=== PATIENT | female | born 1940 | race Caucasian/White ===

== ENCOUNTER 2017-10-27 10:24 | Inpatient (IN) | payer MEDICARE, OTHER ==
[2017-10-27] MEDS ORDERED: LORazepam 0.5 MG Tab PO PRN (12:14)
--- NOTE | 2017-10-27 12:59 | CR ---
DATE OF SERVICE: 10/27/2017 CLINICAL DATA: Cellulitis of unspecified part of limb. RIGHT ANKLE: There is soft tissue swelling over the medial and lateral malleoli. There is diffuse osteopenia. No acute fracture or dislocation. No focal lytic or blastic bone lesions. There are osteoarthritic changes involving multiple joints. There are vascular calcifications in the soft tissues. No other significant findings. [id number] MTDD
[2017-10-27] MEDS: Sodium Chloride 0.9% 1,000 ML IV SCH (13:00)
[2017-10-27] MEDS: Piperacillin/Tazobactam 3.375 GM in Sodium Chloride 0.9% 50 ML IV SCH ×2 (13:15→21:01)
[2017-10-27] MEDS: Warfarin 2.5 MG Tab PO SCH (18:27)
[2017-10-27] MEDS: Indomethacin 50 MG Cap PO SCH (20:28)
[2017-10-27] MEDS: Nicotine 14 MG/24 Hr Patch TRDERM SCH (20:29)
[2017-10-28] MEDS: Piperacillin/Tazobactam 3.375 GM in Sodium Chloride 0.9% 50 ML IV SCH ×4 (02:59→20:33)
[2017-10-28] MEDS ORDERED: Indomethacin 25 MG Cap ONE (07:11)
[2017-10-28] MEDS ORDERED: Acetaminophen/HYDROcodone 325-5 MG Tab ONE (08:32)
[2017-10-28] MEDS: Nicotine 14 MG/24 Hr Patch TRDERM SCH (09:59)
[2017-10-28] MEDS: Indomethacin 50 MG Cap PO SCH (10:00)
[2017-10-28] MEDS: Digoxin 125 MCG Tab PO SCH (10:01)
--- NOTE | 2017-10-28 13:27 | PCM.PN ---
- General Info Date of Service: 10/28/17 Admission Dx/Problem (Free Text): cellulitis of right leg Pressure ulcer: Subjective Update: Pt states her leg and foot are feeling better today, but is tender to touch. States her abdomen pain is better and no loose stools since yesterday. States her BP is always low. States she is starting to feel like having a cigarette. Functional Status: Reports: Pain Controlled, Tolerating Diet - Review of Systems General: Reports: No Symptoms HEENT: Reports: No Symptoms Pulmonary: Reports: Other (Uses oxygen at night) Cardiovascular: Reports: No Symptoms Gastrointestinal: Reports: No Symptoms Genitourinary: Reports: No Symptoms Musculoskeletal: Reports: Foot Pain Skin: Reports: Other ("blister to ankle/foot", requesting pain medication for foot before debridement started.) Neurological: Reports: No Symptoms Psychiatric: Reports: Other (States anxiety with thoughts of MRI today.) - Patient Data Vitals - Most Recent: Last Vital Signs Temp 97.9 F 10/28/17 11:00 Pulse 64 10/28/17 11:00 Resp 16 10/28/17 11:00 BP 84/44 L 10/28/17 11:00 Pulse Ox 97 10/28/17 11:00 Weight - Most Recent: 132 lb 12.8 oz I&O - Last 24 Hours: Intake & Output 10/27/17 10/28/17 10/28/17 22:59 06:59 14:59 Intake Total 750 Balance 750 Lab Results Last 24 Hours: Laboratory Results - last 24 hr 10/28/17 10/28/17 10/28/17 Range/Units 07:15 07:15 07:15 WBC 5.9 (4.0-11.0) K/uL RBC 3.80 (3.80-5.80) M/uL Hgb 12.8 (11.5-16.5) g/dL Hct 38.1 (37.0-47.0) % MCV 100 H (76-96) fL MCH 33.7 H (27.0-32.0) pg MCHC 33.6 (31.0-35.0) g/dL RDW 11.8 (11.0-16.0) % Plt Count 286 (150-500) K/uL MPV 10.4 H (6.0-10.0) fL Neut % (Auto) 58.1 (45.0-70.0) % Lymph % (Auto) 29.3 (20.0-40.0) % [place] % (Auto) 11.2 H (3.0-10.0) % Eos % (Auto) 0.9 L (1.0-5.0) % Baso % (Auto) 0.5 (0.0-0.5) % Neut # (Auto) 3.42 (2.00-7.50) K/uL Lymph # (Auto) 1.72 (1.50-4.00) K/uL [place] # (Auto) 0.66 (0.20-0.80) K/uL Eos # (Auto) 0.05 (0.04-0.40) K/uL Baso # (Auto) 0.03 (0.02-0.10) K/uL PT 47.6 H D (9.0-11.5) sec INR 5.1 H* D (1.0-3.5) Sodium 143 (136-145) mmol/L Potassium 4.0 (3.5-5.1) mmol/L Chloride 103 (98-107) mmol/L Carbon Dioxide 34.9 H (21.0-32.0) mmol/L Anion Gap 9.1 (5.0-15.0) mmol/L BUN 8 D (8-26) mg/dL Creatinine 1.02 (0.55-1.02) mg/dL Est Cr Clr Drug Dosing TNP Estimated GFR (MDRD) 52 L (>60) MLS/MIN BUN/Creatinine Ratio 7.8 (6-25) Glucose 165 H (74-100) mg/dL Calcium 8.7 (8.5-10.1) mg/dL Ryan Results Last 24 Hours: Microbiology 10/27/17 Unknown Gram Stain - Final Ankle, Right Med Orders - Current: Current Medications Albuterol (Ventolin Hfa) 0 gm INH Q4HR PRN PRN Reason: Shortness of Breath Digoxin (Lanoxin) 125 mcg PO DAILY [facility] Last Admin: 10/28/17 10:01 Dose: Not Given Sodium Chloride (Normal Saline) 1,000 mls @ 50 mls/hr IV ASDIRECTED [facility] Last Admin: 10/27/17 13:00 Dose: 50 mls/hr Piperacillin Sod/Tazobactam (Sod 3.375 gm/ Sodium Chloride) 50 mls @ 100 mls/ hr IV Q6H [facility] Last Admin: 10/28/17 10:15 Dose: 100 mls/hr Indomethacin (Indocin) 50 mg PO TID [facility] Last Admin: 10/28/17 10:00 Dose: 50 mg Lorazepam (Ativan) 0.5 mg PO Q4H PRN; Protocol PRN Reason: Anxiety Last Admin: 10/28/17 10:11 Dose: 0.5 mg Nicotine (Habitrol) 14 mg TRDERM DAILY [facility] Last Admin: 10/28/17 09:59 Dose: Not Given Pantoprazole Sodium (Protonix Iv) 40 mg IVPUSH Q12H [facility] Warfarin Sodium (Coumadin) 1.25 mg PO MoTuWeThFrSa@1800 [facility] Warfarin Sodium (Coumadin) 2.5 mg PO Kaye@1800 [facility] Discontinued Medications Hydrocodone Bitart/Acetaminophen ([place] 325-5 Mg) Confirm Administered Dose 1 tab .ROUTE .STK-MED ONE Stop: 10/28/17 08:33 Last Admin: 10/28/17 10:02 Dose: 1 tab Piperacillin Sod/Tazobactam (Sod 3.375 gm/ Sodium Chloride) 50 mls @ 100 mls/ hr IV Q6H [facility] Last Admin: 10/28/17 02:59 Dose: 100 mls/hr Indomethacin (Indocin) Confirm Administered Dose 50 mg .ROUTE .STK-MED ONE Stop: 10/28/17 07:12 Last Admin: 10/28/17 07:22 Dose: Not Given Warfarin Sodium (Coumadin) 1.25 mg PO DAILY [facility] Last Admin: 10/27/17 18:27 Dose: 1.25 mg Warfarin Sodium (Coumadin) 1.25 mg PO ASDIRECTED JIMMIE - Exam Quality Assessment: Supplemental Oxygen General: Alert, Oriented, No Acute Distress HEENT: Mucous Membr. Moist/[place] Neck: Supple, Trachea Midline Lungs: Clear to Auscultation, Normal Respiratory Effort Cardiovascular: Regular Rate, Regular Rhythm, No Murmurs GI/Abdominal Exam: Normal Bowel Sounds, Soft, Non-Tender, No Distention Extremities: Normal Range of Motion, No Pedal Edema, Normal Capillary Refill, Redness Skin: Warm, Dry Wound/Incisions: Erythema Improving, Other (PT debriding wound today) Neurological: No New Focal Deficit Psy/Mental Status: Alert, Normal Affect, Normal Mood - Problem List & Annotations (1) Cellulitis SNOMED Code(s): 199563628 Code(s): L03.90 - CELLULITIS, UNSPECIFIED Status: Acute Current Visit: Yes Qualifiers: Site of cellulitis of extremity: lower extremity Laterality: right (2) Pressure ulcer of ankle, right, unstageable SNOMED Code(s): 403698423 Code(s): L89.510 - PRESSURE ULCER OF RIGHT ANKLE, UNSTAGEABLE Status: Acute Current Visit: Yes Onset Date: ~10/23/17 - Problem List Review Problem List Initiated/Reviewed/Updated: Yes - My Orders Last 24 Hours: My Active Orders 10/27/17 13:33 CULTURE MRSA SURVEY [RM] Routine 10/27/17 14:27 Consult to Wound Care Services [CONS] Routine 10/27/17 15:38 PT Evaluation and Treatment [CONS] Routine 10/27/17 15:58 CIWAA Assessment [RC] 10,14,18,22,02,06 10/27/17 17:36 Albuterol [Ventolin HFA] 0 gm INH Q4HR PRN 10/27/17 20:00 Indomethacin [Indocin] 50 mg PO TID 10/28/17 08:00 Digoxin [Lanoxin] 125 mcg PO DAILY 10/28/17 09:00 Piperacillin/Tazobactam [Zosyn] 3.375 gm Sodium Chloride 0.9% [Normal Saline] 50 ml IV Q6H 10/28/17 10:00 CULTURE WOUND + SMEAR [RM] Routine 10/28/17 12:13 Ankle wo Cont Rt [MR] Routine 10/28/17 13:30 Pantoprazole [ProTONIX IV] 40 mg IVPUSH Q12H 10/28/17 18:00 Warfarin [Coumadin] 1.25 mg PO MoTuWeThFrSa@1800 10/31/17 11:18 INR,PT,PROTHROMBIN TIME [COAG] Routine 11/02/17 18:00 Warfarin [Coumadin] 2.5 mg PO Kaye@1800 - Assessment Assessment:: Cellulitis right lower extremity Pressure ulcer right lower extremity - Plan Plan:: Cellulitis: Pt to elevate foot in bed. IV Zosyn qid. CBC and BMP repeat . Pressure ulcer: PT consult to evaluate and treat. Dressing change per PT recommendation Elevate extremity to prevent pressure to ankle/foot. MRI right foot today. Medicate as needed for pain to right foot. Atrial Fib and group home use of anticoagulant: PT/INR coumadin as ordered. Will hold x 3 days and recheck PT/INR . Digoxin level in am. Oxygen per N/C at hs. With stomach pain, elevated PT/INR and loose stool with coffee ground like sediment will start Protonix 40 mg IV bid. History of nicotine addiction: May use nicoderm patch daily. History of alcohol use: May use Ativan per CIWA protocol.
[2017-10-28] MEDS: Pantoprazole 40 MG Vial IVPUSH SCH (15:12)
[2017-10-28] MEDS ORDERED: Warfarin 2.5 MG Tab PO SCH (18:00)
[2017-10-28] MEDS: Warfarin 2.5 MG Tab PO SCH (19:43)
[2017-10-29] MEDS: Albuterol 8 GM Inhaler INH PRN ×2 (00:24→10:17)
[2017-10-29] MEDS: Pantoprazole 40 MG Vial IVPUSH SCH ×2 (02:11→14:12)
[2017-10-29] MEDS: Piperacillin/Tazobactam 3.375 GM in Sodium Chloride 0.9% 50 ML IV SCH ×2 (02:16→08:37)
[2017-10-29] MEDS: Digoxin 125 MCG Tab PO SCH (08:32)
[2017-10-29] MEDS: Nicotine 14 MG/24 Hr Patch TRDERM SCH (08:33)
[2017-10-29] MEDS ORDERED: Lidocaine/Prilocaine 2.5-2.5% Crm 30 GM Tube TOP ONE (10:09)
[2017-10-29] MEDS ORDERED: Acetaminophen/HYDROcodone 325-5 MG Tab ONE (10:12)
[2017-10-29] MEDS: Acetaminophen/HYDROcodone 325-5 MG Tab PO PRN ×2 (10:18→14:10)
--- NOTE | 2017-10-29 10:39 | PCM.PN ---
- General Info Date of Service: 10/29/17 Admission Dx/Problem (Free Text): cellulitis of right leg Pressure ulcer: Subjective Update: States she is feeling better today. Pain to right ankle. States abdomen is feeling better. Functional Status: Reports: Tolerating Diet - Review of Systems General: Reports: No Symptoms HEENT: Reports: No Symptoms Pulmonary: Reports: No Symptoms Cardiovascular: Reports: No Symptoms Gastrointestinal: Reports: Decreased Appetite. Denies: Nausea, Vomiting Genitourinary: Reports: No Symptoms Musculoskeletal: Reports: Foot Pain Skin: Reports: Other (wound to right foot) Neurological: Reports: No Symptoms Psychiatric: Reports: No Symptoms - Patient Data Vitals - Most Recent: Last Vital Signs Temp 97.9 F 10/29/17 08:00 Pulse 57 L 10/29/17 08:00 Resp 16 10/29/17 08:00 BP 69/44 L 10/29/17 08:00 Pulse Ox 99 10/29/17 08:00 Weight - Most Recent: 132 lb 12.8 oz I&O - Last 24 Hours: Intake & Output 10/28/17 10/29/17 10/29/17 22:59 06:59 14:59 Intake Total 700 650 Balance 700 650 Lab Results Last 24 Hours: Laboratory Results - last 24 hr 10/29/17 Range/Units 08:00 Digoxin 1.3 (0.5-2.00) ng/mL Ryan Results Last 24 Hours: Microbiology 10/27/17 Unknown Gram Stain - Final Ankle, Right Wound Culture - Final (Mrsa) Staphylococcus Aureus 10/27/17 13:33 MRSA Surveillance Culture - Final Nose, Unspecified NO MRSA ISOLATED 10/28/17 10:00 Gram Stain - Final Heel, Right Wound Culture - Final (Mrsa) Staphylococcus Aureus Med Orders - Current: Current Medications Hydrocodone Bitart/Acetaminophen ([place] 325-5 Mg) 1 tab PO Q6H PRN PRN Reason: Pain Albuterol (Ventolin Hfa) 0 gm INH Q4HR PRN PRN Reason: Shortness of Breath Last Admin: 10/29/17 10:17 Dose: 2 puff Digoxin (Lanoxin) 125 mcg PO DAILY JIMMIE Last Admin: 10/29/17 08:32 Dose: Not Given Sodium Chloride (Normal Saline) 1,000 mls @ 50 mls/hr IV ASDIRECTED JIMMIE Last Admin: 10/27/17 13:00 Dose: 50 mls/hr Piperacillin Sod/Tazobactam (Sod 3.375 gm/ Sodium Chloride) 50 mls @ 100 mls/ hr IV Q6H [facility] Last Admin: 10/29/17 08:37 Dose: 100 mls/hr Vancomycin HCl 1,000 mg/ (Dextrose/Water) 250 mls @ 167 mls/hr IV Q12H JIMMIE Indomethacin (Indocin) 50 mg PO TID [facility] Last Admin: 10/28/17 10:00 Dose: 50 mg Lidocaine/Prilocaine (Emla Crm) 5 gm TOP ASDIRECTED PRN PRN Reason: WOUND DRESSINGS Lorazepam (Ativan) 0.5 mg PO Q4H PRN; Protocol PRN Reason: Anxiety Last Admin: 10/28/17 10:11 Dose: 0.5 mg Nicotine (Habitrol) 14 mg TRDERM DAILY [facility] Last Admin: 10/29/17 08:33 Dose: Not Given Pantoprazole Sodium (Protonix Iv) 40 mg IVPUSH Q12H [facility] Last Admin: 10/29/17 02:11 Dose: 40 mg Warfarin Sodium (Coumadin) 1.25 mg PO MoTuWeThFrSa@1800 JIMMIE Warfarin Sodium (Coumadin) 2.5 mg PO Kaye@1800 [facility] Discontinued Medications Hydrocodone Bitart/Acetaminophen ([place] 325-5 Mg) Confirm Administered Dose 1 tab .ROUTE .STK-MED ONE Stop: 10/28/17 08:33 Last Admin: 10/28/17 10:02 Dose: 1 tab Hydrocodone Bitart/Acetaminophen ([place] 325-5 Mg) Confirm Administered Dose 1 tab .ROUTE .STK-MED ONE Stop: 10/29/17 10:13 Last Admin: 10/29/17 10:19 Dose: Not Given Piperacillin Sod/Tazobactam (Sod 3.375 gm/ Sodium Chloride) 50 mls @ 100 mls/ hr IV Q6H [facility] Last Admin: 10/28/17 02:59 Dose: 100 mls/hr Indomethacin (Indocin) Confirm Administered Dose 50 mg .ROUTE .STK-MED ONE Stop: 10/28/17 07:12 Last Admin: 10/28/17 07:22 Dose: Not Given Warfarin Sodium (Coumadin) 1.25 mg PO DAILY [facility] Last Admin: 10/28/17 19:43 Dose: Not Given Warfarin Sodium (Coumadin) 1.25 mg PO ASDIRECTED JIMMIE - Exam Quality Assessment: Supplemental Oxygen (at hs) General: Alert, Oriented, Cooperative HEENT: Mucous Membr. Moist/[place] Neck: Supple Lungs: Normal Respiratory Effort, Decreased Breath Sounds Cardiovascular: Regular Rate, Other (hypotension) GI/Abdominal Exam: Normal Bowel Sounds, Soft Extremities: Normal Range of Motion, Non-Tender, No Pedal Edema, Normal Capillary Refill Peripheral Pulses: 2+: Dorsalis Pedis (L), Dorsalis Pedis (R) Skin: Warm, Dry Wound/Incisions: Dressing Dry and Intact, No Drainage, Erythema Improving Neurological: No New Focal Deficit Psy/Mental Status: Alert, Normal Affect - Problem List & Annotations (1) Cellulitis SNOMED Code(s): 612834560 Code(s): L03.90 - CELLULITIS, UNSPECIFIED Status: Acute Current Visit: Yes Qualifiers: Site of cellulitis of extremity: lower extremity Laterality: right (2) Pressure ulcer of ankle, right, unstageable SNOMED Code(s): 979669279 Code(s): L89.510 - PRESSURE ULCER OF RIGHT ANKLE, UNSTAGEABLE Status: Acute Current Visit: Yes Onset Date: ~10/23/17 - Problem List Review Problem List Initiated/Reviewed/Updated: Yes - My Orders Last 24 Hours: My Active Orders 10/28/17 12:13 Ankle wo Cont Rt [MR] Routine 10/28/17 14:00 Pantoprazole [ProTONIX IV] 40 mg IVPUSH Q12H 10/28/17 18:00 Warfarin [Coumadin] 1.25 mg PO Mariusz@1800 10/29/17 10:07 Acetaminophen/HYDROcodone [[place] 325-5 MG] 1 tab PO Q6H PRN 10/29/17 10:17 Lidocaine/Prilocaine [EMLA Crm] 5 gm TOP ASDIRECTED PRN 10/29/17 11:00 Vancomycin 1,000 mg Dextrose 5% in Water 250 ml IV Q12H 10/30/17 08:00 BASIC METABOLIC PANEL,BMP [CHEM] Routine CBC WITH AUTO DIFF [HEME] Routine INR,PT,PROTHROMBIN TIME [COAG] Routine 10/31/17 11:00 VANCOMYCIN TROUGH [CHEM] Routine 10/31/17 11:18 INR,PT,PROTHROMBIN TIME [COAG] Routine 11/02/17 18:00 Warfarin [Coumadin] 2.5 mg PO Kaye@1800 - Assessment Assessment:: Cellulitis right lower extremity Pressure ulcer right lower extremity - Plan Plan:: 10-29-17 Cellulitis: Pt to elevate foot in bed. Vancomycin IV started with result of C&S of wound. Consulted with infection control and pharmacist. CBC and BMP repeat . Vancomycin trough ordered. MRSA precautions started. Pressure ulcer: PT evaluate and treat. Dressing change per PT recommendation. Begin education with for wound care. is present for visit this am and asking appropriate questions. Encouraged questions and answered questions. Reinforced dressing this am with xeroform and moist gauze. Elevate extremity to prevent pressure to ankle/foot. MRI right foot completed, results pending Medicate as needed for pain to right foot. 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 Digoxin level is normal, dose held with low pulse. Oxygen per N/C at hs. DVT prophylaxis started and incentive spirometry tid-qid. Tenderness to abdomen and loose stools improved, continue Protonix 40 mg IV bid. History of nicotine addiction: May use nicoderm patch daily. History of alcohol use: May use Ativan per CIWA protocol.
[2017-10-29] MEDS: Albuterol 8 GM Inhaler INH SCH ×3 (12:36→19:43)
[2017-10-29] MEDS: Lidocaine/Prilocaine 2.5-2.5% Crm 5 GM Kit TOP PRN (14:11)
[2017-10-29] MEDS: Sodium Chloride 0.9% 1,000 ML IV SCH (22:02)
[2017-10-30] MEDS: Acetaminophen/HYDROcodone 325-5 MG Tab PO PRN ×2 (00:40→10:07)
[2017-10-30] MEDS: Pantoprazole 40 MG Vial IVPUSH SCH ×2 (01:54→14:25)
[2017-10-30] MEDS: Albuterol 8 GM Inhaler INH SCH ×4 (08:27→20:22)
[2017-10-30] MEDS: Nicotine 14 MG/24 Hr Patch TRDERM SCH (08:27)
[2017-10-30] MEDS: Digoxin 125 MCG Tab PO SCH (09:23)
[2017-10-30] MEDS: Lidocaine/Prilocaine 2.5-2.5% Crm 5 GM Kit TOP PRN (10:08)
--- NOTE | 2017-10-30 18:13 | PCM.PN ---
- General Info Date of Service: 10/30/17 Admission Dx/Problem (Free Text): cellulitis of right leg Pressure ulcer: Subjective Update: Crissy states she is feeling better and pain to foot is better. States she is doing ok without smoking. is present and states he has looked at the wound last night with PT during the dressing change. states he has done dressing changes in the past and could be taught how to do the dressing change upon discharge. Functional Status: Reports: Tolerating Diet, Urinating, Incentive Spirometry - Review of Systems General: Reports: No Symptoms, Other (appetite imporved) HEENT: Reports: No Symptoms Pulmonary: Reports: No Symptoms Cardiovascular: Reports: No Symptoms Gastrointestinal: Reports: No Symptoms Genitourinary: Reports: No Symptoms Musculoskeletal: Reports: No Symptoms Skin: Reports: Other (wound healing, painful) Neurological: Reports: No Symptoms Psychiatric: Reports: No Symptoms - Patient Data Vitals - Most Recent: Last Vital Signs Temp 97.7 F 10/30/17 08:00 Pulse 60 10/30/17 08:00 Resp 14 10/30/17 04:00 BP 68/55 L 10/30/17 08:00 Pulse Ox 86 L 10/30/17 08:00 Weight - Most Recent: 132 lb I&O - Last 24 Hours: Intake & Output 10/30/17 10/30/17 10/30/17 06:59 14:59 22:59 Intake Total 850 Balance 850 Lab Results Last 24 Hours: Laboratory Results - last 24 hr 10/30/17 10/30/17 10/30/17 Range/Units 07:15 07:15 07:15 WBC 6.8 (4.0-11.0) K/uL RBC 3.60 L (3.80-5.80) M/uL Hgb 12.1 (11.5-16.5) g/dL Hct 36.8 L (37.0-47.0) % MCV 102 H (76-96) fL MCH 33.6 H (27.0-32.0) pg MCHC 32.9 (31.0-35.0) g/dL RDW 12.2 (11.0-16.0) % Plt Count 237 (150-500) K/uL MPV 10.7 H (6.0-10.0) fL Neut % (Auto) 62.6 (45.0-70.0) % Lymph % (Auto) 25.4 (20.0-40.0) % [place] % (Auto) 10.3 H (3.0-10.0) % Eos % (Auto) 1.0 (1.0-5.0) % Baso % (Auto) 0.7 H (0.0-0.5) % Neut # (Auto) 4.23 (2.00-7.50) K/uL Lymph # (Auto) 1.72 (1.50-4.00) K/uL [place] # (Auto) 0.70 (0.20-0.80) K/uL Eos # (Auto) 0.07 (0.04-0.40) K/uL Baso # (Auto) 0.05 (0.02-0.10) K/uL PT 25.9 H D (9.0-11.5) sec INR 2.7 D (1.0-3.5) Sodium 140 (136-145) mmol/L Potassium 4.3 (3.5-5.1) mmol/L Chloride 105 (98-107) mmol/L Carbon Dioxide 30.9 (21.0-32.0) mmol/L Anion Gap 8.4 (5.0-15.0) mmol/L BUN 12 D (8-26) mg/dL Creatinine 1.19 H (0.55-1.02) mg/dL Est Cr Clr Drug Dosing TNP Estimated GFR (MDRD) 44 L (>60) MLS/MIN BUN/Creatinine Ratio 10.1 (6-25) Glucose 120 H (74-100) mg/dL Calcium 8.4 L (8.5-10.1) mg/dL Med Orders - Current: Current Medications Hydrocodone Bitart/Acetaminophen ([place] 325-5 Mg) 1 tab PO Q6H PRN PRN Reason: Pain Last Admin: 10/30/17 10:07 Dose: 1 tab Albuterol (Ventolin Hfa) 8 gm INH QID [facility] Last Admin: 10/30/17 16:18 Dose: 2 puff Digoxin (Lanoxin) 125 mcg PO DAILY [facility] Last Admin: 10/30/17 09:23 Dose: 125 mcg Sodium Chloride (Normal Saline) 1,000 mls @ 50 mls/hr IV ASDIRECTED [facility] Last Admin: 10/29/17 22:02 Dose: 50 mls/hr Vancomycin HCl 1 gm/ Sodium (Chloride) 250 mls @ 200 mls/hr IV BID@1000,2200 [facility] Last Admin: 10/30/17 10:21 Dose: 200 mls/hr Indomethacin (Indocin) 50 mg PO TID [facility] Last Admin: 10/28/17 10:00 Dose: 50 mg Lidocaine/Prilocaine (Emla Crm) 5 gm TOP ASDIRECTED PRN PRN Reason: WOUND DRESSINGS Last Admin: 10/30/17 10:08 Dose: 1 applic Lorazepam (Ativan) 0.5 mg PO Q4H PRN; Protocol PRN Reason: Anxiety Last Admin: 10/28/17 10:11 Dose: 0.5 mg Nicotine (Habitrol) 14 mg TRDERM DAILY [facility] Last Admin: 10/30/17 08:27 Dose: Not Given Pantoprazole Sodium (Protonix Iv) 40 mg IVPUSH Q12H [facility] Last Admin: 10/30/17 14:25 Dose: 40 mg Warfarin Sodium (Coumadin) 1.25 mg PO MoTuWeThFrSa@1800 JIMMIE Warfarin Sodium (Coumadin) 2.5 mg PO Kaye@1800 [facility] Discontinued Medications Hydrocodone Bitart/Acetaminophen ([place] 325-5 Mg) Confirm Administered Dose 1 tab .ROUTE .STK-MED ONE Stop: 10/28/17 08:33 Last Admin: 10/28/17 10:02 Dose: 1 tab Hydrocodone Bitart/Acetaminophen ([place] 325-5 Mg) Confirm Administered Dose 1 tab .ROUTE .STK-MED ONE Stop: 10/29/17 10:13 Last Admin: 10/29/17 10:19 Dose: Not Given Albuterol (Ventolin Hfa) 0 gm INH Q4HR PRN PRN Reason: Shortness of Breath Last Admin: 10/29/17 10:17 Dose: 2 puff Piperacillin Sod/Tazobactam (Sod 3.375 gm/ Sodium Chloride) 50 mls @ 100 mls/ hr IV Q6H [facility] Last Admin: 10/28/17 02:59 Dose: 100 mls/hr Piperacillin Sod/Tazobactam (Sod 3.375 gm/ Sodium Chloride) 50 mls @ 100 mls/ hr IV Q6H [facility] Last Admin: 10/29/17 08:37 Dose: 100 mls/hr Vancomycin HCl 1 gm/ Sodium (Chloride) 250 mls @ 200 mls/hr IV ASDIRECTED [facility] Stop: 10/29/17 12:00 Last Admin: 10/29/17 11:05 Dose: 200 mls/hr Indomethacin (Indocin) Confirm Administered Dose 50 mg .ROUTE .STK-MED ONE Stop: 10/28/17 07:12 Last Admin: 10/28/17 07:22 Dose: Not Given Warfarin Sodium (Coumadin) 1.25 mg PO DAILY [facility] Last Admin: 10/28/17 19:43 Dose: Not Given Warfarin Sodium (Coumadin) 1.25 mg PO ASDIRECTED [facility] - Exam Quality Assessment: Supplemental Oxygen (at hs), DVT Prophylaxis (AVTAR hose to left leg) General: Alert, Oriented, Cooperative, No Acute Distress HEENT: Mucous Membr. Moist/[place] Neck: Supple Lungs: Normal Respiratory Effort Cardiovascular: Regular Rate, Regular Rhythm GI/Abdominal Exam: Normal Bowel Sounds, Soft, Non-Tender Extremities: Normal Range of Motion, No Pedal Edema, Normal Capillary Refill Peripheral Pulses: 2+: Dorsalis Pedis (L), Dorsalis Pedis (R) Skin: Warm, Dry Wound/Incisions: Healing Well, Dressing Dry and Intact, Other (erythema resolved to leg and foot.) Neurological: Normal Speech, Strength Equal Bilateral Psy/Mental Status: Alert, Normal Affect, Normal Mood - Problem List & Annotations (1) Cellulitis SNOMED Code(s): 364050125 Code(s): L03.90 - CELLULITIS, UNSPECIFIED Status: Acute Current Visit: Yes Qualifiers: Site of cellulitis of extremity: lower extremity Laterality: right (2) Pressure ulcer of ankle, right, unstageable SNOMED Code(s): 754086606 Code(s): L89.510 - PRESSURE ULCER OF RIGHT ANKLE, UNSTAGEABLE Status: Acute Current Visit: Yes Onset Date: ~10/23/17 - Problem List Review Problem List Initiated/Reviewed/Updated: Yes - My Orders Last 24 Hours: My Active Orders 10/29/17 22:00 Vancomycin 1 gm Sodium Chloride 0.9% [Normal Saline] 250 ml IV BID@1000,2200 10/31/17 11:18 INR,PT,PROTHROMBIN TIME [COAG] Routine 11/02/17 18:00 Warfarin [Coumadin] 2.5 mg PO Kaye@1800 - Assessment Assessment:: 10-30-17 Cellulitis right lower extremity resolved Pressure ulcer right lower extremity - Plan Plan:: 10-30-17 Pressure ulcer: PT evaluate and treat. Dressing change per PT recommendation. Begin education with for wound care. is present for visit this am and asking appropriate questions. Encouraged questions and answered questions. Reinforced dressing this am with xeroform and moist gauze. Elevate extremity to prevent pressure to ankle/foot. MRI right foot completed, results pending Medicate as needed for pain to right foot. Consult with Dr Hernandez today to assess wound bed, continue with debridement and daily dressing change. Consult with PT today and discussed care of wound. Pt to elevate foot in bed. Vancomycin IV continued with result of C&S of wound. Vancomycin trough ordered before am dose 10-31-17 MRSA precautions and education to pt and . 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 Oxygen per N/C at hs. DVT prophylaxis and incentive spirometry tid-qid. Tenderness to abdomen resolved and loose stools resolved, continue Protonix 40 mg IV bid. History of nicotine addiction: May use nicoderm patch daily. History of alcohol use: May use Ativan per [facility]WA protocol.
[2017-10-31] MEDS: Acetaminophen/HYDROcodone 325-5 MG Tab PO PRN ×2 (00:38→08:35)
[2017-10-31] MEDS: Pantoprazole 40 MG Vial IVPUSH SCH (00:39)
[2017-10-31] MEDS: Nicotine 14 MG/24 Hr Patch TRDERM SCH (08:13)
[2017-10-31] MEDS: Digoxin 125 MCG Tab PO SCH (08:13)
[2017-10-31] MEDS: Albuterol 8 GM Inhaler INH SCH (08:14)
[2017-10-31] MEDS ORDERED: Indomethacin 25 MG Cap ONE (08:20)
[2017-10-31] MEDS: Indomethacin 50 MG Cap PO SCH (08:21)
[2017-10-31] MEDS ORDERED: Lidocaine 4% Top Soln 50 ML Bottle ONE (09:30)
[2017-10-31] MEDS ORDERED: Lidocaine 4% Top Soln 50 ML Bottle TOP PRN (11:10)
--- NOTE | 2017-10-31 17:06 | PCM.DCSUM1 ---
Discharge Summary - Discharge Data Discharge Date: 10/31/17 Discharge Disposition: DC/Tfer W/I Hosp To [facility] Condition: Good - Discharge Diagnosis/Problem(s) (1) Cellulitis SNOMED Code(s): 865974185 ICD Code: L03.90 - CELLULITIS, UNSPECIFIED Status: Acute Priority: Medium Current Visit: Yes Onset Date: ~10/31/17 Qualifiers: Site of cellulitis: extremity Site of cellulitis of extremity: lower extremity Laterality: right Qualified Code(s): L03.115 - Cellulitis of right lower limb (2) Pressure ulcer of ankle, right, unstageable SNOMED Code(s): 213503670 ICD Code: L89.510 - PRESSURE ULCER OF RIGHT ANKLE, UNSTAGEABLE Status: Acute Current Visit: Yes Onset Date: ~10/23/17 - Patient Summary/Data Consults: Consultations 10/27/17 14:27 Consult to Wound Care Services [CONS] Routine Comment: Physician Instructions: Reason for Consult: ulcer on the right ankle 10/27/17 15:38 PT Evaluation and Treatment [CONS] Routine Please Evaluate and Treat. PT Reason for Consult: Wound Care This query below is only for informational purposes and is not editable. Admission Diagnosis/Problem: Cellulitis - Discharge Plan Home Medications: Home Meds Albuterol Sulfate [Ventolin Hfa] 1 - 2 puff INH Q4HR 10/27/17 [History] Digoxin [Digoxin] 125 mcg PO DAILY 10/27/17 [History] Warfarin [Coumadin] 1 mg PO ASDIRECTED 10/27/17 [History] - Discharge Summary/Plan Comment Discharge Summary/Plan Comment: Transfer care to [facility] program within [facility]. - General Info Date of Service: 10/31/17 Admission Dx/Problem (Free Text: cellulitis of right leg Pressure ulcer: Subjective Update: Pt states pain is much better to her foot today. States she is starting be up in the chair today. Functional Status: Reports: Pain Controlled, Tolerating Diet, Incentive Spirometry - Review of Systems General: Reports: Weakness HEENT: Reports: No Symptoms Pulmonary: Reports: No Symptoms Cardiovascular: Reports: No Symptoms Gastrointestinal: Reports: Decreased Appetite Genitourinary: Reports: No Symptoms Musculoskeletal: Reports: Foot Pain Skin: Reports: No Symptoms Neurological: Reports: No Symptoms Psychiatric: Reports: No Symptoms - Patient Data Vitals - Most Recent: Last Vital Signs Temp 98.6 F 10/31/17 08:00 Pulse 139 H 10/31/17 08:13 Resp 12 10/31/17 08:00 BP 88/46 L 10/31/17 08:00 Pulse Ox 98 10/31/17 04:53 Weight - Most Recent: 132 lb I&O - Last 24 hours: Intake & Output 10/31/17 10/31/17 10/31/17 06:59 14:59 22:59 Intake Total 850 Balance 850 Lab Results - Last 24 hrs: Laboratory Results - last 24 hr 10/31/17 10/31/17 Range/Units 09:30 09:30 Hemoglobin A1c 7.8 H (4.5-6.2) % Vancomycin Trough 30.7 H (10.0-15.0) ug/mL Med Orders - Current: Current Medications Hydrocodone Bitart/Acetaminophen ([place] 325-5 Mg) 1 tab PO Q6H PRN PRN Reason: Pain Last Admin: 10/31/17 08:35 Dose: 1 tab Albuterol (Ventolin Hfa) 8 gm INH QID [facility] Last Admin: 10/31/17 08:14 Dose: 2 puff Digoxin (Lanoxin) 125 mcg PO DAILY [facility] Last Admin: 10/31/17 08:13 Dose: 125 mcg Sodium Chloride (Normal Saline) 1,000 mls @ 50 mls/hr IV ASDIRECTED [facility] Last Admin: 10/29/17 22:02 Dose: 50 mls/hr Vancomycin HCl 1 gm/ Sodium (Chloride) 250 mls @ 200 mls/hr IV BID@1000,2200 [facility] Last Admin: 10/31/17 14:56 Dose: Not Given Lidocaine HCl (Xylocaine 4% Top Soln) 50 ml TOP ASDIRECTED PRN PRN Reason: WOUND CLEANING Last Admin: 10/31/17 13:08 Dose: 8 ml Lidocaine/Prilocaine ([place] Crm) 5 gm TOP ASDIRECTED PRN PRN Reason: WOUND DRESSINGS Last Admin: 10/30/17 10:08 Dose: 1 applic Lorazepam (Ativan) 0.5 mg PO Q4H PRN; Protocol PRN Reason: Anxiety Last Admin: 10/28/17 10:11 Dose: 0.5 mg Nicotine (Habitrol) 14 mg TRDERM DAILY [facility] Last Admin: 10/31/17 08:13 Dose: Not Given Pantoprazole Sodium (Protonix Iv) 40 mg IVPUSH Q12H [facility] Last Admin: 10/31/17 00:39 Dose: 40 mg Warfarin Sodium (Coumadin) 1 mg PO DAILY@1800 [facility] Discontinued Medications Hydrocodone Bitart/Acetaminophen ([place] 325-5 Mg) Confirm Administered Dose 1 tab .ROUTE .STK-MED ONE Stop: 10/28/17 08:33 Last Admin: 10/28/17 10:02 Dose: 1 tab Hydrocodone Bitart/Acetaminophen ([place] 325-5 Mg) Confirm Administered Dose 1 tab .ROUTE .STK-MED ONE Stop: 10/29/17 10:13 Last Admin: 10/29/17 10:19 Dose: Not Given Albuterol (Ventolin Hfa) 0 gm INH Q4HR PRN PRN Reason: Shortness of Breath Last Admin: 10/29/17 10:17 Dose: 2 puff Piperacillin Sod/Tazobactam (Sod 3.375 gm/ Sodium Chloride) 50 mls @ 100 mls/ hr IV Q6H [facility] Last Admin: 10/28/17 02:59 Dose: 100 mls/hr Piperacillin Sod/Tazobactam (Sod 3.375 gm/ Sodium Chloride) 50 mls @ 100 mls/ hr IV Q6H [facility] Last Admin: 10/29/17 08:37 Dose: 100 mls/hr Vancomycin HCl 1 gm/ Sodium (Chloride) 250 mls @ 200 mls/hr IV ASDIRECTED [facility] Stop: 10/29/17 12:00 Last Admin: 10/29/17 11:05 Dose: 200 mls/hr Indomethacin (Indocin) 50 mg PO TID [facility] Last Admin: 10/28/17 10:00 Dose: 50 mg Indomethacin (Indocin) Confirm Administered Dose 50 mg .ROUTE .STK-MED ONE Stop: 10/28/17 07:12 Last Admin: 10/28/17 07:22 Dose: Not Given Indomethacin (Indocin) Confirm Administered Dose 50 mg .ROUTE .STK-MED ONE Stop: 10/31/17 08:21 Last Admin: 10/31/17 08:21 Dose: 50 mg Lidocaine HCl (Xylocaine 4% Top Soln) 50 ml .ROUTE .STK-MED ONE Stop: 10/31/17 09:31 Warfarin Sodium (Coumadin) 1.25 mg PO DAILY [facility] Last Admin: 10/28/17 19:43 Dose: Not Given Warfarin Sodium (Coumadin) 1.25 mg PO ASDIRECTED [facility] Warfarin Sodium (Coumadin) 1.25 mg PO MoTuWeThFrSa@1800 [facility] Last Admin: 10/30/17 18:16 Dose: 1.25 mg Warfarin Sodium (Coumadin) 2.5 mg PO Kaye@1800 [facility] - Exam Quality Assessment: Reports: Supplemental Oxygen (at hs), DVT Prophylaxis General: Reports: Alert, Oriented, Cooperative, No Acute Distress HEENT: Reports: Mucous Membr. Moist/[place] Neck: Reports: Supple, Trachea Midline Lungs: Reports: Normal Respiratory Effort, Decreased Breath Sounds Cardiovascular: Reports: Regular Rate, Regular Rhythm GI/Abdominal Exam: Normal Bowel Sounds, Soft, Non-Tender Back Exam: Reports: Normal Inspection, Full Range of Motion Extremities: Normal Capillary Refill, Pedal Edema (Mild pedal edema to top of right foot) Skin: Reports: Warm, Dry Wound/Incisions: Reports: Healing Well, Other (See PT notes for debridement and dressing change) Neurological: Reports: No New Focal Deficit Psy/Mental Status: Reports: Alert, Normal Affect, Normal Mood *Q Meaningful Use (DIS) - VTE *Q VTE Criteria *Q: - Stroke *Q Stroke Criteria *Q: - AMI *Q AMI Criteria *Q:
[2017-11-02] MEDS ORDERED: Warfarin 2.5 MG Tab PO SCH (18:00)
--- NOTE | 2017-11-05 10:45 | MR ---
DATE OF SERVICE: 10/28/2017 CLINICAL DATA: CELLULITIS Right ankle MRI: T1 and T2-weighted sagittal and axial images through the ankle and hindfoot were obtained. Also T1 and T2 FSE coronal images were obtained. No priors. Motion artifact degrades image quality on multiple sequences. The Achilles tendon appears normal. The peroneus brevis and peroneus longus tendons appear intact. The posterior tibial, flexor digitorum longus, and flexor hallucis longus tendons medially are intact. There is small moderate fluis within the posterior tibial tendon sheath. the anterior ankle tendons appear intact. The tibiotalar and tibial calcaneal ligaments appear intact. The anterior and posterior tibiofibular and anterior and posterior talofibular ligaments appear intact. Ligaments appear intact. Sinus Tarsi appears intact. There is a small osteochondral lesion involving the talar dome medially. There is diffuse subcutaneous edema and swelling throughtout the distal lower leg and adjacent to the ankle. There is also edema within the pre-Achilles fat pad. No associated marrow abnormalities. The findings are consistent with a clinical history of cellulitis. No evidence of abscess. There is a small amount of fluid within the tibiotalar joint and posterior recess. Thank you for allowing us to participate in the care of your patient. YEIMY
== END 2017-10-31 14:35 | disposition swing bed (61) | DRG 603 ==
LOC: LB.CLINIC 10:24 → LB.MS 11:10
PROVIDERS: ADMIT Nurse Practitioner Family; ATTEND Nurse Practitioner Family
DX: L03.119 Cellulitis of unspecified part of limb (principal); L03.115 Cellulitis of right lower limb; E11.622 Type 2 diabetes mellitus with other skin ulcer; I11.0 Hypertensive heart disease with heart failure; I50.9 Heart failure, unspecified; I48.91 Unspecified atrial fibrillation; M10.9 Gout, unspecified; Z79.01 Long term (current) use of anticoagulants; Z72.0 Tobacco use; J44.9 Chronic obstructive pulmonary disease, unspecified; Z72.89 Other problems related to lifestyle; Z99.81 Dependence on supplemental oxygen; L89.510 Pressure ulcer of right ankle, unstageable; B95.62 Methicillin resistant Staphylococcus aureus infection as the cause of diseases classified elsewhere
CPT/HCPCS: 36415; 73610-RT; 73721-RT; 80048; 80162; 80202; 83036; 85025; 85610; 87070; 87077; 87186; 87205; 97161-GP; 97597-GP; 97598-GP; A9270-GY; C9113; J2543; J3370; J7040; J7050

== ENCOUNTER 2017-10-31 09:57 | Inpatient (IN) | payer MEDICARE, OTHER ==
[2017-10-31] MEDS ORDERED: Tuberculin, PPD 5 Units/0.1 ML 1 ML MDV IDERM ONE (14:40)
[2017-10-31] MEDS ORDERED: Sodium Chloride 0.9% 10 ML Syringe FLUSH PRN (14:40)
[2017-10-31] MEDS: metFORMIN 500 MG Tab PO SCH (18:18)
[2017-10-31] MEDS: Pantoprazole 40 MG Tab.CR PO SCH (20:19)
[2017-10-31] MEDS: Sulfamethoxazole/Trimethoprim 800-160 MG Tab PO SCH (20:19)
[2017-10-31] MEDS: Acetaminophen/HYDROcodone 325-5 MG Tab PO PRN (20:44)
[2017-11-01] MEDS: Albuterol 8 GM Inhaler INH SCH ×5 (00:06→17:58)
[2017-11-01] MEDS: Pantoprazole 40 MG Tab.CR PO SCH ×2 (06:37→19:22)
[2017-11-01] MEDS: metFORMIN 500 MG Tab PO SCH ×3 (08:44→17:57)
[2017-11-01] MEDS: Nicotine 7 MG/24 Hr Patch TRDERM SCH (08:45)
[2017-11-01] MEDS: Digoxin 125 MCG Tab PO SCH (08:45)
[2017-11-01] MEDS: Sulfamethoxazole/Trimethoprim 800-160 MG Tab PO SCH ×2 (08:46→19:23)
[2017-11-01] MEDS: Acetaminophen/HYDROcodone 325-5 MG Tab PO PRN ×2 (08:47→19:23)
[2017-11-01] MEDS: Lactobacillus Acidophilus/Lactobacillus Sporogenes (Probiotic) Tab PO SCH (11:45)
[2017-11-02] MEDS: Acetaminophen/HYDROcodone 325-5 MG Tab PO PRN ×3 (02:37→19:50)
[2017-11-02] MEDS: Albuterol 8 GM Inhaler INH SCH ×4 (02:38→12:00)
[2017-11-02] MEDS: Pantoprazole 40 MG Tab.CR PO SCH ×2 (06:24→19:50)
[2017-11-02] MEDS: metFORMIN 500 MG Tab PO SCH ×2 (08:23→17:29)
[2017-11-02] MEDS: Nicotine 7 MG/24 Hr Patch TRDERM SCH (08:23)
[2017-11-02] MEDS: Digoxin 125 MCG Tab PO SCH (08:24)
[2017-11-02] MEDS: Sulfamethoxazole/Trimethoprim 800-160 MG Tab PO SCH ×2 (08:28→19:50)
[2017-11-02] MEDS: Lactobacillus Acidophilus/Lactobacillus Sporogenes (Probiotic) Tab PO SCH (12:17)
[2017-11-03] MEDS: Acetaminophen/HYDROcodone 325-5 MG Tab PO PRN ×3 (00:32→20:26)
[2017-11-03] MEDS: Albuterol 8 GM Inhaler INH SCH ×5 (00:33→23:38)
[2017-11-03] MEDS: Pantoprazole 40 MG Tab.CR PO SCH ×3 (05:55→20:20)
[2017-11-03] MEDS: metFORMIN 500 MG Tab PO SCH (08:40)
[2017-11-03] MEDS: Nicotine 7 MG/24 Hr Patch TRDERM SCH (08:40)
[2017-11-03] MEDS: Digoxin 125 MCG Tab PO SCH (08:40)
[2017-11-03] MEDS: Sulfamethoxazole/Trimethoprim 800-160 MG Tab PO SCH (08:42)
[2017-11-03] MEDS: Lactobacillus Acidophilus/Lactobacillus Sporogenes (Probiotic) Tab PO SCH (12:40)
[2017-11-04] MEDS: Albuterol 8 GM Inhaler INH SCH ×4 (05:00→22:15)
[2017-11-04] MEDS: Pantoprazole 40 MG Tab.CR PO SCH ×2 (07:00→21:36)
[2017-11-04] MEDS: Nicotine 7 MG/24 Hr Patch TRDERM SCH (08:00)
[2017-11-04] MEDS: Digoxin 125 MCG Tab PO SCH (08:00)
[2017-11-04] MEDS: Sulfamethoxazole/Trimethoprim 800-160 MG Tab PO SCH (08:00)
[2017-11-04] MEDS ORDERED: Lactobacillus Acidophilus/Lactobacillus Sporogenes (Probiotic) Tab ONE (12:00)
[2017-11-04] MEDS ORDERED: Digoxin 125 MCG Tab ONE (12:00)
[2017-11-04] MEDS: Lactobacillus Acidophilus/Lactobacillus Sporogenes (Probiotic) Tab PO SCH (12:00)
[2017-11-04] MEDS ORDERED: Sulfamethoxazole/Trimethoprim 800-160 MG Tab ONE (12:00)
[2017-11-04] MEDS ORDERED: Lidocaine 4% Top Soln 4 ML LTA Syringe ONE (12:00)
[2017-11-04] MEDS ORDERED: Acetaminophen/HYDROcodone 325-5 MG Tab ONE (12:00)
[2017-11-04] MEDS ORDERED: Pantoprazole 40 MG Delayed-Release Granules 1 Packet ONE (12:00)
[2017-11-04] MEDS ORDERED: Acetaminophen 500 MG Tab PO PRN (21:12)
[2017-11-04] MEDS ORDERED: Sodium Chloride 0.9% 1,000 ML IV SCH (22:00)
[2017-11-05] MEDS: Albuterol 8 GM Inhaler INH SCH ×5 (03:59→23:16)
[2017-11-05] MEDS: Pantoprazole 40 MG Tab.CR PO SCH (06:01)
[2017-11-05] MEDS: Nicotine 7 MG/24 Hr Patch TRDERM SCH (07:50)
[2017-11-05] MEDS: Sulfamethoxazole/Trimethoprim 800-160 MG Tab PO SCH (07:51)
[2017-11-05] MEDS: Lactobacillus Acidophilus/Lactobacillus Sporogenes (Probiotic) Tab PO SCH (11:39)
[2017-11-05] MEDS: Digoxin 125 MCG Tab PO SCH (11:39)
[2017-11-05] MEDS ORDERED: LORazepam 0.5 MG Tab PO ONE (11:40)
[2017-11-05] MEDS ORDERED: Sodium Chloride 0.9% 1,000 ML IV SCH (13:30)
--- NOTE | 2017-11-05 14:14 | PCM.PN ---
- General Info Date of Service: 11/05/17 Admission Dx/Problem (Free Text): cellulitis: Functional Status: Reports: Pain Controlled, Incentive Spirometry - Review of Systems General: Denies: Appetite HEENT: Reports: No Symptoms Pulmonary: Reports: No Symptoms Cardiovascular: Reports: No Symptoms Gastrointestinal: Reports: No Symptoms Genitourinary: Reports: No Symptoms Musculoskeletal: Reports: Foot Pain (wound to right foot) Skin: Reports: Other (decubitus right outer foot) Neurological: Reports: Confusion - Patient Data Vitals - Most Recent: Last Vital Signs Temp 97.4 F 11/04/17 20:00 Pulse 69 11/05/17 11:39 Resp 16 11/04/17 20:00 BP 82/53 L 11/04/17 20:00 Pulse Ox 98 11/04/17 20:00 Weight - Most Recent: 132 lb 12.798 oz I&O - Last 24 Hours: Intake & Output 11/04/17 11/05/17 11/05/17 22:59 06:59 14:59 Intake Total 575 Balance 575 Lab Results Last 24 Hours: Laboratory Results - last 24 hr 11/04/17 11/04/17 11/05/17 Range/Units 14:16 19:37 07:30 Sodium 137 (136-145) mmol/L Potassium 5.2 H (3.5-5.1) mmol/L Chloride 101 (98-107) mmol/L Carbon Dioxide 25.5 (21.0-32.0) mmol/L Anion Gap 15.7 H (5.0-15.0) mmol/L BUN 30 H (8-26) mg/dL Creatinine 3.68 H* (0.55-1.02) mg/dL Est Cr Clr Drug Dosing 11.79 mL/min Estimated GFR (MDRD) 12 L (>60) MLS/MIN BUN/Creatinine Ratio 8.2 (6-25) Glucose 95 (74-100) mg/dL POC Glucose 100 (74-110) mg/dL Calcium 9.0 (8.5-10.1) mg/dL Ammonia (11-32) umol/L B-Natriuretic Peptide 20735 H D (0-450) pg/mL 11/05/17 11/05/17 Range/Units 07:50 07:50 Sodium 136 (136-145) mmol/L Potassium 5.3 H (3.5-5.1) mmol/L Chloride 100 (98-107) mmol/L Carbon Dioxide 24.7 (21.0-32.0) mmol/L Anion Gap 16.6 H (5.0-15.0) mmol/L BUN 30 H (8-26) mg/dL Creatinine 3.65 H* (0.55-1.02) mg/dL Est Cr Clr Drug Dosing 11.89 mL/min Estimated GFR (MDRD) 12 L (>60) MLS/MIN BUN/Creatinine Ratio 8.2 (6-25) Glucose 86 (74-100) mg/dL POC Glucose (74-110) mg/dL Calcium 9.0 (8.5-10.1) mg/dL Ammonia < 10 L (11-32) umol/L B-Natriuretic Peptide (0-450) pg/mL Med Orders - Current: Current Medications Acetaminophen (Tylenol Extra Strength) 500 - 1,000 mg PO Q6H PRN PRN Reason: Pain Albuterol (Ventolin Hfa) 0 gm INH Q6H [facility] Last Admin: 11/05/17 11:39 Dose: 2 puff Digoxin (Lanoxin) 125 mcg PO DAILY [facility] Last Admin: 11/05/17 11:39 Dose: Not Given Sodium Chloride (Normal Saline) 1,000 mls @ 75 mls/hr IV ASDIRECTED JIMMIE Sodium Chloride (Normal Saline) 500 mls @ 250 mls/hr IV ASDIRECTED [facility] Lactobacillus Acidophilus (Acidolphilus Extra Strength) 1 tab PO DAILY@1200 [facility] Last Admin: 11/05/17 11:39 Dose: 1 tab Nicotine (Habitrol) 7 mg TRDERM DAILY [facility] Last Admin: 11/05/17 07:50 Dose: 7 mg Ranitidine HCl (Zantac) 150 mg PO BID [facility] Last Admin: 11/05/17 12:14 Dose: 150 mg Trimethoprim/Sulfamethoxazole (Septra Ds) 1 tab PO DAILY [facility] Last Admin: 11/05/17 07:51 Dose: 1 tab Warfarin Sodium (Coumadin) 1 mg PO DAILY@1800 [facility] Last Admin: 11/04/17 17:54 Dose: 1 mg Discontinued Medications Hydrocodone Bitart/Acetaminophen ([place] 325-5 Mg) 1 tab PO Q4H PRN PRN Reason: Pain (moderate 4-6) Last Admin: 11/03/17 20:26 Dose: 1 tab Sodium Chloride (Normal Saline) 1,000 mls @ 75 mls/hr IV ASDIRECTED [facility] Stop: 11/05/17 11:19 Last Admin: 11/04/17 22:09 Dose: 75 mls/hr Lorazepam (Ativan) 0.25 mg PO ONETIME ONE Stop: 11/05/17 11:41 Last Admin: 11/05/17 12:14 Dose: 0.25 mg Metformin HCl (Glucophage) 250 mg PO BIDMEALS [facility] Last Admin: 11/03/17 08:40 Dose: Not Given Pantoprazole Sodium (Protonix) 40 mg PO BIDAC [facility] Last Admin: 11/05/17 06:01 Dose: 40 mg Sodium Chloride (Saline Flush) 10 ml FLUSH ASDIRECTED PRN PRN Reason: Keep Vein Open Trimethoprim/Sulfamethoxazole (Septra Ds) 1 tab PO BID [facility] Stop: 11/06/17 23:59 Last Admin: 11/03/17 08:42 Dose: 1 tab Tuberculin PPD (Aplisol) 5 unit IDERM ONETIME ONE Stop: 10/31/17 14:41 Last Admin: 10/31/17 20:22 Dose: 5 unit - Exam Quality Assessment: Supplemental Oxygen (at hs) General: Alert, Cooperative, No Acute Distress HEENT: Mucous Membr. Moist/[place] Neck: Supple Lungs: Normal Respiratory Effort, Decreased Breath Sounds Cardiovascular: Regular Rate, Irregular Rhythm GI/Abdominal Exam: Normal Bowel Sounds, Soft, Non-Tender Extremities: Normal Capillary Refill, Pedal Edema. No: Joint Swelling, Leg Pain , Increased Warmth Peripheral Pulses: 2+: Dorsalis Pedis (L), Dorsalis Pedis (R) Skin: Warm, Dry Wound/Incisions: Healing Well, Erythema Improving (Minimal erythema to lower right foot around wound) Neurological: Strength Equal Bilateral Psy/Mental Status: Alert, Normal Mood - Problem List & Annotations (1) Cellulitis SNOMED Code(s): 151048738 Code(s): L03.90 - CELLULITIS, UNSPECIFIED Status: Acute Priority: Medium Current Visit: No Onset Date: ~10/31/17 Qualifiers: (2) Acute kidney failure SNOMED Code(s): 28551830 Code(s): N17.9 - ACUTE KIDNEY FAILURE, UNSPECIFIED Status: Acute Current Visit: Yes - Problem List Review Problem List Initiated/Reviewed/Updated: Yes - My Orders Last 24 Hours: My Active Orders 11/04/17 21:12 Acetaminophen [Tylenol Extra Strength] 500 - 1,000 mg PO Q6H PRN 11/05/17 08:00 Ranitidine [Zantac] 150 mg PO BID 11/05/17 13:20 UA W/MICROSCOPIC [URIN] Stat 11/05/17 13:30 Sodium Chloride 0.9% @ 75 MLS/HR(1000ml) Sodium Chloride 0.9% [Normal Saline] 1 ,000 ml IV ASDIRECTED 11/05/17 14:06 Urinary Catheter Assessment [RC] ASDIRECTED 11/05/17 14:15 Alva Catheter Insertion [Insert Urinary Catheter] [OM.PC] Q24H Sodium Chloride 0.9% [Normal Saline] 500 ml IV ASDIRECTED 11/06/17 07:30 CBC WITH AUTO DIFF [HEME] Routine COMPREHENSIVE METABOLIC PN,CMP [CHEM] Routine - Assessment Assessment:: Cellulitis: MRSA + with decubitus wound Acute kidney failure: Weakness: - Plan Plan:: Cellulitis: MRSA + with decubitus wound PT daily dressing change and wound assessment Bactrim DS as ordered. Acute kidney failure: Fluid bolus 500cc Nacl Alva catheter, accurate I/O Labs as ordered Hold Digoxin Weakness: PT/OT for strengthening and exercise Pt has developed sudden onset of confusion last night and today. Consult with pharmacist and Dr Phillips. Creatinine and potassium has been elevated. Will hold Digoxin. Vancomycin has been d'cd and Metformin has been d'cd. IV fluid bolus 500 cc Nacl today with alva catheter. Monitor output. Pt does have a history of nicotine addiction and some daily alcohol use. Will assess CIWAA score and start nicoderm patch. Narcotics are on hold. MRI has been completed to right foot and cellulitis noted, no abscess and no osteomyelitis noted.
[2017-11-05] MEDS ORDERED: Sodium Chloride 0.9% 500 ML IV SCH (14:45)
[2017-11-05] MEDS ORDERED: Acetaminophen 500 MG Tab PO PRN (18:01)
[2017-11-05] MEDS ORDERED: Haloperidol Lactate 5 MG/ML SDV IM ONE (21:44)
--- NOTE | 2017-11-05 22:10 | CONS ---
DATE OF CONSULTATION: 11/05/2017 CHIEF COMPLAINT: I am asked to see the patient by Ana Fermin regarding elevated creatinine. PAST MEDICAL HISTORY: 1. Chronic obstructive pulmonary disease. 2. Atrial fibrillation on anticoagulation. 3. Diabetes mellitus type 2. 4. Gout. 5. History of diastolic heart failure. 6. Hypertension. 7. Hyperlipidemia. HISTORY OF PRESENT ILLNESS: This pleasant 77-year-old female, who I am asked to see by Dr. Ana Fermin for elevated creatinine and cellulitis. In reviewing the records, the patient was admitted to the hospital on October 27 with cellulitis of the right ankle. She was seen on and was started on Augmentin for the cellulitis. Renal function checked at that time was normal. She then was hospitalized, did have an MRSA swab which did show MRSA and was previously on Zosyn was switched to vancomycin. She was started on 1 g q.12 hours. She also is getting indomethacin for her gout attack that she was taking actually at home prior to admission also. The patient was doing well, did have an MRI of the ankle without contrast, it did not show any osteomyelitis. With the vancomycin trough level was checked 36 hours after starting the medication, it came back at 37. Creatinine was checked on 10/30/2017, and it was 1.19 and then the next creatinine checked was 11/03/2017, and it was 3.32 and it peaked at 3.68 on 11/04/2017. Potassium has been at 5.3. The patient normally does have low blood pressure usually less than 100 systolic according the patient's . Blood pressure had been getting down in the 60s, and the patient did complain of some dizziness upon sitting up or standing. She has not been eating or drinking well. Did have a diarrheal illness with the Augmentin which is most likely a side effect but this stopped after stopping the medication. The patient now feels "okay." Mild nausea but no vomiting. No diarrhea. Urinalysis was done today which revealed no protein. CURRENT MEDICATIONS: Tylenol, albuterol, lactobacillus, nicotine, ranitidine 150 b.i.d., Septra DS 1 tab p.o. daily, and Coumadin 1 mg daily. FAMILY HISTORY: Really noncontributory. SOCIAL HISTORY: She is . She is a smoker. She states she has 1-2 drinks a day. REVIEW OF SYSTEMS: A 12-point review of systems is negative other than above. PHYSICAL EXAMINATION: GENERAL: A pleasant female, in no apparent distress. Lying in bed. present in the room along with nursing. VITAL SIGNS: Blood pressure is 82/53, pulse is 56, temp is 97.4, O2 sats are 98% on 2 L nasal cannula. The patient is alert. She is oriented to person, place. She told me it was July but correct number, date, and year. Knows the president. She follows commands. HEENT: Exam is negative. She does have a rather cyanotic nose. There is no adenopathy or thyromegaly. CHEST: Reveals decreased breath sounds bilaterally but I did not hear any rales or rhonchi. No wheezing. CARDIAC: Exam reveals a regular rate and rhythm but I do not hear any gallop or rub. ABDOMEN: Benign. LOWER EXTREMITY: The right lateral heel area has a grade 2 ulcer. I do not see any bone or tendon exposed. Good granulation tissue. There is no erythema or drainage. Dorsal pedis pulse is palpated but decreased capillary refill is okay in the toes. LABORATORY DATA: Sodium 136, potassium 5.3, chloride 100, bicarb 24.7, BUN 30, creatinine 3.65, glucose 86, calcium 9.0, lactic acid was 0.9. Ammonia was less than 10. BNP was 57209. Most recent CBC revealed a white count of 7.6, hemoglobin 11.4, platelet count of 220,000. INR on 11/03/2017 was 2.9. MRI did not show any evidence of osteomyelitis, tendons were intact. This was done without contrast. IMPRESSION: 1. Acute renal failure, non-oliguric. Acute renal failure is related to a combination of vancomycin toxicity and also nonsteroidal and also meant from some mild dehydration or prerenal factors. Small catheter has been placed. She has had good urine output. I gave her 500 mL bolus of fluid and urine output is good. Vancomycin has been stopped along with nonsteroidals. Renal dosing of all of her medications. She will be placed on renal diet, and we will recheck creatinine in the morning. It appears that her creatinine may have plateaued, and hopefully will start to decline soon. 2. Cellulitis with ulceration. Plan; this actually looks quite good. Culture did show MRSA but I think at this time placing on the Septra certainly is reasonable. She is not septic. 3. Mild confusion. The patient was getting Ativan and narcotics prior to this but this has all been stopped which I agree. The patient has been in the hospital since 11, so I do not feel that this is withdrawal from alcohol. With stopping the above medications, I would follow her mental status. Of note, on examination there is no asterixis. 4. Chronic obstructive pulmonary disease. This currently appears to be stable. We would continue to follow. 5. Elevated BNP. On examination, the patient does not have any evidence of heart failure. I think this is probably elevated due to her renal failure. We will watch her fluid status closely. 6. Atrial fibrillation on anticoagulation. Heart rate is currently controlled. We will hold her digoxin because of her renal failure. Check an INR in the morning since she is on Septra. 7. Diabetes mellitus. The patient states she has not been taking her metformin at home but was started here in the hospital. We will stop that due to her renal failure. Monitor blood sugars. Thank you very much for this interesting consultation. We will follow her with you during her hospital course. RACHEL /[id number]
[2017-11-05] MEDS ORDERED: MVI, Adult with Vitamin K 10 ML, Thiamine 100 MG, Folic Acid 1 MG, Magnesium Sulfate 3 ... IV SCH ×5 (22:30)
[2017-11-06] MEDS: Albuterol 8 GM Inhaler INH SCH ×3 (05:30→17:05)
[2017-11-06] MEDS ORDERED: Cosyntropin 0.25 MG Vial IV ONE (08:26)
[2017-11-06] MEDS: Sulfamethoxazole/Trimethoprim 800-160 MG Tab PO SCH (09:10)
--- NOTE | 2017-11-06 09:23 | PN ---
DATE OF VISIT: 11/06/2017 SUBJECTIVE: The patient had a restless night by reading nursing notes. Apparently, became quite delirious pulled her IV out and had some hallucinations. The patient this morning was lying in bed, I awakened her on entering and she is alert, denies any pain. She states her ankle is feeling better. She has not had any nausea or vomiting. No diarrhea, abdominal pain. She denies any shortness of breath, chest pain. She denies any dizziness or lightheadedness. Appetite is still poor but thinks that she could eat something this morning. OBJECTIVE: The patient awakened on my entering the room. She was alert. She is oriented to person, originally stated that she was in her bed at home but then corrected herself saying in the hospital, knew the date and year. Blood pressure 83/51 with a pulse of 73, O2 sats 98% with a temp 97.6. Her lungs reveal decreased breath sounds bilaterally but I did not hear any wheezes or rales. Cardiac exam reveals an irregularly irregular rhythm at 70. I do not hear any gallop or rub. JVD is at about 8 cm. There is no pedal edema. Good capillary refill in toes. I do not hear any bruit on either subclavian artery. Abdomen is benign. Her right ankle is dressed and I did not remove this is morning but again good capillary refill in the toes. Urine is bloody in nature and question whether or not she has had some mild trauma with her delirium last night. Yesterday's urinalysis was negative. LABORATORY DATA: White count is 5.8, hemoglobin 10.8, platelet count 225. INR is elevated at 6.7. Sodium is 137, potassium 5.0. BUN is 30 and creatinine is 3.5, this is down from 3.6 yesterday. IMPRESSION: 1. Acute renal failure. I suspect that this is secondary to vancomycin, which was held and also nonsteroidals. The patient's creatinine has improved since yesterday, would continue to follow. Urine output has been good. No potassium problems and patient is not having any uremic symptoms. 2. Hypotension. In reviewing her chart, from the clinic, she has been hypotensive relatively dating back to 2016 and 2013. Systolic pressures have been in the 80s while in the hospital. I do not see evidence of any peripheral vascular disease. Although her blood pressure is relatively low, her urine output is good and she is mentating. Heart rate is improving, question whether or not the patient could be addisonian although in reviewing her lab work previously there was no evidence of hyperkalemia or hyponatremia or alkalosis. Since this has been a long-standing problem, we will do a cosyntropin stim test to ensure that this is normal and if this is normal would follow. 3. Cellulitis with ulceration. No evidence of osteomyelitis by MRI, would continue with the sulfa currently but her ulcer actually is looking quite good. 4. Delirium. Plan, I think this is most likely related to her renal failure and would hold all narcotics and benzodiazepines currently, would continue to follow. 5. Chronic obstructive lung disease, currently stable, would follow. 6. Elevated BNP, originally thought that this is related to her renal failure but her reviewing old records, back in 2015, the patient had a BNP that was elevated at 1404. I suspect that she has some chronic right-sided failure due to her chronic obstructive pulmonary disease although the patient denies any chronic lower extremity edema. For right now, would follow. 7. Atrial fibrillation. On anticoagulation, INR is elevated this morning. We will hold her Coumadin. There was no bleeding so do not feel that we need to reverse this currently. The patient is very sensitive to Coumadin due to her poor caloric intake and also digoxin use and Septra use. 8. Diabetes mellitus. Continue to monitor sugars. JEANNETTE/JORGE /[id number]
[2017-11-06] MEDS ORDERED: Cosyntropin 0.25 MG Vial IV SCH (09:52)
--- NOTE | 2017-11-06 10:16 | PCM.PN ---
- General Info Date of Service: 11/06/17 Admission Dx/Problem (Free Text): cellulitis: Subjective Update: States her leg is feeling better and much less pain. States confusion during night, improved this am. with patient and states pt isn't confused like this at home. States her BP has been low. States she did have an echo done in the past, she was scheduled for surgery and physician cancelled and told pt and that surgery would not be indicated and would cause more demise for her. Functional Status: Reports: Pain Controlled, Tolerating Diet, Urinating - Review of Systems General: Reports: No Symptoms HEENT: Reports: No Symptoms Pulmonary: Reports: Other (using oxygen most of time, states more comfortable with it on). Denies: Shortness of Breath Cardiovascular: Reports: No Symptoms Gastrointestinal: Reports: Decreased Appetite ( states little appetite at home), Other (States abdomen feels good today and no pain.) Genitourinary: Reports: Other (alva catheter) Musculoskeletal: Reports: Foot Pain (pain improved to right foot) Neurological: Reports: Confusion, Weakness. Denies: Dizziness, Headache - Patient Data Vitals - Most Recent: Last Vital Signs Temp 97.6 F 11/06/17 03:30 Pulse 73 11/06/17 03:30 Resp 22 H 11/06/17 03:30 BP 83/51 L 11/06/17 03:30 Pulse Ox 98 11/06/17 03:30 Weight - Most Recent: 132 lb 12.798 oz I&O - Last 24 Hours: Intake & Output 11/05/17 11/06/17 11/06/17 22:59 06:59 14:59 Intake Total 725 650 Output Total 475 Balance 725 175 Lab Results Last 24 Hours: Laboratory Results - last 24 hr 11/05/17 11/05/17 11/05/17 Range/Units 07:30 15:05 16:24 WBC (4.0-11.0) K/uL RBC (3.80-5.80) M/uL Hgb (11.5-16.5) g/dL Hct (37.0-47.0) % MCV (76-96) fL MCH (27.0-32.0) pg MCHC (31.0-35.0) g/dL RDW (11.0-16.0) % Plt Count (150-500) K/uL MPV (6.0-10.0) fL Neut % (Auto) (45.0-70.0) % Lymph % (Auto) (20.0-40.0) % [place] % (Auto) (3.0-10.0) % Eos % (Auto) (1.0-5.0) % Baso % (Auto) (0.0-0.5) % Neut # (Auto) (2.00-7.50) K/uL Lymph # (Auto) (1.50-4.00) K/uL [place] # (Auto) (0.20-0.80) K/uL Eos # (Auto) (0.04-0.40) K/uL Baso # (Auto) (0.02-0.10) K/uL PT (9.0-11.5) sec INR (1.0-3.5) Sodium (136-145) mmol/L Potassium (3.5-5.1) mmol/L Chloride (98-107) mmol/L Carbon Dioxide (21.0-32.0) mmol/L Anion Gap (5.0-15.0) mmol/L BUN (8-26) mg/dL Creatinine (0.55-1.02) mg/dL Est Cr Clr Drug Dosing mL/min Estimated GFR (MDRD) (>60) MLS/MIN BUN/Creatinine Ratio (6-25) Glucose (74-100) mg/dL POC Glucose (74-110) mg/dL Lactic Acid 0.95 (0.90-1.70) mmol/L Calcium (8.5-10.1) mg/dL Total Bilirubin (0.0-1.0) mg/dL AST (15-37) U/L ALT (12-78) U/L Alkaline Phosphatase (46-116) U/L B-Natriuretic Peptide 12914 H D (0-450) pg/mL Total Protein (6.4-8.2) g/dL Albumin (3.4-5.0) g/dL Globulin (2.2-4.2) g/dL Albumin/Globulin Ratio (0.8-2.0) Urine Color Yellow Urine Appearance Clear (CLEAR) Urine pH 5.0 (5.0-8.0) Ur Specific [place] 1.015 (1.003-1.030) Urine Protein Negative (NEGATIVE) mg/dL Urine Glucose (UA) Negative (NEGATIVE) mg/dL Urine Ketones Negative (NEGATIVE) mg/dL Urine Occult Blood Trace-lysed H (NEGATIVE) Urine Nitrite Negative (NEGATIVE) Urine Bilirubin Negative (NEGATIVE) Urine Urobilinogen 0.2 (0.2-1.0) E.U./dL Ur Leukocyte Esterase Negative (NEGATIVE) Urine RBC Not seen /HPF Urine WBC Not seen /HPF Ur Squamous Epith Cells Few /HPF Amorphous Sediment Few /HPF 11/06/17 11/06/17 11/06/17 Range/Units 07:15 07:15 07:15 WBC 5.8 D (4.0-11.0) K/uL RBC 3.21 L (3.80-5.80) M/uL Hgb 10.8 L (11.5-16.5) g/dL Hct 31.8 L (37.0-47.0) % MCV 99 H (76-96) fL MCH 33.6 H (27.0-32.0) pg MCHC 34.0 (31.0-35.0) g/dL RDW 12.4 (11.0-16.0) % Plt Count 225 (150-500) K/uL MPV 11.6 H (6.0-10.0) fL Neut % (Auto) 70.8 H (45.0-70.0) % Lymph % (Auto) 16.8 L (20.0-40.0) % [place] % (Auto) 11.6 H (3.0-10.0) % Eos % (Auto) 0.3 L (1.0-5.0) % Baso % (Auto) 0.5 (0.0-0.5) % Neut # (Auto) 4.10 (2.00-7.50) K/uL Lymph # (Auto) 0.97 L (1.50-4.00) K/uL [place] # (Auto) 0.67 (0.20-0.80) K/uL Eos # (Auto) 0.02 L (0.04-0.40) K/uL Baso # (Auto) 0.03 (0.02-0.10) K/uL PT 62.2 H D (9.0-11.5) sec INR 6.7 H* D (1.0-3.5) Sodium 137 (136-145) mmol/L Potassium 5.0 (3.5-5.1) mmol/L Chloride 104 (98-107) mmol/L Carbon Dioxide 24.5 (21.0-32.0) mmol/L Anion Gap 13.5 (5.0-15.0) mmol/L BUN 30 H (8-26) mg/dL Creatinine 3.52 H* (0.55-1.02) mg/dL Est Cr Clr Drug Dosing 12.33 mL/min Estimated GFR (MDRD) 13 L (>60) MLS/MIN BUN/Creatinine Ratio 8.5 (6-25) Glucose 91 (74-100) mg/dL POC Glucose (74-110) mg/dL Lactic Acid (0.90-1.70) mmol/L Calcium 8.5 (8.5-10.1) mg/dL Total Bilirubin 0.4 D (0.0-1.0) mg/dL AST 34 (15-37) U/L ALT 15 (12-78) U/L Alkaline Phosphatase 84 (46-116) U/L B-Natriuretic Peptide (0-450) pg/mL Total Protein 6.6 (6.4-8.2) g/dL Albumin 2.3 L (3.4-5.0) g/dL Globulin 4.3 H (2.2-4.2) g/dL Albumin/Globulin Ratio 0.5 L (0.8-2.0) Urine Color Urine Appearance (CLEAR) Urine pH (5.0-8.0) Ur Specific [place] (1.003-1.030) Urine Protein (NEGATIVE) mg/dL Urine Glucose (UA) (NEGATIVE) mg/dL Urine Ketones (NEGATIVE) mg/dL Urine Occult Blood (NEGATIVE) Urine Nitrite (NEGATIVE) Urine Bilirubin (NEGATIVE) Urine Urobilinogen (0.2-1.0) E.U./dL Ur Leukocyte Esterase (NEGATIVE) Urine RBC /HPF Urine WBC /HPF Ur Squamous Epith Cells /HPF Amorphous Sediment /HPF 11/06/17 Range/Units 08:16 WBC (4.0-11.0) K/uL RBC (3.80-5.80) M/uL Hgb (11.5-16.5) g/dL Hct (37.0-47.0) % MCV (76-96) fL MCH (27.0-32.0) pg MCHC (31.0-35.0) g/dL RDW (11.0-16.0) % Plt Count (150-500) K/uL MPV (6.0-10.0) fL Neut % (Auto) (45.0-70.0) % Lymph % (Auto) (20.0-40.0) % [place] % (Auto) (3.0-10.0) % Eos % (Auto) (1.0-5.0) % Baso % (Auto) (0.0-0.5) % Neut # (Auto) (2.00-7.50) K/uL Lymph # (Auto) (1.50-4.00) K/uL [place] # (Auto) (0.20-0.80) K/uL Eos # (Auto) (0.04-0.40) K/uL Baso # (Auto) (0.02-0.10) K/uL PT (9.0-11.5) sec INR (1.0-3.5) Sodium (136-145) mmol/L Potassium (3.5-5.1) mmol/L Chloride (98-107) mmol/L Carbon Dioxide (21.0-32.0) mmol/L Anion Gap (5.0-15.0) mmol/L BUN (8-26) mg/dL Creatinine (0.55-1.02) mg/dL Est Cr Clr Drug Dosing mL/min Estimated GFR (MDRD) (>60) MLS/MIN BUN/Creatinine Ratio (6-25) Glucose (74-100) mg/dL POC Glucose 79 (74-110) mg/dL Lactic Acid (0.90-1.70) mmol/L Calcium (8.5-10.1) mg/dL Total Bilirubin (0.0-1.0) mg/dL AST (15-37) U/L ALT (12-78) U/L Alkaline Phosphatase (46-116) U/L B-Natriuretic Peptide (0-450) pg/mL Total Protein (6.4-8.2) g/dL Albumin (3.4-5.0) g/dL Globulin (2.2-4.2) g/dL Albumin/Globulin Ratio (0.8-2.0) Urine Color Urine Appearance (CLEAR) Urine pH (5.0-8.0) Ur Specific [place] (1.003-1.030) Urine Protein (NEGATIVE) mg/dL Urine Glucose (UA) (NEGATIVE) mg/dL Urine Ketones (NEGATIVE) mg/dL Urine Occult Blood (NEGATIVE) Urine Nitrite (NEGATIVE) Urine Bilirubin (NEGATIVE) Urine Urobilinogen (0.2-1.0) E.U./dL Ur Leukocyte Esterase (NEGATIVE) Urine RBC /HPF Urine WBC /HPF Ur Squamous Epith Cells /HPF Amorphous Sediment /HPF Med Orders - Current: Current Medications Acetaminophen (Tylenol Extra Strength) 1,000 mg PO Q8H PRN PRN Reason: Pain Albuterol (Ventolin Hfa) 0 gm INH Q6H [facility] Last Admin: 11/06/17 05:30 Dose: 2 puff Cosyntropin (Cortrosyn) 0.25 mg IV ASDIRECTED [facility] Stop: 11/06/17 11:00 Digoxin (Lanoxin) 125 mcg PO DAILY [facility] Last Admin: 11/05/17 11:39 Dose: Not Given Sodium Chloride (Normal Saline) 1,000 mls @ 75 mls/hr IV ASDIRECTED [facility] Multivitamins/Minerals 10 ml/Thiamine HCl 100 mg/ Folic Acid 1 mg/ Magnesium Sulfate 3 gm/ Sodium Chloride 1,017.2 mls @ 75 mls/hr IV ASDIRECTED [facility] Last Admin: 11/05/17 23:05 Dose: 75 mls/hr Lactobacillus Acidophilus (Acidolphilus Extra Strength) 1 tab PO DAILY@1200 [facility] Last Admin: 11/05/17 11:39 Dose: 1 tab Ranitidine HCl (Zantac) 150 mg PO BID [facility] Last Admin: 11/06/17 09:10 Dose: 150 mg Trimethoprim/Sulfamethoxazole (Septra Ds) 1 tab PO DAILY [facility] Last Admin: 11/06/17 09:10 Dose: 1 tab Discontinued Medications Acetaminophen (Tylenol Extra Strength) 500 - 1,000 mg PO Q6H PRN PRN Reason: Pain Hydrocodone Bitart/Acetaminophen ([place] 325-5 Mg) 1 tab PO Q4H PRN PRN Reason: Pain (moderate 4-6) Last Admin: 11/03/17 20:26 Dose: 1 tab Cosyntropin (Cortrosyn) 0.25 mg IV ONETIME ONE Stop: 11/06/17 08:27 Haloperidol Lactate (Haldol) 5 mg IM ONETIME ONE Stop: 11/05/17 21:45 Last Admin: 11/05/17 21:51 Dose: 5 mg Sodium Chloride (Normal Saline) 1,000 mls @ 75 mls/hr IV ASDIRECTED [facility] Stop: 11/05/17 11:19 Last Admin: 11/04/17 22:09 Dose: 75 mls/hr Sodium Chloride (Normal Saline) 500 mls @ 250 mls/hr IV ASDIRECTED [facility] Stop: 11/05/17 23:59 Lorazepam (Ativan) 0.25 mg PO ONETIME ONE Stop: 11/05/17 11:41 Last Admin: 11/05/17 12:14 Dose: 0.25 mg Metformin HCl (Glucophage) 250 mg PO BIDMEALS [facility] Last Admin: 11/03/17 08:40 Dose: Not Given Nicotine (Habitrol) 7 mg TRDERM DAILY [facility] Last Admin: 11/05/17 07:50 Dose: 7 mg Pantoprazole Sodium (Protonix) 40 mg PO BIDAC [facility] Last Admin: 11/05/17 06:01 Dose: 40 mg Sodium Chloride (Saline Flush) 10 ml FLUSH ASDIRECTED PRN PRN Reason: Keep Vein Open Trimethoprim/Sulfamethoxazole (Septra Ds) 1 tab PO BID [facility] Stop: 11/06/17 23:59 Last Admin: 11/03/17 08:42 Dose: 1 tab Tuberculin PPD (Aplisol) 5 unit IDERM ONETIME ONE Stop: 10/31/17 14:41 Last Admin: 10/31/17 20:22 Dose: 5 unit Warfarin Sodium (Coumadin) 1 mg PO DAILY@1800 [facility] Last Admin: 11/05/17 18:10 Dose: 1 mg - Exam Quality Assessment: Supplemental Oxygen, Urine Catheter General: Alert, Cooperative, Other (Disoriented over night, alert and more talkative while is here.) HEENT: Mucous Membr. Moist/[place] Neck: Supple Lungs: Normal Respiratory Effort, Decreased Breath Sounds (Decreased breath sound to right lower lobe) Cardiovascular: Regular Rate, Irregular Rhythm, Other (hypotension) GI/Abdominal Exam: Soft, Non-Tender Back Exam: Normal Inspection Extremities: Normal Range of Motion, No Pedal Edema, Normal Capillary Refill Skin: Warm, Dry Wound/Incisions: Dressing Dry and Intact, Other (erythema resolved,yellow exudate to wound this am, wet to dry dressing applied while waiting for PT visit for wound care.) Neurological: Normal Speech, Strength Equal Bilateral Psy/Mental Status: Alert, Other (quiet today.) - Problem List & Annotations (1) Cellulitis SNOMED Code(s): 483595726 Code(s): L03.90 - CELLULITIS, UNSPECIFIED Status: Acute Priority: Medium Current Visit: No Onset Date: ~10/31/17 Qualifiers: (2) Acute kidney failure SNOMED Code(s): 09917777 Code(s): N17.9 - ACUTE KIDNEY FAILURE, UNSPECIFIED Status: Acute Current Visit: Yes - Problem List Review Problem List Initiated/Reviewed/Updated: Yes - My Orders Last 24 Hours: My Active Orders 11/05/17 13:30 Sodium Chloride 0.9% [Normal Saline] 1,000 ml IV ASDIRECTED 11/05/17 14:06 Urinary Catheter Assessment [RC] ASDIRECTED 11/05/17 14:15 Alva Catheter Insertion [Insert Urinary Catheter] [OM.PC] Q24H 11/05/17 22:30 MVI, Adult with Vitamin K [Infuvite Adult] 10 ml Thiamine [Vitamin B-1] 100 mg Folic Acid 1 mg Magnesium Sulfate [Magnesium Sulfate 50%] 3 gm Sodium Chloride 0.9% [Normal Saline] 1,000 ml IV ASDIRECTED - Assessment Assessment:: Cellulitis: MRSA + with decubitus wound Acute kidney failure: Weakness: - Plan Plan:: Cellulitis: MRSA + with decubitus wound Yellow exudate noted to wound today. Discussed with PT. PT daily dressing change and wound assessment Start Santyl dose today for debridement per PT. Bactrim DS as ordered. Acute kidney failure: Creatinine slightly improved today. Fluid bolus 500cc Nacl X2 yesterday Alva catheter, accurate I/O Labs as ordered Hold Digoxin, No NSAIDS, no metformin, no vancomycin, no narcotics, and no benzodiazipines. Weakness: PT/OT for strengthening and exercise Confusion last night and improved today. Consult with Dr Phillips. Creatinine and potassium has been elevated. Will hold Digoxin. Vancomycin has been d'cd and Metformin has been d'cd. Continue with Alva catheter. Monitor output. Pt does have a history of nicotine addiction and some daily alcohol use. Banana bag with MVI given during night. Dr. Phillips will F/U with pt today at noon. States to continue with current plan of care today. May d'c IV fluids and encourage food and fluids today. Improvement noted with creatinine. Cosyntropin ordered today, results pending. Notified pt and that Dr Phillips will consult and discuss pt status at noon.
[2017-11-06] MEDS ORDERED: Collagenase Oint 30 GM Tube TOP ONE (10:35)
[2017-11-06] MEDS: Lactobacillus Acidophilus/Lactobacillus Sporogenes (Probiotic) Tab PO SCH (13:46)
[2017-11-07] MEDS: Albuterol 8 GM Inhaler INH SCH ×4 (07:36→23:00)
[2017-11-07] MEDS: Sulfamethoxazole/Trimethoprim 800-160 MG Tab PO SCH (08:17)
--- NOTE | 2017-11-07 12:09 | PN ---
DATE OF VISIT: 11/07/2017 SUBJECTIVE: The patient denies any complaints this morning. States she had a better night. She denies any pain in the ankle. No shortness of breath. Had a small bowel movement yesterday. Denies any bleeding diathesis. OBJECTIVE: GENERAL: A pleasant female in no apparent distress. VITAL SIGNS: Blood pressure is systolic in 80s, but asymptomatic. Afebrile. HEENT: Negative. There is no adenopathy or thyromegaly. CHEST: Decreased breath sounds bilaterally, but no wheezes or rales. CARDIAC: Irregularly irregular rhythm, but without gallop or rub. No pedal edema. Good capillary refill in the toes. JVD is at about 7 cm. ABDOMEN: Benign. NEURO: The patient is alert and oriented to person, place, and time. Speech is fluent. LABORATORY DATA: INR 4.8. BMP reveals a sodium of 138, potassium 5.0, chloride 104, bicarbonate 27, BUN 32, creatinine 3.3, glucose 101, calcium 8.7. IMPRESSION: 1. Acute renal failure. Creatinine is slowly improving. Urine output has been adequate. Will discontinue IV fluids, push oral fluids, and will also discontinue Small catheter. I anticipate this will take 5-7 days for her creatinine to return to normal. Stay away from any medications that would potentially cause any renal failure such as nonsteroidals. 2. Hypotension. The patient has had a long history of low blood pressures in the clinic. She also did have an elevated BNP in the past of 1400. 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 We did do a cosyntropin stim test yesterday, results are still pending. If this is normal, I suspect that her blood pressure is related to her lung disease and possible pulmonary hypertension. To confirm this, echocardiogram could be done, but I do not think that is going to change clinical management. We will have to be very careful with any type of diuretics. 3. Cellulitis with ulceration. Looking at the wound today, it looks much improved. It has been debrided. Continue with dressing changes. I agree with the sulfa orally. 4. Delirium. Last night was better than the night before and anticipate that this will continue to improve with her improving renal function. Hold all narcotics or benzodiazepines or antihistamines. 5. Chronic obstructive lung disease, stable. 6. Elevated BNP as above. 7. Atrial fibrillation, rate is currently controlled. Her digoxin is being held. INR has improved, but we will continue to hold Coumadin. We will check an INR in the morning. JEANNETTE/JORGE /[id number]
[2017-11-07] MEDS: Lactobacillus Acidophilus/Lactobacillus Sporogenes (Probiotic) Tab PO SCH (12:24)
[2017-11-08] MEDS: Albuterol 8 GM Inhaler INH SCH ×4 (07:31→22:37)
[2017-11-08] MEDS: Sulfamethoxazole/Trimethoprim 800-160 MG Tab PO SCH (07:31)
[2017-11-08] MEDS: Lactobacillus Acidophilus/Lactobacillus Sporogenes (Probiotic) Tab PO SCH (12:34)
--- NOTE | 2017-11-08 12:37 | PCM.PN ---
- General Info Date of Service: 11/08/17 Admission Dx/Problem (Free Text): cellulitis: Subjective Update: Feels good today, appetite some improved, would like to go home tomorrow. Functional Status: Reports: Tolerating Diet, Urinating - Review of Systems General: Reports: No Symptoms HEENT: Reports: No Symptoms, Glasses Pulmonary: Reports: No Symptoms Cardiovascular: Reports: No Symptoms Gastrointestinal: Reports: No Symptoms, Other (BM today) Genitourinary: Reports: No Symptoms, Other (Up to bathroom to void) Musculoskeletal: Reports: No Symptoms Skin: Reports: Other (Foot wound improving and less pain) Neurological: Reports: No Symptoms Psychiatric: Reports: Confusion, Other (Confusion increase at night, states she doesn't trust people at night.) - Patient Data Vitals - Most Recent: Last Vital Signs Temp 96.7 F 11/08/17 07:32 Pulse 53 L 11/08/17 07:32 Resp 20 11/08/17 07:32 BP 96/73 11/08/17 07:32 Pulse Ox 3 L 11/08/17 07:32 Weight - Most Recent: 132 lb 12.798 oz I&O - Last 24 Hours: Intake & Output 11/07/17 11/08/17 11/08/17 22:59 06:59 14:59 Intake Total 540 Output Total 300 Balance 240 Lab Results Last 24 Hours: Laboratory Results - last 24 hr 11/08/17 11/08/17 11/08/17 Range/Units 06:37 09:15 09:15 PT 41.8 H (9.0-11.5) sec INR 4.5 H* (1.0-3.5) Sodium 138 (136-145) mmol/L Potassium 5.0 (3.5-5.1) mmol/L Chloride 103 (98-107) mmol/L Carbon Dioxide 27.4 (21.0-32.0) mmol/L Anion Gap 12.6 (5.0-15.0) mmol/L BUN 33 H (8-26) mg/dL Creatinine 3.24 H* (0.55-1.02) mg/dL Est Cr Clr Drug Dosing 13.40 mL/min Estimated GFR (MDRD) 14 L (>60) MLS/MIN BUN/Creatinine Ratio 10.2 (6-25) Glucose 153 H D (74-100) mg/dL POC Glucose 119 H (74-110) mg/dL Calcium 9.1 (8.5-10.1) mg/dL Med Orders - Current: Current Medications Acetaminophen (Tylenol Extra Strength) 1,000 mg PO Q8H PRN PRN Reason: Pain Last Admin: 11/06/17 20:28 Dose: 1,000 mg Albuterol (Ventolin Hfa) 0 gm INH Q6H [facility] Last Admin: 11/08/17 07:31 Dose: Not Given Digoxin (Lanoxin) 125 mcg PO DAILY [facility] Last Admin: 11/05/17 11:39 Dose: Not Given Sodium Chloride (Normal Saline) 1,000 mls @ 75 mls/hr IV ASDIRECTED [facility] Multivitamins/Minerals 10 ml/Thiamine HCl 100 mg/ Folic Acid 1 mg/ Magnesium Sulfate 3 gm/ Sodium Chloride 1,017.2 mls @ 75 mls/hr IV ASDIRECTED [facility] Last Admin: 11/05/17 23:05 Dose: 75 mls/hr Lactobacillus Acidophilus (Acidolphilus Extra Strength) 1 tab PO DAILY@1200 [facility] Last Admin: 11/07/17 12:24 Dose: 1 tab Ranitidine HCl (Zantac) 150 mg PO BID [facility] Last Admin: 11/08/17 07:31 Dose: 150 mg Trimethoprim/Sulfamethoxazole (Septra Ds) 1 tab PO DAILY [facility] Last Admin: 11/08/17 07:31 Dose: 1 tab Discontinued Medications Acetaminophen (Tylenol Extra Strength) 500 - 1,000 mg PO Q6H PRN PRN Reason: Pain Hydrocodone Bitart/Acetaminophen ([place] 325-5 Mg) 1 tab PO Q4H PRN PRN Reason: Pain (moderate 4-6) Last Admin: 11/03/17 20:26 Dose: 1 tab Hydrocodone Bitart/Acetaminophen ([place] 325-5 Mg) 1 tab .ROUTE .STK-MED ONE Stop: 11/04/17 12:01 Collagenase (Santyl Oint) 0 gm TOP ONETIME ONE Stop: 11/06/17 10:36 Last Admin: 11/06/17 10:35 Dose: 1 applic Cosyntropin (Cortrosyn) 0.25 mg IV ONETIME ONE Stop: 11/06/17 08:27 Last Admin: 11/07/17 05:57 Dose: Not Given Cosyntropin (Cortrosyn) 0.25 mg IV ASDIRECTED [facility] Stop: 11/06/17 11:00 Last Admin: 11/06/17 10:16 Dose: 0.25 mg Digoxin (Lanoxin) 125 mcg .ROUTE .STK-MED ONE Stop: 11/04/17 12:01 Haloperidol Lactate (Haldol) 5 mg IM ONETIME ONE Stop: 11/05/17 21:45 Last Admin: 11/05/17 21:51 Dose: 5 mg Sodium Chloride (Normal Saline) 1,000 mls @ 75 mls/hr IV ASDIRECTED [facility] Stop: 11/05/17 11:19 Last Admin: 11/04/17 22:09 Dose: 75 mls/hr Sodium Chloride (Normal Saline) 500 mls @ 250 mls/hr IV ASDIRECTED [facility] Stop: 11/05/17 23:59 Lactobacillus Acidophilus (Acidolphilus Extra Strength) 1 tab .ROUTE .STK-MED ONE Stop: 11/04/17 12:01 Lidocaine (Lta 360 Kit Top Soln) 4 ml .ROUTE .STK-MED ONE Stop: 11/04/17 12:01 Lorazepam (Ativan) 0.25 mg PO ONETIME ONE Stop: 11/05/17 11:41 Last Admin: 11/05/17 12:14 Dose: 0.25 mg Metformin HCl (Glucophage) 250 mg PO BIDMEALS [facility] Last Admin: 11/03/17 08:40 Dose: Not Given Nicotine (Habitrol) 7 mg TRDERM DAILY [facility] Last Admin: 11/05/17 07:50 Dose: 7 mg Pantoprazole Sodium (Protonix) 40 mg PO BIDAC [facility] Last Admin: 11/05/17 06:01 Dose: 40 mg Pantoprazole Sodium (Protonix Granules) 40 mg .ROUTE .STK-MED ONE Stop: 11/04/17 12:01 Sodium Chloride (Saline Flush) 10 ml FLUSH ASDIRECTED PRN PRN Reason: Keep Vein Open Trimethoprim/Sulfamethoxazole (Septra Ds) 1 tab PO BID [facility] Stop: 11/06/17 23:59 Last Admin: 11/03/17 08:42 Dose: 1 tab Trimethoprim/Sulfamethoxazole (Septra Ds) 1 tab .ROUTE .STK-MED ONE Stop: 11/04/17 12:01 Tuberculin PPD (Aplisol) 5 unit IDERM ONETIME ONE Stop: 10/31/17 14:41 Last Admin: 10/31/17 20:22 Dose: 5 unit Warfarin Sodium (Coumadin) 1 mg PO DAILY@1800 [facility] Last Admin: 11/05/17 18:10 Dose: 1 mg - Exam Quality Assessment: Supplemental Oxygen. No: Urine Catheter General: Alert, Cooperative, No Acute Distress HEENT: Mucous Membr. Moist/[place] Neck: Supple. No: Lymphadenopathy Lungs: Clear to Auscultation, Normal Respiratory Effort, Decreased Breath Sounds Cardiovascular: Regular Rate, Irregular Rhythm GI/Abdominal Exam: Normal Bowel Sounds, Soft, Non-Tender, Other (rotund) Extremities: Normal Range of Motion, No Pedal Edema, Normal Capillary Refill, Other (has a walker in the room). No: Joint Swelling, Increased Warmth Peripheral Pulses: 2+: Dorsalis Pedis (L), Dorsalis Pedis (R) Skin: Warm, Dry Wound/Incisions: Healing Well, Other (granulating tissue noted to base of wound and surrounding the wound, slough to distal and middle wound.). No: Erythema Neurological: Normal Speech, Strength Equal Bilateral Psy/Mental Status: Alert, Normal Affect, Normal Mood - Problem List & Annotations (1) Cellulitis SNOMED Code(s): 407033517 Code(s): L03.90 - CELLULITIS, UNSPECIFIED Status: Acute Priority: Medium Current Visit: No Onset Date: ~10/31/17 Qualifiers: Site of cellulitis: extremity Site of cellulitis of extremity: lower extremity Laterality: right Qualified Code(s): L03.115 - Cellulitis of right lower limb (2) Acute kidney failure SNOMED Code(s): 40174905 Code(s): N17.9 - ACUTE KIDNEY FAILURE, UNSPECIFIED Status: Acute Current Visit: Yes - Problem List Review Problem List Initiated/Reviewed/Updated: Yes - Assessment Assessment:: 11-08-17 Cellulitis: MRSA + with decubitus wound Acute kidney failure: Weakness: - Plan Plan:: 11-08-17 Cellulitis: MRSA + with decubitus wound Yellow exudate noted to wound today. KIM Chatterjee will be changing dressing daily with gentle debridement of slough as directed by PT. Daily dressing change and wound assessment Bactrim DS as ordered. Acute kidney failure: Creatinine slightly improved today 3.24 Electrolytes normal today BP improved 96/73 with SpO2=95% this am. Urine output 300 recorded with 3 voids, uncertain amount States BM today. Saline lock I/O, with hat to bathroom for urine output Labs as ordered Hold Digoxin, No NSAIDS, no metformin, no vancomycin, no narcotics, and no benzodiazipines. Weakness: PT/OT for strengthening and exercise Anticoagulant termite control servicer therapy: INR elevated, but improved to 4.5 today Confusion during night and improved in day. Improvement noted with creatinine. Cosyntropin results pending. Will assess BMP and INR in am, if continued improvement, pt may go home for the afternoon and return after supper. Pt would like to be home for [place], if possible. Daily dressing change in am before visit to home.
[2017-11-09] MEDS: Albuterol 8 GM Inhaler INH SCH (05:16)
[2017-11-09] MEDS: Sulfamethoxazole/Trimethoprim 800-160 MG Tab PO SCH (07:30)
--- NOTE | 2017-11-09 09:28 | PCM.DCSUM1 ---
Discharge Summary - Discharge Data Discharge Date: 11/09/17 Discharge Disposition: Home, Self-Care 01 Condition: Stable - Discharge Diagnosis/Problem(s) (1) Acute kidney failure SNOMED Code(s): 69882005 ICD Code: N17.9 - ACUTE KIDNEY FAILURE, UNSPECIFIED Status: Acute Priority: High Current Visit: Yes (2) Cellulitis SNOMED Code(s): 860260921 ICD Code: L03.90 - CELLULITIS, UNSPECIFIED Status: Acute Priority: High Current Visit: Yes Onset Date: ~10/31/17 Qualifiers: Site of cellulitis: extremity Site of cellulitis of extremity: lower extremity Laterality: right Qualified Code(s): L03.115 - Cellulitis of right lower limb (3) Pressure ulcer of ankle, right, unstageable SNOMED Code(s): 994105253 ICD Code: L89.510 - PRESSURE ULCER OF RIGHT ANKLE, UNSTAGEABLE Status: Acute Priority: High Current Visit: Yes Onset Date: ~10/23/17 (4) MRSA (methicillin resistant staph aureus) culture positive SNOMED Code(s): 172503515 ICD Code: Z22.322 - CARRIER OR SUSPECTED CARRIER OF METHICILLIN RESIS STAPH Status: Acute Current Visit: Yes (5) MRSA cellulitis SNOMED Code(s): 435055349 ICD Code: L03.90 - CELLULITIS, UNSPECIFIED; B95.62 - METHICILLIN RESIS STAPH INFCT CAUSING DISEASES CLASSD ELSWHR Status: Acute Priority: High Current Visit: Yes - Patient Summary/Data Consults: Consultations 10/31/17 14:40 OT Evaluation and Treatment [CONS] Routine Please Evaluate and Treat. OT Reason for Consult: Strengthening This query below is only for informational purposes and is not editable. PT Evaluation and Treatment [CONS] Routine Please Evaluate and Treat. PT Reason for Consult: Strengthening This query below is only for informational purposes and is not editable. 11/01/17 08:00 Consult to Physical Therapy [PT Evaluation and Treatment] [CONS] Routine Please Evaluate and Treat. PT Reason for Consult: Wound Care This query below is only for informational purposes and is not editable. Admission Diagnosis/Problem: Pressure ulcer, stage 3 - Discharge Plan Home Medications: Home Meds Albuterol Sulfate [Ventolin Hfa] 1 - 2 puff INH Q4HR 10/27/17 [History] Digoxin [Digoxin] 125 mcg PO DAILY 10/27/17 [History] Warfarin [Coumadin] 1 mg PO ASDIRECTED 10/27/17 [History] - Discharge Summary/Plan Comment DC Time >30 min.: Yes Discharge Summary/Plan Comment: Patient and would like to not only go home but stay home and be discharged. From notes and discussion from nursing, provider Ana had only allowed for an outing and return to the hospital for swing bed cares. Patient states she would like to go and stay home. Risks and benefits discussed of discharge. Patient did well last night with without hallucinations and no confusion. Counseled on wound care daily at the hospital at 10am. Discussed antibiotics use and change to doxycycline 100mg BID and very close monitoring and f/u in clinic or return to swing bed for continued cares if unable to manage at home. Patient and counseled on compliance and I do feel that they will be compliant. Return on for follow up labs in am. BMP, CBC and PT/INR. Hold coumadin until repeat INR on . F/u and return to ER or swing if any worsening or issues. Patient and agree with plan of care and close monitoring and return at any sign of concern. Counseled on wound management and rest. Protective boot for travel and home as needed. Counseled on alcohol and smoking cessation. - Patient Data Vitals - Most Recent: Last Vital Signs Temp 36.1 C 11/08/17 19:45 Pulse 83 11/08/17 19:45 Resp 20 11/08/17 19:45 BP 83/62 L 11/08/17 19:45 Pulse Ox 94 L 11/08/17 19:45 Weight - Most Recent: 60.237 kg I&O - Last 24 hours: Intake & Output 11/08/17 11/09/17 11/09/17 22:59 06:59 14:59 Intake Total 560 300 Output Total 400 550 Balance 160 -250 Lab Results - Last 24 hrs: Laboratory Results - last 24 hr 11/08/17 11/08/17 11/09/17 Range/Units 09:15 09:15 06:32 PT 41.8 H (9.0-11.5) sec INR 4.5 H* (1.0-3.5) Sodium 138 (136-145) mmol/L Potassium 5.0 (3.5-5.1) mmol/L Chloride 103 (98-107) mmol/L Carbon Dioxide 27.4 (21.0-32.0) mmol/L Anion Gap 12.6 (5.0-15.0) mmol/L BUN 33 H (8-26) mg/dL Creatinine 3.24 H* (0.55-1.02) mg/dL Est Cr Clr Drug Dosing 13.40 mL/min Estimated GFR (MDRD) 14 L (>60) MLS/MIN BUN/Creatinine Ratio 10.2 (6-25) Glucose 153 H D (74-100) mg/dL POC Glucose 97 (74-110) mg/dL Calcium 9.1 (8.5-10.1) mg/dL 11/09/17 11/09/17 Range/Units 08:00 08:00 PT 28.6 H D (9.0-11.5) sec INR 3.0 D (1.0-3.5) Sodium 139 (136-145) mmol/L Potassium 5.0 (3.5-5.1) mmol/L Chloride 105 (98-107) mmol/L Carbon Dioxide 25.8 (21.0-32.0) mmol/L Anion Gap 13.2 (5.0-15.0) mmol/L BUN 32 H (8-26) mg/dL Creatinine 3.02 H* (0.55-1.02) mg/dL Est Cr Clr Drug Dosing 14.37 mL/min Estimated GFR (MDRD) 15 L (>60) MLS/MIN BUN/Creatinine Ratio 10.6 (6-25) Glucose 97 D (74-100) mg/dL POC Glucose (74-110) mg/dL Calcium 9.0 (8.5-10.1) mg/dL Med Orders - Current: Current Medications Acetaminophen (Tylenol Extra Strength) 1,000 mg PO Q8H PRN PRN Reason: Pain Last Admin: 11/06/17 20:28 Dose: 1,000 mg Albuterol (Ventolin Hfa) 0 gm INH Q6H [facility] Last Admin: 11/09/17 05:16 Dose: Not Given Digoxin (Lanoxin) 125 mcg PO DAILY [facility] Last Admin: 11/05/17 11:39 Dose: Not Given Sodium Chloride (Normal Saline) 1,000 mls @ 75 mls/hr IV ASDIRECTED [facility] Multivitamins/Minerals 10 ml/Thiamine HCl 100 mg/ Folic Acid 1 mg/ Magnesium Sulfate 3 gm/ Sodium Chloride 1,017.2 mls @ [facility] Last Admin: 11/05/17 23:05 Dose: 75 mls/hr Lactobacillus Acidophilus (Acidolphilus Extra Strength) 1 tab PO DAILY@1200 [facility] Last Admin: 11/08/17 12:34 Dose: 1 tab Ranitidine HCl (Zantac) 150 mg PO BID [facility] Last Admin: 11/09/17 07:30 Dose: 150 mg Trimethoprim/Sulfamethoxazole (Septra Ds) 1 tab PO DAILY [facility] Last Admin: 11/09/17 07:30 Dose: 1 tab Discontinued Medications Acetaminophen (Tylenol Extra Strength) 500 - 1,000 mg PO Q6H PRN PRN Reason: Pain Hydrocodone Bitart/Acetaminophen ([place] 325-5 Mg) 1 tab PO Q4H PRN PRN Reason: Pain (moderate 4-6) Last Admin: 11/03/17 20:26 Dose: 1 tab Hydrocodone Bitart/Acetaminophen ([place] 325-5 Mg) 1 tab .ROUTE .STK-MED ONE Stop: 11/04/17 12:01 Collagenase (Santyl Oint) 0 gm TOP ONETIME ONE Stop: 11/06/17 10:36 Last Admin: 11/06/17 10:35 Dose: 1 applic Cosyntropin (Cortrosyn) 0.25 mg IV ONETIME ONE Stop: 11/06/17 08:27 Last Admin: 11/07/17 05:57 Dose: Not Given Cosyntropin (Cortrosyn) 0.25 mg IV [facility] Stop: 11/06/17 11:00 Last Admin: 11/06/17 10:16 Dose: 0.25 mg Digoxin (Lanoxin) 125 mcg .ROUTE .STK-MED ONE Stop: 11/04/17 12:01 Haloperidol Lactate (Haldol) 5 mg IM ONETIME ONE Stop: 11/05/17 21:45 Last Admin: 11/05/17 21:51 Dose: 5 mg Sodium Chloride (Normal Saline) 1,000 mls @ 75 mls/hr IV [facility] Stop: 11/05/17 11:19 Last Admin: 11/04/17 22:09 Dose: 75 mls/hr Sodium Chloride (Normal Saline) 500 mls @ 250 mls/hr IV ASDIRECTED [facility] Stop: 11/05/17 23:59 Lactobacillus Acidophilus (Acidolphilus Extra Strength) 1 tab .ROUTE .STK-MED ONE Stop: 11/04/17 12:01 Lidocaine (Lta 360 Kit Top Soln) 4 ml .ROUTE .STK-MED ONE Stop: 11/04/17 12:01 Lorazepam (Ativan) 0.25 mg PO ONETIME ONE Stop: 11/05/17 11:41 Last Admin: 11/05/17 12:14 Dose: 0.25 mg Metformin HCl (Glucophage) 250 mg PO BIDMEALS [facility] Last Admin: 11/03/17 08:40 Dose: Not Given Nicotine (Habitrol) 7 mg TRDERM DAILY [facility] Last Admin: 11/05/17 07:50 Dose: 7 mg Pantoprazole Sodium (Protonix) 40 mg PO BIDAC [facility] Last Admin: 11/05/17 06:01 Dose: 40 mg Pantoprazole Sodium (Protonix Granules) 40 mg .ROUTE .STK-MED ONE Stop: 11/04/17 12:01 Sodium Chloride (Saline Flush) 10 ml FLUSH ASDIRECTED PRN PRN Reason: Keep Vein Open Trimethoprim/Sulfamethoxazole (Septra Ds) 1 tab PO BID [facility] Stop: 11/06/17 23:59 Last Admin: 11/03/17 08:42 Dose: 1 tab Trimethoprim/Sulfamethoxazole (Septra Ds) 1 tab .ROUTE .STK-MED ONE Stop: 11/04/17 12:01 Tuberculin PPD (Aplisol) 5 unit IDERM ONETIME ONE Stop: 10/31/17 14:41 Last Admin: 10/31/17 20:22 Dose: 5 unit Warfarin Sodium (Coumadin) 1 mg PO DAILY@1800 [facility] Last Admin: 11/05/17 18:10 Dose: 1 mg *Q Meaningful Use (DIS) - VTE *Q VTE Criteria *Q: - Stroke *Q Stroke Criteria *Q: - AMI *Q AMI Criteria *Q:
[2017-11-09] MEDS ORDERED: Lidocaine 4% Top Soln 50 ML Bottle ONE (09:54)
[2017-11-09] MEDS ORDERED: Doxycycline 100 MG Cap ONE (11:00)
== END 2017-11-09 12:45 | disposition home or self-care (01) | DRG 948 ==
LOC: LB.MS 14:40
PROVIDERS: ADMIT Nurse Practitioner Family; ATTEND Nurse Practitioner Family
DX: R53.1 Weakness (principal); L03.115 Cellulitis of right lower limb; N17.9 Acute kidney failure, unspecified; I50.30 Unspecified diastolic (congestive) heart failure; R44.3 Hallucinations, unspecified; L89.510 Pressure ulcer of right ankle, unstageable; B95.62 Methicillin resistant Staphylococcus aureus infection as the cause of diseases classified elsewhere; I11.0 Hypertensive heart disease with heart failure; I95.9 Hypotension, unspecified; E11.9 Type 2 diabetes mellitus without complications; J44.9 Chronic obstructive pulmonary disease, unspecified; E78.5 Hyperlipidemia, unspecified; Z72.89 Other problems related to lifestyle; F17.210 Nicotine dependence, cigarettes, uncomplicated; I48.91 Unspecified atrial fibrillation; Z79.01 Long term (current) use of anticoagulants; Z22.322 Carrier or suspected carrier of Methicillin resistant Staphylococcus aureus; Z88.7 Allergy status to serum and vaccine; R41.0 Disorientation, unspecified; Z11.1 Encounter for screening for respiratory tuberculosis
CPT/HCPCS: 36415; 80048; 80053; 80400; 81001; 82140; 82962; 83605; 83880; 85025; 85610; 86580; 97110-GP; 97162-GP; 97165-GO; 97530-GO; 97530-GP; 97535-GO; 97597-GP; 97598-GP; A9270-GY; J0834; J1630; J3411; J3475; J3490; J7040

== ENCOUNTER 2017-11-28 08:41 | Emergency (ER) | payer MEDICARE, OTHER ==
[2017-11-28] MEDS ORDERED: methylPREDNISolone Sodium Succinate 125 MG/2 ML SDV IVPUSH ONE (10:17)
[2017-11-28] MEDS ORDERED: methylPREDNISolone Sodium Succinate 125 MG/2 ML SDV ONE (10:25)
[2017-11-28] MEDS ORDERED: NS + KCl 20mEq/L 1,000 ML IV SCH (10:30)
--- NOTE | 2017-11-28 18:50 | ER ---
HISTORY OF PRESENT ILLNESS: A 77-year-old lady who comes in with her with complaints of right knee pain and right foot pain. This has been ongoing for the last 3-4 days, slowly getting worse. She states that her pain is rated at about 8/10 with activity. At rest, it is less. The patient denies any falls or injuries. She does have an ulcer on the right foot that has been treated with physical therapy, and it is greatly improving she tells me. The patient does have history of gout as well. OBJECTIVE: GENERAL APPEARANCE: The patient is awake and alert. No obvious distress. VITAL SIGNS: Reviewed. Blood pressure 86/66. I understand she has history of hypotension. She is not on any blood pressure medications. She is afebrile. Pulse is 80. EXTREMITIES: Examining the right leg reveals the area around the knee, there is no swelling. The skin is intact. There is no redness. There is tenderness with even very light touch diffusely around the right knee. The patient states that her pain goes up to almost a 10 on a 10 scale when she tries to move it. Examining the right foot reveals a dressing is in place. This was partially removed. There is a small Nu Gauze attached to a wound that is very small, about a centimeter or so in diameter. There is no sign of swelling, redness, or drainage. The wound looks like it is doing very well. LAB AND X-RAY STUDIES: CBC shows a normal white count. Monos are slightly elevated. Comprehensive metabolic panel shows a potassium level that is low at 2.9. Kidney function is improving. Creatinine is 1.24. GFR is 42, which has significantly improved recently. Liver panel is unremarkable. X-ray of the knee was obtained showing no acute fracture or acute abnormality. DIAGNOSES: 1. Right knee and foot pain consistent with gout. 2. Hypokalemia. TREATMENT PLAN: The patient was given 1 L of normal saline with 20 mEq of K-Dur. We also gave her Solu-Medrol 125 mg IV. We monitored her for about an hour and a half while the fluids were infusing after which the patient was doing much better. She states her right knee just feels slightly stiff. There is no pain at this time. We assisted her to a sitting position. She was able to stand and walk around the ER with a walker without any pain, just mild stiffness. At this point, the patient will be discharged home with her . We will keep her on a short course of prednisone 20 mg a day for 2 days followed by 10 mg a day for two days. She is to do this starting tomorrow. K-Dur will be also started 10 mEq a day for 15 days starting tomorrow and allopurinol 100 mg a day will be started. I did consult with the pharmacist regarding allopurinol and prednisone based on the patient's kidney function. She is to try to move around the house more. Her right foot is quite stiff. She has not been using it very much lately since the pressure wound has been there, but this is improved now to the point where she needs to start increasing her activity level around the house using a walker. I want the patient to follow up next week with her primary care provider who is Dr. Pan. CRS/MODL /[id number]
--- NOTE | 2017-12-01 00:35 | CR ---
DATE OF SERVICE: 11/28/2017 CLINICAL DATA: Knee pain. No injury. RIGHT KNEE: Comparison is made to a prior exam dated 10/27/2017. There is diffuse osteopenia. There are mild osteoarthritic changes of the knee joint. There is a moderate size joint effusion. There is chondrocalcinosis medially and laterally. There are vascular calcifications in the soft tissues. No acute abnormalities. [id number] [facility]
== END 2017-11-28 12:20 | disposition home or self-care (01) ==
LOC: LB.ED 08:41
DX: M25.561 Pain in right knee (principal); M79.671 Pain in right foot; E87.6 Hypokalemia; M10.9 Gout, unspecified
CPT/HCPCS: 36415; 73562; 80053; 85025; 96361; 96374; 99283; A0425; A0429; J2930; J3480

== ENCOUNTER 2019-03-26 07:58 | Inpatient (IN) | payer MEDICARE, OTHER ==
[2019-03-26] MEDS ORDERED: Acetaminophen 325 MG Tab ONE (16:20)
[2019-03-26] MEDS: Acetaminophen 325 MG Tab PO SCH ×2 (16:25→22:17)
[2019-03-26] MEDS ORDERED: Tuberculin, PPD 5 Units/0.1 ML 1 ML MDV IDERM ONE (17:16)
[2019-03-26] MEDS ORDERED: OXYCODONE PO PRN (18:14)
[2019-03-26] MEDS ORDERED: BETAMETHASONE DIPROPIONATE TP PRN (18:14)
[2019-03-26] MEDS ORDERED: Albuterol 8 GM Inhaler INH PRN ×2 (18:22→18:35)
[2019-03-26] MEDS ORDERED: oxyCODONE 5 MG Tab PO PRN (18:30)
[2019-03-26] MEDS ORDERED: Acetaminophen 325 MG Tab PO SCH (18:30)
[2019-03-26] MEDS ORDERED: Metoprolol Tartrate 25 MG Tab PO SCH ×2 (18:30→20:00)
--- NOTE | 2019-03-26 19:15 | ADMIT ---
DATE OF SERVICE: 03/26/2019 HISTORY OF PRESENT ILLNESS: This is a 78-year-old lady who is admitted to swing bed status from the [facility]. She recently had an amputation of the great toe and second toe on the right foot on March 17. This was due to ongoing issues with wound infections and peripheral vascular disease. The patient also has history of diabetes and she is a smoker. I understand there was a graft from the luciano that used to cover the surgical site. She is here for strengthening purposes. The patient is awake. She has recently eaten her supper after which I enter the room to visit with her. She states that she is having some pain, but nothing significant and she does not want anything further for pain control. The patient states she otherwise feels fine. She is not coughing or having any breathing issues. PHYSICAL EXAMINATION: VITAL SIGNS: Today revealed blood pressure of 79/55. I understand this is in the normal range for this patient. She is afebrile. Pulse is 70, respirations 18. EXTREMITIES: Examining the right foot and lower leg reveals a dressing is in place. There is no saturation through the dressing. The skin just above the dressing which is just below the knee is normal in color and warm to touch. LUNGS: Clear. CARDIAC: Heart sounds distinct without murmurs. SKIN: Otherwise warm and dry. Further details per nursing staff, the patient was tested positive recently for MRSA and she has a low hemoglobin, but it is climbing with most recent hemoglobin level of 7.9. She is on Coumadin for atrial fibrillation and she is a full code. TREATMENT PLAN: We will continue the patient's current medications. PT and OT will be started and she will be watched over the weekend in our facility. TU/JORGE /[id number] YEIMY
[2019-03-26] MEDS: Hydrocortisone Acetate 1% Crm 30 GM Tube TOP SCH (19:44)
[2019-03-26] MEDS: atorvaSTATin 40 MG Tab PO SCH (19:45)
[2019-03-26] MEDS ORDERED: atorvaSTATin 40 MG Tab PO SCH (20:00)
[2019-03-26] MEDS ORDERED: Ferrous Sulfate 325 MG Tab PO SCH (20:00)
[2019-03-27] MEDS: Acetaminophen 325 MG Tab PO SCH ×2 (05:16→08:05)
[2019-03-27] MEDS: Allopurinol 100 MG Tab PO SCH (07:53)
[2019-03-27] MEDS: Aspirin 81 MG Tab.Chew PO SCH (07:54)
[2019-03-27] MEDS: Ferrous Sulfate 325 MG Tab PO SCH ×2 (07:54→17:13)
[2019-03-27] MEDS: Clopidogrel 75 MG Tab PO SCH (07:54)
[2019-03-27] MEDS: metFORMIN 500 MG Tab PO SCH ×2 (07:54→17:13)
[2019-03-27] MEDS: Hydrocortisone Acetate 1% Crm 30 GM Tube TOP SCH ×3 (07:54→20:07)
[2019-03-27] MEDS: Nicotine 21 MG/24 Hr Patch TRDERM SCH (07:54)
[2019-03-27] MEDS ORDERED: metFORMIN 500 MG Tab PO SCH (08:00)
[2019-03-27] MEDS ORDERED: Non-Formulary Medication 1 Each (Warfarin [Coumadin] 2.5 MG) PO SCH (08:00)
[2019-03-27] MEDS ORDERED: Polyethylene Glycol 3350 Powder 17 GM Packet PO SCH (08:00)
[2019-03-27] MEDS ORDERED: Nicotine 21 MG/24 Hr Patch TRDERM SCH (08:00)
[2019-03-27] MEDS ORDERED: Allopurinol 100 MG Tab PO SCH (08:00)
[2019-03-27] MEDS ORDERED: Clopidogrel 75 MG Tab PO SCH (08:00)
[2019-03-27] MEDS ORDERED: Aspirin 81 MG Tab.EC PO SCH (08:00)
[2019-03-27] MEDS: Metoprolol Tartrate 25 MG Tab PO SCH ×2 (08:01→20:08)
[2019-03-27] MEDS ORDERED: Polyethylene Glycol 3350 Powder 17 GM Packet PO PRN (08:54)
[2019-03-27] MEDS: Acetaminophen 325 MG Tab PO PRN (13:09)
[2019-03-27] MEDS: Warfarin 2.5 MG Tab PO SCH (17:13)
[2019-03-27] MEDS: atorvaSTATin 40 MG Tab PO SCH (20:07)
[2019-03-28] MEDS: Acetaminophen 325 MG Tab PO PRN ×2 (05:53→20:09)
[2019-03-28] MEDS: metFORMIN 500 MG Tab PO SCH ×2 (07:25→17:22)
[2019-03-28] MEDS: Aspirin 81 MG Tab.Chew PO SCH (07:25)
[2019-03-28] MEDS: Nicotine 21 MG/24 Hr Patch TRDERM SCH (07:26)
[2019-03-28] MEDS: Hydrocortisone Acetate 1% Crm 30 GM Tube TOP SCH ×3 (07:26→20:06)
[2019-03-28] MEDS: Clopidogrel 75 MG Tab PO SCH (07:26)
[2019-03-28] MEDS: Allopurinol 100 MG Tab PO SCH (07:26)
[2019-03-28] MEDS: Ferrous Sulfate 325 MG Tab PO SCH ×2 (07:26→17:22)
[2019-03-28] MEDS: Metoprolol Tartrate 25 MG Tab PO SCH ×2 (08:31→20:06)
[2019-03-28] MEDS: Warfarin 2.5 MG Tab PO SCH (17:22)
[2019-03-28] MEDS: atorvaSTATin 40 MG Tab PO SCH (20:06)
[2019-03-29] MEDS: Aspirin 81 MG Tab.Chew PO SCH (08:08)
[2019-03-29] MEDS: metFORMIN 500 MG Tab PO SCH ×2 (08:09→16:47)
[2019-03-29] MEDS: Ferrous Sulfate 325 MG Tab PO SCH ×2 (08:09→16:47)
[2019-03-29] MEDS: Metoprolol Tartrate 25 MG Tab PO SCH ×2 (08:11→19:21)
[2019-03-29] MEDS: Allopurinol 100 MG Tab PO SCH (08:12)
[2019-03-29] MEDS: Clopidogrel 75 MG Tab PO SCH (08:12)
[2019-03-29] MEDS: Nicotine 21 MG/24 Hr Patch TRDERM SCH (08:13)
[2019-03-29] MEDS: Hydrocortisone Acetate 1% Crm 30 GM Tube TOP SCH ×3 (08:14→20:05)
--- NOTE | 2019-03-29 16:49 | PCM.PN ---
- General Info Date of Service: 03/29/19 Subjective Update: This is a pleasant 78yo F here in swing bed for post toe amputation. Patient has no concerns with the foot. She has been doing well with no fevers or chills and pain is under control. Patient does have a concern with the right groin area scar area that develops an irritation and feels it may be a yeast infection. Functional Status: Reports: Pain Controlled, Tolerating Diet - Review of Systems General: Reports: Weakness HEENT: Reports: No Symptoms Pulmonary: Reports: No Symptoms Cardiovascular: Reports: No Symptoms Gastrointestinal: Reports: No Symptoms Musculoskeletal: Reports: Foot Pain (controlled) Skin: Reports: No Symptoms Neurological: Reports: Weakness Psychiatric: Reports: No Symptoms - Patient Data Vitals - Most Recent: Last Vital Signs Temp 36.4 C 03/29/19 08:00 Pulse 91 03/29/19 08:11 Resp 18 03/29/19 08:00 BP 102/62 03/29/19 08:11 Pulse Ox 96 03/29/19 08:00 Weight - Most Recent: 61.462 kg Lab Results Last 24 Hours: Laboratory Results - last 24 hr 03/29/19 03/29/19 03/29/19 Range/Units 09:00 09:00 09:00 WBC (4.0-11.0) K/uL RBC (3.80-5.80) M/uL Hgb (11.5-16.5) g/dL Hct (37.0-47.0) % MCV (76-96) fL MCH (27.0-32.0) pg MCHC (31.0-35.0) g/dL RDW (11.0-16.0) % Plt Count (150-500) K/uL MPV (6.0-10.0) fL Neut % (Auto) (45.0-70.0) % Lymph % (Auto) (20.0-40.0) % [place] % (Auto) (3.0-10.0) % Eos % (Auto) (1.0-5.0) % Baso % (Auto) (0.0-0.5) % Neut # (Auto) (2.00-7.50) K/uL Lymph # (Auto) (1.50-4.00) K/uL [place] # (Auto) (0.20-0.80) K/uL Eos # (Auto) (0.04-0.40) K/uL Baso # (Auto) (0.02-0.10) K/uL PT 19.2 H D (9.0-11.5) sec INR 2.0 D (1.0-3.5) Sodium (136-145) mmol/L Potassium (3.5-5.1) mmol/L Chloride (98-107) mmol/L Carbon Dioxide (21.0-32.0) mmol/L Anion Gap (5.0-15.0) mmol/L BUN (8-26) mg/dL Creatinine (0.55-1.02) mg/dL Est Cr Clr Drug Dosing mL/min Estimated GFR (MDRD) (>60) MLS/MIN BUN/Creatinine Ratio (6-25) Glucose (74-100) mg/dL Hemoglobin A1c 7.0 H (4.5-6.2) % Uric Acid 4.1 (2.6-7.2) mg/dL Calcium (8.5-10.1) mg/dL Total Bilirubin (0.0-1.0) mg/dL AST (15-37) U/L ALT (12-78) U/L Alkaline Phosphatase (46-116) U/L Total Protein (6.4-8.2) g/dL Albumin (3.4-5.0) g/dL Globulin (2.2-4.2) g/dL Albumin/Globulin Ratio (0.8-2.0) 03/29/19 03/29/19 Range/Units 09:00 09:00 WBC 8.7 (4.0-11.0) K/uL RBC 2.94 L (3.80-5.80) M/uL Hgb 8.4 L (11.5-16.5) g/dL Hct 27.4 L (37.0-47.0) % MCV 93 (76-96) fL MCH 28.6 (27.0-32.0) pg MCHC 30.7 L (31.0-35.0) g/dL RDW 18.5 H (11.0-16.0) % Plt Count 471 D (150-500) K/uL MPV 10.2 H (6.0-10.0) fL Neut % (Auto) 57.7 (45.0-70.0) % Lymph % (Auto) 30.3 (20.0-40.0) % [place] % (Auto) 7.4 (3.0-10.0) % Eos % (Auto) 4.0 (1.0-5.0) % Baso % (Auto) 0.6 H (0.0-0.5) % Neut # (Auto) 4.99 (2.00-7.50) K/uL Lymph # (Auto) 2.62 (1.50-4.00) K/uL [place] # (Auto) 0.64 (0.20-0.80) K/uL Eos # (Auto) 0.35 (0.04-0.40) K/uL Baso # (Auto) 0.05 (0.02-0.10) K/uL PT (9.0-11.5) sec INR (1.0-3.5) Sodium 139 (136-145) mmol/L Potassium 4.3 (3.5-5.1) mmol/L Chloride 100 (98-107) mmol/L Carbon Dioxide 28.7 (21.0-32.0) mmol/L Anion Gap 14.6 (5.0-15.0) mmol/L BUN 12 (8-26) mg/dL Creatinine 0.80 (0.55-1.02) mg/dL Est Cr Clr Drug Dosing 47.17 mL/min Estimated GFR (MDRD) > 60 (>60) MLS/MIN BUN/Creatinine Ratio 15.0 (6-25) Glucose 164 H (74-100) mg/dL Hemoglobin A1c (4.5-6.2) % Uric Acid (2.6-7.2) mg/dL Calcium 8.8 (8.5-10.1) mg/dL Total Bilirubin 0.4 (0.0-1.0) mg/dL AST 17 (15-37) U/L ALT 17 (12-78) U/L Alkaline Phosphatase 103 (46-116) U/L Total Protein 7.0 (6.4-8.2) g/dL Albumin 2.8 L (3.4-5.0) g/dL Globulin 4.2 (2.2-4.2) g/dL Albumin/Globulin Ratio 0.7 L (0.8-2.0) Med Orders - Current: Current Medications Acetaminophen (Tylenol) 650 mg PO Q6H PRN PRN Reason: Pain Last Admin: 03/28/19 20:09 Dose: 650 mg Albuterol (Ventolin Hfa) 0 gm INH Q4H PRN PRN Reason: Shortness of Breath Allopurinol (Zyloprim) 200 mg PO DAILY [facility] Last Admin: 03/29/19 08:12 Dose: 200 mg Aspirin (Aspirin) 81 mg PO DAILY [facility] Last Admin: 03/29/19 08:08 Dose: 81 mg Atorvastatin Calcium (Lipitor) 40 mg PO BEDTIME [facility] Last Admin: 03/28/19 20:06 Dose: 40 mg Clopidogrel Bisulfate (Plavix) 75 mg PO DAILY [facility] Last Admin: 03/29/19 08:12 Dose: 75 mg Ferrous Sulfate (Ferrous Sulfate) 325 mg PO BIDMEALS [facility] Last Admin: 03/29/19 08:09 Dose: 325 mg Hydrocortisone Acetate (Hydrocortisone Acetate 1% Crm) 0 gm TOP TID [facility] Last Admin: 03/29/19 13:26 Dose: 1 applic Metformin HCl (Glucophage) 500 mg PO BIDMEALS [facility] Last Admin: 03/29/19 08:09 Dose: 500 mg Metoprolol Tartrate (Lopressor) 12.5 mg PO Q12H [facility] Last Admin: 03/29/19 08:11 Dose: 12.5 mg Nicotine (Habitrol) 21 mg TRDERM DAILY [facility] Last Admin: 03/29/19 08:13 Dose: 21 mg Oxycodone HCl (Oxycodone) 2.5 mg PO Q6H PRN PRN Reason: Pain Polyethylene Glycol (Miralax) 17 gm PO DAILY PRN PRN Reason: Constipation Warfarin Sodium (Coumadin) 2.5 mg PO DAILY@1800 [facility] Last Admin: 03/28/19 17:22 Dose: 2.5 mg Discontinued Medications Acetaminophen (Tylenol) Confirm Administered Dose 650 mg .ROUTE .STK-MED ONE Stop: 03/26/19 16:21 Last Admin: 03/26/19 18:40 Dose: Not Given Acetaminophen (Tylenol) 650 mg PO Q6H [facility] Acetaminophen (Tylenol) 650 mg PO Q6H [facility] Last Admin: 03/27/19 08:05 Dose: 650 mg Albuterol (Ventolin Hfa) 0 gm INH Q4H PRN PRN Reason: SHORTNESS OF BREATH Allopurinol (Zyloprim) 200 mg PO DAILY [facility] Aspirin (Halfprin) 81 mg PO DAILY [facility] Atorvastatin Calcium (Lipitor) 40 mg PO BEDTIME [facility] Clopidogrel Bisulfate (Plavix) 75 mg PO DAILY [facility] Ferrous Sulfate (Ferrous Sulfate) 325 mg PO BID [facility] Metformin HCl (Glucophage) 500 mg PO BIDMEALS [facility] Metoprolol Tartrate (Lopressor) 12.5 mg PO BID [facility] Metoprolol Tartrate (Lopressor) 12.5 mg PO Q12H [facility] Last Admin: 03/26/19 19:43 Dose: Not Given Nicotine (Habitrol) 21 mg TRDERM Q24H [facility] Non-Formulary Medication (Betamethasone Dipropionate [Diprosone 0.05% Crm]) 15 gm TP BID PRN PRN Reason: Itching Non-Formulary Medication (Oxycodone [Oxycodone]) 2.5 mg PO Q6H PRN PRN Reason: Pain Non-Formulary Medication (Polyethylene Glycol 3350 [Miralax]) 17 gm PO DAILY PRN PRN Reason: Constipation Non-Formulary Medication (Warfarin [Coumadin]) 2.5 mg PO DAILY [facility] Polyethylene Glycol (Miralax) 17 gm PO DAILY [facility] Last Admin: 03/27/19 08:01 Dose: Not Given Tuberculin PPD (Aplisol) 5 unit IDERM ONETIME ONE Stop: 03/26/19 17:17 Last Admin: 03/26/19 17:28 Dose: 5 unit - Exam Quality Assessment: Supplemental Oxygen General: Alert, Oriented, Cooperative HEENT: Pupils Equal, Pupils Reactive, EOMI Neck: Supple Lungs: Normal Respiratory Effort, Rhonchi Cardiovascular: Regular Rate, Regular Rhythm Back Exam: Normal Inspection Extremities: Other (right toe healing and wrapped) Peripheral Pulses: 1+: Dorsalis Pedis (R), 2+: Dorsalis Pedis (L) - Problem List & Annotations (1) Post-operative state SNOMED Code(s): 28314593 Code(s): Z98.890 - OTHER SPECIFIED POSTPROCEDURAL STATES Status: Acute Priority: High Current Visit: Yes (2) Right foot pain SNOMED Code(s): 20239046 Code(s): M79.671 - PAIN IN RIGHT FOOT Status: Acute Priority: High Current Visit: Yes Onset Date: ~11/28/17 Annotation/Comment:: 11/28/17 - 1. Right knee and foot pain consistent with gout. 2. Hypokalemia - Problem List Review Problem List Initiated/Reviewed/Updated: Yes - Plan Plan:: Counseled on continued care. Discussed f/u post swing bed rehabilitation. Dr. Feldman did see patient today. Patient to follow Dr. Humphrey' orders.
[2019-03-29] MEDS: Warfarin 2.5 MG Tab PO SCH (17:22)
[2019-03-29] MEDS: atorvaSTATin 40 MG Tab PO SCH (19:20)
[2019-03-29] MEDS: Acetaminophen 325 MG Tab PO PRN (22:20)
[2019-03-30] MEDS: Acetaminophen 325 MG Tab PO PRN (06:09)
[2019-03-30] MEDS: Aspirin 81 MG Tab.Chew PO SCH (08:36)
[2019-03-30] MEDS: Ferrous Sulfate 325 MG Tab PO SCH (08:36)
[2019-03-30] MEDS: metFORMIN 500 MG Tab PO SCH (08:36)
[2019-03-30] MEDS: Hydrocortisone Acetate 1% Crm 30 GM Tube TOP SCH (08:37)
[2019-03-30] MEDS: Nicotine 21 MG/24 Hr Patch TRDERM SCH (08:37)
[2019-03-30] MEDS: Clopidogrel 75 MG Tab PO SCH (08:38)
[2019-03-30] MEDS: Allopurinol 100 MG Tab PO SCH (08:38)
[2019-03-30] MEDS: Metoprolol Tartrate 25 MG Tab PO SCH (09:00)
--- NOTE | 2019-03-30 11:03 | PCM.DCSUM1 ---
Discharge Summary - Discharge Data Discharge Date: 03/30/19 Discharge Disposition: Home, Self-Care 01 Condition: Good - Discharge Diagnosis/Problem(s) (1) Post-operative state SNOMED Code(s): 60422103 ICD Code: Z98.890 - OTHER SPECIFIED POSTPROCEDURAL STATES Status: Acute Priority: High Current Visit: Yes (2) Right foot pain SNOMED Code(s): 97248419 ICD Code: M79.671 - PAIN IN RIGHT FOOT Status: Resolved Priority: High Current Visit: Yes Onset Date: ~11/28/17 Problem Details: 11/28/17 - 1. Right knee and foot pain consistent with gout. 2. Hypokalemia - Patient Summary/Data Consults: Consultations 03/26/19 17:56 OT Evaluation and Treatment [CONS] Routine Please Evaluate and Treat. OT Reason for Consult: Strengthening This query below is only for informational purposes and is not editable. PT Evaluation and Treatment [CONS] Routine Please Evaluate and Treat. PT Reason for Consult: Strengthening This query below is only for informational purposes and is not editable. - Patient Instructions Diet: Usual Diet as Tolerated Activity: As Tolerated Driving: Do Not Drive - Discharge Plan Prescriptions/Med Rec: Nystatin [Nystatin Crm] 15 gm TOP QID #1 tube Home Medications: Home Meds Acetaminophen [Tylenol Bulk Bottle] 650 mg PO Q6H 03/26/19 [History] Albuterol [Ventolin HFA] 1 - 2 puff INH Q4H PRN 03/26/19 [History] Allopurinol [Zyloprim] 200 mg PO DAILY 03/26/19 [History] Aspirin 81 mg PO DAILY 03/26/19 [History] Betamethasone Dipropionate [Diprosone 0.05% Crm] 15 gm TP BID PRN 03/26/19 [ History] Clopidogrel [Plavix] 75 mg PO DAILY 03/26/19 [History] Ferrous Sulfate 325 mg PO BID 03/26/19 [History] Metoprolol Tartrate [Lopressor] 12.5 mg PO Q12HR 03/26/19 [History] Nicotine [Habitrol] 21 mg TD DAILY 03/26/19 [History] Polyethylene Glycol 3350 [MiraLAX] 17 gm PO DAILY PRN 03/26/19 [History] Warfarin [Coumadin] 2.5 mg PO DAILY 03/26/19 [History] atorvaSTATin [Lipitor] 40 mg PO BEDTIME 03/26/19 [History] metFORMIN [Glucophage] 500 mg PO BIDMEALS 03/26/19 [History] oxyCODONE 2.5 mg PO Q6H PRN 03/26/19 [History] Nystatin [Nystatin Crm] 15 gm TOP QID #1 tube 03/29/19 [Rx] - Discharge Summary/Plan Comment DC Time >30 min.: No Discharge Summary/Plan Comment: Counseled on continued f/u and wound care for foot. Discussed f/u with Dr. Feldman - podiatry. Discussed routine f/u and care. - Patient Data Vitals - Most Recent: Last Vital Signs Temp 36.4 C 03/30/19 09:00 Pulse 85 03/30/19 09:00 Resp 18 03/30/19 09:00 BP 91/46 L 03/30/19 09:00 Pulse Ox 91 L 03/30/19 09:00 Weight - Most Recent: 61.462 kg Med Orders - Current: Current Medications Acetaminophen (Tylenol) 650 mg PO Q6H PRN PRN Reason: Pain Last Admin: 03/30/19 06:09 Dose: 650 mg Albuterol (Ventolin Hfa) 0 gm INH Q4H PRN PRN Reason: Shortness of Breath Allopurinol (Zyloprim) 200 mg PO DAILY [facility] Last Admin: 03/30/19 08:38 Dose: 200 mg Aspirin (Aspirin) 81 mg PO DAILY [facility] Last Admin: 03/30/19 08:36 Dose: 81 mg Atorvastatin Calcium (Lipitor) 40 mg PO BEDTIME [facility] Last Admin: 03/29/19 19:20 Dose: 40 mg Clopidogrel Bisulfate (Plavix) 75 mg PO DAILY [facility] Last Admin: 03/30/19 08:38 Dose: 75 mg Ferrous Sulfate (Ferrous Sulfate) 325 mg PO BIDMEALS [facility] Last Admin: 03/30/19 08:36 Dose: 325 mg Hydrocortisone Acetate (Hydrocortisone Acetate 1% Crm) 0 gm TOP TID [facility] Last Admin: 03/30/19 08:37 Dose: 1 applic Metformin HCl (Glucophage) 500 mg PO BIDMEALS [facility] Last Admin: 03/30/19 08:36 Dose: 500 mg Metoprolol Tartrate (Lopressor) 12.5 mg PO Q12H [facility] Last Admin: 03/30/19 09:00 Dose: Not Given Nicotine (Habitrol) 21 mg TRDERM DAILY [facility] Last Admin: 03/30/19 08:37 Dose: 21 mg Oxycodone HCl (Oxycodone) 2.5 mg PO Q6H PRN PRN Reason: Pain Polyethylene Glycol (Miralax) 17 gm PO DAILY PRN PRN Reason: Constipation Warfarin Sodium (Coumadin) 2.5 mg PO DAILY@1800 [facility] Last Admin: 03/29/19 17:22 Dose: 2.5 mg Discontinued Medications Acetaminophen (Tylenol) Confirm Administered Dose 650 mg .ROUTE .[facility]-MED ONE Stop: 03/26/19 16:21 Last Admin: 03/26/19 18:40 Dose: Not Given Acetaminophen (Tylenol) 650 mg PO Q6H [facility] Acetaminophen (Tylenol) 650 mg PO Q6H [facility] Last Admin: 03/27/19 08:05 Dose: 650 mg Albuterol (Ventolin Hfa) 0 gm INH Q4H PRN PRN Reason: SHORTNESS OF BREATH Allopurinol (Zyloprim) 200 mg PO DAILY [facility] Aspirin (Halfprin) 81 mg PO DAILY [facility] Atorvastatin Calcium (Lipitor) 40 mg PO BEDTIME [facility] Clopidogrel Bisulfate (Plavix) 75 mg PO DAILY [facility] Ferrous Sulfate (Ferrous Sulfate) 325 mg PO BID [facility] Metformin HCl (Glucophage) 500 mg PO BIDMEALS [facility] Metoprolol Tartrate (Lopressor) 12.5 mg PO BID [facility] Metoprolol Tartrate (Lopressor) 12.5 mg PO Q12H [facility] Last Admin: 03/26/19 19:43 Dose: Not Given Nicotine (Habitrol) 21 mg TRDERM Q24H [facility] Non-Formulary Medication (Betamethasone Dipropionate [Diprosone 0.05% Crm]) 15 gm TP BID PRN PRN Reason: Itching Non-Formulary Medication (Oxycodone [Oxycodone]) 2.5 mg PO Q6H PRN PRN Reason: Pain Non-Formulary Medication (Polyethylene Glycol 3350 [Miralax]) 17 gm PO DAILY PRN PRN Reason: Constipation Non-Formulary Medication (Warfarin [Coumadin]) 2.5 mg PO DAILY [facility] Polyethylene Glycol (Miralax) 17 gm PO DAILY [facility] Last Admin: 03/27/19 08:01 Dose: Not Given Tuberculin PPD (Aplisol) 5 unit IDERM ONETIME ONE Stop: 03/26/19 17:17 Last Admin: 03/26/19 17:28 Dose: 5 unit
== END 2019-03-30 11:30 | disposition home or self-care (01) | DRG 948 ==
LOC: UNDOADMIN 11:05 → LB.MS 11:05
PROVIDERS: ADMIT Physician Assistant; ATTEND Nurse Practitioner Family
DX: R53.1 Weakness (principal); Z98.890 Other specified postprocedural states; E11.3293 Type 2 diabetes mellitus with mild nonproliferative diabetic retinopathy without macular edema, bilateral; E11.51 Type 2 diabetes mellitus with diabetic peripheral angiopathy without gangrene; Z79.84 Long term (current) use of oral hypoglycemic drugs; I10 Essential (primary) hypertension; N28.9 Disorder of kidney and ureter, unspecified; M10.372 Gout due to renal impairment, left ankle and foot; I48.91 Unspecified atrial fibrillation; Z79.01 Long term (current) use of anticoagulants; Z86.14 Personal history of Methicillin resistant Staphylococcus aureus infection; Z11.1 Encounter for screening for respiratory tuberculosis; Z79.82 Long term (current) use of aspirin; J44.9 Chronic obstructive pulmonary disease, unspecified; L71.9 Rosacea, unspecified; M19.90 Unspecified osteoarthritis, unspecified site; F17.210 Nicotine dependence, cigarettes, uncomplicated; I65.29 Occlusion and stenosis of unspecified carotid artery; Z89.411 Acquired absence of right great toe; Z89.421 Acquired absence of other right toe(s); Z88.7 Allergy status to serum and vaccine; Z88.8 Allergy status to other drugs, medicaments and biological substances; Z79.899 Other long term (current) drug therapy
CPT/HCPCS: 36415; 80053; 83036; 84550; 85025; 85610; 86580; 97110-GO; 97110-GP; 97161-GP; 97165-GO; A9270-GY

== ENCOUNTER → 2019-09-29 | Outpatient (CLI) | payer MEDICARE, OTHER | LOC: LB.COAG 13:25 | PROVIDERS: ATTEND Family Medicine | DX: Z51.81 Encounter for therapeutic drug level monitoring (principal); I48.91 Unspecified atrial fibrillation; Z79.01 Long term (current) use of anticoagulants | CPT/HCPCS: 85610 ==

== ENCOUNTER 2020-01-07 08:54 | Inpatient (IN) | payer MEDICARE, OTHER ==
[2020-01-27] MEDS ORDERED: Tuberculin, PPD 5 Units/0.1 ML 1 ML MDV IDERM ONE (14:19)
[2020-01-27] MEDS ORDERED: Non-Formulary Medication 1 Each (Betamethasone Dipropionate [Diprosone 0.05% Crm] 1 APPLIC TP PRN (15:30)
[2020-01-27] MEDS ORDERED: Albuterol 8 GM Inhaler INH PRN (15:30)
--- NOTE | 2020-01-27 16:13 | PCM.HP.2 ---
H&P History of Present Illness - General Date of Service: 01/27/20 Admit Problem/Dx: Admission Diagnosis/Problem Admission Diagnosis/Problem Amputation of lower limb Source of Information: Patient, Family, Old Records, RN, RN Notes Reviewed, Other (PT notes) History Limitations: Reports: No Limitations - History of Present Illness Initial Comments - Free Text/Narative: Kim presents to our facility for swing bed admission. She had a long and complex hospital stay at [facility] in [place]. Prior to that she had lived at home with her . She has had a longstanding history of severe peripheral vascular disease. 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 She ended up being admitted to the hospital with gangrene of her left foot as well as medial and lateral ulcers of the right BKA stump. She was noted to have critical limb ischemia with gangrene and underwent bilateral [id number] amputations on 01/03/2020. Postoperatively, she had a Small catheter, and an epidural to assist with pain control. She is anticoagulated for A. fib and had some episodes of tachycardia. Her transfer here from last week was postponed due to acute blood loss superimposed on her anemia of chronic disease. She has type 2 diabetes mellitus managed with supplemental insulin she has been provided with oral as well as IV pain medications prior to her dressing changes. She may have had some delirium throughout her stay and [place] but at this point has been clear in terms of her mentation. She certainly has no concerns, and denies pain at this point. She previously was on home oxygen. Her home care nurse is aware of her situation, and her has ordered a Kristie lift in a hospital bed with the hope that Crissy will be able to go home, and her daughter is quitting her job in order to come home and help care for her parents. - Related Data Allergies/Adverse Reactions: Allergies Allergy/AdvReac Type Severity Reaction Status Date / Time brimonidine [From Alphagan P] Allergy Cannot Verified 01/27/20 13:32 Remember Tetanus Vaccines and Toxoid Allergy Cannot Verified 01/27/20 13:32 [Tetanus Vaccines & Toxoid] Remember Home Medications: Home Meds Albuterol [Ventolin HFA] 1 - 2 puff INH Q4H PRN 03/26/19 [History] Betamethasone Dipropionate [Diprosone 0.05% Crm] 1 applic TP BID PRN 03/26/19 [ History] Ferrous Sulfate 325 mg PO DAILY 03/26/19 [History] Metoprolol Tartrate [Lopressor] 12.5 mg PO Q12HR 03/26/19 [History] Warfarin [Coumadin] 2.5 mg PO DAILY 03/26/19 [History] allopurinoL [Zyloprim] 100 mg PO DAILY 03/26/19 [History] atorvaSTATin [Lipitor] 40 mg PO BEDTIME 03/26/19 [History] metFORMIN [Glucophage] 500 mg PO BIDMEALS 03/26/19 [History] oxyCODONE 2.5 mg PO Q6H PRN 03/26/19 [History] polyethylene glycoL 3350 [MiraLAX] 17 gm PO BID 03/26/19 [History] Acetaminophen 500 mg PO Q6HR PRN 01/27/20 [History] Ascorbic Acid [Vitamin C] 250 mg PO DAILY 01/27/20 [History] Collagenase [Santyl Oint] 1 applic TP BID 01/27/20 [History] Cyanocobalamin (Vitamin B-12) [Vitamin B-12] 2,000 mcg PO BEDTIME 01/27/20 [ History] Gabapentin [Neurontin] 300 mg PO BEDTIME 01/27/20 [History] Pnv No.95/Ferrous Fum/Folic AC [ Vitamin Tablet] 1 each PO DAILY [History] Sennosides [Senna] 8.6 mg PO BID 01/27/20 [History] Varenicline [Chantix] 1 mg PO BID 01/27/20 [History] Zinc Sulfate 220 mg PO DAILY 01/27/20 [History] Past Medical History HEENT History: Reports: Cataract, Impaired Vision, Other (See Below) Other HEENT History: plate in right eye approx 4 years ago in [place] eye surgery to attemp to lift eyelid in [place] Cardiovascular History: Reports: Afib Respiratory History: Reports: COPD, Croup, SOB Other Respiratory History: SOB with activity Gastrointestinal History: Reports: GERD Musculoskeletal History: Reports: Amputation, Other (See Below) Other Musculoskeletal History: uses a walker at home when she has a sore foot Endocrine/Metabolic History: Reports: Diabetes, Type II Dermatologic History: Reports: Cellulitis Other Dermatologic History: pt had a blister on her right ankle foot which popped 2 days ago now pt has cellulitis of that foot with large amount of drainage - Infectious Disease History Infectious Disease History: Reports: MRSA - Past Surgical History HEENT Surgical History: Reports: Cataract Surgery Cardiovascular Surgical History: Reports: None Respiratory Surgical History: Reports: None Musculoskeletal Surgical History: Reports: None, Amputation Other Musculoskeletal Surgeries/Procedures:: Right BKA - History Comment History Comment: Past medical history is remarkable for chronic atrial fibrillation anticoagulated on warfarin history of branch retinal 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 right eye carotid stenosis COPD type 2 diabetes mellitus with diabetic retinopathy and glaucoma history of hypertension although her current blood pressure status runs in the neighborhood of 70 systolic she has severe rosacea past surgical conditions include bilateral [id number] amputations for critical ischemia and gangrene status post remote appendectomy has a history of a Avastin injections in August 2013 as well as bilateral cataract extractions her last colonoscopy I believe was in January 2015 it is not sure when she was recommended for repeat surveillance she had a wound VAC for wounds of her right lower extremity in March 2019 she is status post right femoral endarterectomy status post remote hysterectomy status post multiple other eye surgeries and a history of skin grafting of her right lower extremity Social & Family History - Family History HEENT: Reports: Other (See Below) Other HEENT Family History: states sister has eye problems Cardiac: Reports: Other (See Below) Other Cardiac Family History: Brother with some heart problems - Tobacco Use Used Tobacco, but Quit: Yes - Caffeine Use Caffeine Use: Reports: Coffee Other Caffeine Use: 2 coffees, 1 pop/day - Alcohol Use Alcohol Use History: Yes H&P Review of Systems - Review of Systems: Review Of Systems: Comprehensive ROS is negative, except as noted in HPI. Review of Systems Comment:: Both preference to be DNR/DNI Exam - Exam Exam: See Below - Vital Signs Vital Signs: Last Vital Signs Temp 97.1 F 01/27/20 15:26 Pulse 73 01/27/20 15:26 Resp 18 01/27/20 15:26 BP 85/63 L 01/27/20 15:26 Pulse Ox 89 L 01/27/20 15:26 Weight: 104 lb 6.4 oz - Exam Quality Assessment: Supplemental Oxygen General: Alert, Oriented, Other (Chronically ill-appearing) HEENT: EOMI. No: Scleral Icterus Neck: No: Lymphadenopathy, JVD, Thyromegaly Lungs: Clear to Auscultation, Normal Respiratory Effort. No: Rales, Rhonchi, Stridor, Wheezing Cardiovascular: Irregular Rhythm, Other (No murmur appreciated although she has a plastic dedicated stethoscope) GI/Abdominal Exam: Normal Bowel Sounds, Soft, Non-Tender Extremities: Other (Bilateral lower extremity stumps are wrapped with Jesse bandages) Neurological: Normal Speech Neuro Extensive - Mental Status: Alert, Normal Mood/Affect, Normal Cognition Sepsis Event Note - Focused Exam Vital Signs: Vital Signs Temp Pulse Resp BP Pulse Ox 01/27/20 15:26 97.1 F 73 18 85/63 L 89 L Date Exam was Performed: 01/27/20 Time Exam was Performed: 16:05 Problem List Initiated/Reviewed/Updated: Yes Orders Last 24hrs: Active Orders 24 hr Category Date Time Status Patient Status [ADT] Routine ADT 01/27/20 14:02 Active Accu Check [Blood Glucose Check, Bedside] [RC] 08 Care 01/27/20 14:16 Active Oxygen Therapy [RC] PRN Care 01/27/20 14:02 Active VTE/DVT Education [RC] Per Unit Routine Care 01/27/20 14:02 Active Vital Signs [RC] , Care 01/27/20 14:02 Active Wound Care [RC] Care 01/27/20 20:00 Active OT Evaluation and Treatment [CONS] Routine Cons 01/27/20 14:16 Active PT Evaluation and Treatment [CONS] Routine Cons 01/27/20 14:15 Active Heart Healthy Diet [DIET] Diet 01/27/20 Dinner Ordered CULTURE MRSA SURVEY [RM] Routine Lab 01/27/20 15:30 Ordered INR,PT,PROTHROMBIN TIME [COAG] Routine Lab 01/28/20 07:00 Ordered Acetaminophen [Tylenol Extra Strength] Med 01/27/20 15:30 Ordered 500 mg PO Q6HR PRN Albuterol [Ventolin HFA] Med 01/27/20 15:30 Ordered DOSE gm INH Q4H PRN Ascorbic Acid [Vitamin C] Med 01/28/20 08:00 Ordered 250 mg PO DAILY Betamethasone Dipropionate [Diprosone 0.05% Crm] Med 01/27/20 15:30 Ordered 1 applic TP BID PRN Collagenase [Santyl Oint] Med 01/27/20 20:00 Ordered DOSE gm TOP BID Cyanocobalamin (Vitamin B-12) [Vitamin B-12] Med 01/27/20 20:00 Ordered 2,000 mcg PO BEDTIME Ferrous Sulfate Med 01/28/20 08:00 Ordered 325 mg PO DAILY Gabapentin [Neurontin] Med 01/27/20 20:00 Ordered 300 mg PO BEDTIME Metoprolol Tartrate [Lopressor] Med 01/27/20 20:00 Ordered 12.5 mg PO Q12HR Pnv No.95/Ferrous Fum/Folic AC [ Vitamin Tablet Med 01/28/20 08:00 Ordered ] 1 each PO DAILY Sennosides [Senna] Med 01/27/20 20:00 Ordered 8.6 mg PO BID Tuberculin, PPD [AplisoL] Med 01/27/20 14:19 Once 5 unit IDERM ONETIME ONE Varenicline [Chantix] Med 01/27/20 20:00 Ordered 1 mg PO BID Warfarin [Coumadin] Med 01/28/20 18:00 Ordered 2.5 mg PO DAILY Zinc Sulfate [Zinc Sulfate] Med 01/28/20 08:00 Ordered 220 mg PO DAILY allopurinoL [Zyloprim] Med 01/28/20 08:00 Ordered 100 mg PO DAILY atorvaSTATin [Lipitor] Med 01/27/20 20:00 Ordered 40 mg PO BEDTIME metFORMIN [Glucophage] Med 01/27/20 17:00 Ordered 500 mg PO BIDMEALS oxyCODONE Med 01/27/20 15:30 Ordered 2.5 mg PO Q6H PRN polyethylene glycoL 3350 [MiraLAX] Med 01/27/20 20:00 Ordered 17 gm PO BID Resuscitation Status Routine Resus Stat 01/27/20 14:01 Ordered Medication Orders Acetaminophen (Tylenol Extra Strength) 500 mg PO Q6HR PRN PRN Reason: Pain Albuterol (Ventolin Hfa) gm INH Q4H PRN PRN Reason: Shortness of Breath Allopurinol (Zyloprim) 100 mg PO DAILY JIMMIE Atorvastatin Calcium (Lipitor) 40 mg PO BEDTIME JIMMIE Collagenase (Santyl Oint) gm TOP BID JIMMIE Ferrous Sulfate (Ferrous Sulfate) 325 mg PO DAILY JIMMIE Gabapentin (Neurontin) 300 mg PO BEDTIME JIMMIE Metformin HCl (Glucophage) 500 mg PO BIDMEALS [facility] Metoprolol Tartrate (Lopressor) 12.5 mg PO Q12HR JIMMIE Non-Formulary Medication (Ascorbic Acid [Vitamin C]) 250 mg PO DAILY JIMMIE Non-Formulary Medication (Betamethasone Dipropionate [Diprosone 0.05% Crm]) 1 applic TP BID PRN PRN Reason: Itching Non-Formulary Medication (Cyanocobalamin (Vitamin B-12) [Vitamin B-12]) 2,000 mcg PO BEDTIME JIMMIE Non-Formulary Medication (Pnv No.95/Ferrous Fum/Folic Ac [ Vitamin Tablet]) 1 each PO DAILY [facility] Non-Formulary Medication (Varenicline [Chantix]) 1 mg PO BID JIMMIE Non-Formulary Medication (Zinc Sulfate [Zinc Sulfate]) 220 mg PO DAILY [facility] Oxycodone HCl (Oxycodone) 2.5 mg PO Q6H PRN PRN Reason: Pain Polyethylene Glycol (Miralax) 17 gm PO BID [facility] Senna (Senna) 8.6 mg PO BID [facility] Tuberculin PPD (Aplisol) 5 unit IDERM ONETIME ONE Stop: 01/27/20 14:20 Warfarin Sodium (Coumadin) 2.5 mg PO DAILY [facility] - Mortality Measure Prognosis:: Poor
[2020-01-27] MEDS: oxyCODONE 5 MG Tab PO PRN (17:45)
[2020-01-27] MEDS: metFORMIN 500 MG Tab PO SCH (18:40)
[2020-01-27] MEDS: atorvaSTATin 40 MG Tab PO SCH (19:50)
[2020-01-27] MEDS: Gabapentin 300 MG Cap PO SCH (19:50)
[2020-01-27] MEDS: Collagenase Oint 30 GM Tube TOP SCH (19:50)
[2020-01-27] MEDS ORDERED: VARENICLINE 1 MG PO SCH (20:00)
[2020-01-27] MEDS ORDERED: Non-Formulary Medication 1 Each (Cyanocobalamin (Vitamin B-12) [Vitamin B-12] 2,000 MCG) PO SCH (20:00)
[2020-01-28] MEDS ORDERED: ZINC SULFATE 220 MG PO SCH (08:00)
[2020-01-28] MEDS ORDERED: ASCORBIC ACID 250 MG PO SCH (08:00)
[2020-01-28] MEDS: oxyCODONE 5 MG Tab PO PRN ×2 (08:15→20:09)
[2020-01-28] MEDS: Cyanocobalamin (Vitamin B12) 1,000 MCG Tab PO SCH (08:17)
[2020-01-28] MEDS: Ferrous Sulfate 325 MG Tab PO SCH (08:17)
[2020-01-28] MEDS: Ascorbic Acid 500 MG Tab PO SCH (08:18)
[2020-01-28] MEDS: metFORMIN 500 MG Tab PO SCH ×2 (08:18→17:52)
[2020-01-28] MEDS: Sennosides 8.6 MG Tab PO SCH ×3 (08:19→20:33)
[2020-01-28] MEDS: Allopurinol 100 MG Tab PO SCH (08:19)
[2020-01-28] MEDS: Polyethylene Glycol 3350 Powder 17 GM Packet PO SCH ×2 (08:20→20:12)
[2020-01-28] MEDS: Collagenase Oint 30 GM Tube TOP SCH ×2 (08:20→21:20)
[2020-01-28] MEDS: Metoprolol Tartrate 25 MG Tab PO SCH ×6 (08:23→20:52)
[2020-01-28] MEDS: Acetaminophen 500 MG Tab PO PRN (17:52)
[2020-01-28] MEDS: Warfarin 2.5 MG Tab PO SCH (17:52)
[2020-01-28] MEDS: atorvaSTATin 40 MG Tab PO SCH (20:09)
[2020-01-28] MEDS: Gabapentin 300 MG Cap PO SCH (20:09)
[2020-01-29] MEDS: Acetaminophen 500 MG Tab PO PRN ×2 (01:00→19:34)
[2020-01-29] MEDS: oxyCODONE 5 MG Tab PO PRN ×3 (01:01→19:33)
[2020-01-29] MEDS: Ferrous Sulfate 325 MG Tab PO SCH (08:31)
[2020-01-29] MEDS: Collagenase Oint 30 GM Tube TOP SCH ×2 (08:34→21:06)
[2020-01-29] MEDS: Ascorbic Acid 500 MG Tab PO SCH (08:35)
[2020-01-29] MEDS: Metoprolol Tartrate 25 MG Tab PO SCH ×2 (08:36→21:35)
[2020-01-29] MEDS: Allopurinol 100 MG Tab PO SCH (08:36)
[2020-01-29] MEDS: Cyanocobalamin (Vitamin B12) 1,000 MCG Tab PO SCH (08:37)
[2020-01-29] MEDS: metFORMIN 500 MG Tab PO SCH ×2 (08:37→17:28)
[2020-01-29] MEDS: Sennosides 8.6 MG Tab PO SCH ×2 (08:38→21:36)
[2020-01-29] MEDS: Polyethylene Glycol 3350 Powder 17 GM Packet PO SCH ×2 (08:39→21:35)
[2020-01-29] MEDS ORDERED: Nystatin Ointment 15 GM Tube TOP PRN (16:30)
[2020-01-29] MEDS: Warfarin 2.5 MG Tab PO SCH (17:28)
[2020-01-29] MEDS: atorvaSTATin 40 MG Tab PO SCH (19:33)
[2020-01-29] MEDS: Gabapentin 300 MG Cap PO SCH (19:40)
[2020-01-29] MEDS ORDERED: Nystatin Topical Powder 15 GM Bottle ONE (21:10)
[2020-01-29] MEDS ORDERED: Nystatin Topical Powder 15 GM Bottle TOP PRN (21:12)
[2020-01-30] MEDS: oxyCODONE 5 MG Tab PO PRN ×3 (04:19→18:55)
[2020-01-30] MEDS: Polyethylene Glycol 3350 Powder 17 GM Packet PO SCH ×2 (08:05→20:19)
[2020-01-30] MEDS: Cyanocobalamin (Vitamin B12) 1,000 MCG Tab PO SCH (08:07)
[2020-01-30] MEDS: Ascorbic Acid 500 MG Tab PO SCH (08:08)
[2020-01-30] MEDS: Allopurinol 100 MG Tab PO SCH (08:08)
[2020-01-30] MEDS: metFORMIN 500 MG Tab PO SCH ×2 (08:09→17:35)
[2020-01-30] MEDS: Ferrous Sulfate 325 MG Tab PO SCH (08:09)
[2020-01-30] MEDS: Metoprolol Tartrate 25 MG Tab PO SCH ×2 (08:10→20:37)
[2020-01-30] MEDS: Collagenase Oint 30 GM Tube TOP SCH ×3 (08:12→20:16)
[2020-01-30] MEDS: Sennosides 8.6 MG Tab PO SCH ×2 (08:13→20:39)
[2020-01-30] MEDS: Warfarin 2.5 MG Tab PO SCH (17:36)
[2020-01-30] MEDS: Acetaminophen 500 MG Tab PO PRN (18:55)
[2020-01-30] MEDS: Morphine Oral Concentrate 20 MG/ML 30 ML Bottle PO PRN (20:13)
[2020-01-30] MEDS: atorvaSTATin 40 MG Tab PO SCH (20:37)
[2020-01-30] MEDS: Gabapentin 300 MG Cap PO SCH (20:39)
[2020-01-31] MEDS: Allopurinol 100 MG Tab PO SCH (08:13)
[2020-01-31] MEDS: Ferrous Sulfate 325 MG Tab PO SCH (08:13)
[2020-01-31] MEDS: Cyanocobalamin (Vitamin B12) 1,000 MCG Tab PO SCH (08:14)
[2020-01-31] MEDS: metFORMIN 500 MG Tab PO SCH ×2 (08:14→17:19)
[2020-01-31] MEDS: Sennosides 8.6 MG Tab PO SCH ×2 (08:14→21:12)
[2020-01-31] MEDS: Ascorbic Acid 500 MG Tab PO SCH (08:14)
[2020-01-31] MEDS: Metoprolol Tartrate 25 MG Tab PO SCH ×2 (08:16→21:05)
[2020-01-31] MEDS: Collagenase Oint 30 GM Tube TOP SCH ×2 (08:16→21:09)
[2020-01-31] MEDS: Polyethylene Glycol 3350 Powder 17 GM Packet PO SCH ×2 (08:17→21:11)
[2020-01-31] MEDS: Morphine Oral Concentrate 20 MG/ML 30 ML Bottle PO PRN (10:29)
[2020-01-31] MEDS ORDERED: hydrOXYzine HCl 25 MG Tab PO PRN (13:25)
[2020-01-31] MEDS: Warfarin 2.5 MG Tab PO SCH (17:19)
[2020-01-31] MEDS: atorvaSTATin 40 MG Tab PO SCH (21:09)
[2020-01-31] MEDS: Gabapentin 300 MG Cap PO SCH (21:09)
[2020-01-31] MEDS: oxyCODONE 5 MG Tab PO PRN (21:24)
[2020-01-31] MEDS: Acetaminophen 500 MG Tab PO PRN (21:26)
[2020-02-01] MEDS: Acetaminophen 500 MG Tab PO PRN (05:16)
[2020-02-01] MEDS: Metoprolol Tartrate 25 MG Tab PO SCH ×2 (08:34→19:46)
[2020-02-01] MEDS: Ascorbic Acid 500 MG Tab PO SCH (08:34)
[2020-02-01] MEDS: Ferrous Sulfate 325 MG Tab PO SCH (08:35)
[2020-02-01] MEDS: Allopurinol 100 MG Tab PO SCH (08:35)
[2020-02-01] MEDS: Cyanocobalamin (Vitamin B12) 1,000 MCG Tab PO SCH (08:35)
[2020-02-01] MEDS: metFORMIN 500 MG Tab PO SCH ×2 (08:35→18:26)
[2020-02-01] MEDS: Polyethylene Glycol 3350 Powder 17 GM Packet PO SCH ×2 (10:50→19:47)
[2020-02-01] MEDS: Collagenase Oint 30 GM Tube TOP SCH (10:50)
[2020-02-01] MEDS: Sennosides 8.6 MG Tab PO SCH ×2 (10:51→19:47)
[2020-02-01] MEDS: Warfarin 2.5 MG Tab PO SCH (18:27)
[2020-02-01] MEDS: atorvaSTATin 40 MG Tab PO SCH (19:39)
[2020-02-01] MEDS: Gabapentin 300 MG Cap PO SCH (19:40)
[2020-02-02] MEDS: oxyCODONE 5 MG Tab PO PRN ×2 (07:51→19:22)
[2020-02-02] MEDS: Acetaminophen 500 MG Tab PO PRN ×2 (07:55→19:23)
[2020-02-02] MEDS: Ascorbic Acid 500 MG Tab PO SCH (07:55)
[2020-02-02] MEDS: Ferrous Sulfate 325 MG Tab PO SCH (07:55)
[2020-02-02] MEDS: metFORMIN 500 MG Tab PO SCH ×2 (07:56→18:04)
[2020-02-02] MEDS: Allopurinol 100 MG Tab PO SCH (07:56)
[2020-02-02] MEDS: Cyanocobalamin (Vitamin B12) 1,000 MCG Tab PO SCH (07:56)
[2020-02-02] MEDS: Metoprolol Tartrate 25 MG Tab PO SCH ×2 (08:00→20:54)
[2020-02-02] MEDS: Polyethylene Glycol 3350 Powder 17 GM Packet PO SCH ×2 (08:02→20:55)
[2020-02-02] MEDS: Sennosides 8.6 MG Tab PO SCH ×2 (08:03→20:54)
[2020-02-02] MEDS: Warfarin 2.5 MG Tab PO SCH (18:04)
[2020-02-02] MEDS: atorvaSTATin 40 MG Tab PO SCH (20:11)
[2020-02-02] MEDS: Gabapentin 300 MG Cap PO SCH (20:11)
[2020-02-03] MEDS: Ascorbic Acid 500 MG Tab PO SCH (07:35)
[2020-02-03] MEDS: Cyanocobalamin (Vitamin B12) 1,000 MCG Tab PO SCH (07:36)
[2020-02-03] MEDS: Allopurinol 100 MG Tab PO SCH (07:37)
[2020-02-03] MEDS: metFORMIN 500 MG Tab PO SCH (07:38)
[2020-02-03] MEDS: oxyCODONE 5 MG Tab PO PRN (07:39)
[2020-02-03] MEDS: Metoprolol Tartrate 25 MG Tab PO SCH (07:42)
[2020-02-03] MEDS: Acetaminophen 500 MG Tab PO PRN ×2 (07:43→09:45)
[2020-02-03 07:44] VITALS: BP 63/41; PULSE 98
[2020-02-03] MEDS: Ferrous Sulfate 325 MG Tab PO SCH (07:51)
[2020-02-03] MEDS: Sennosides 8.6 MG Tab PO SCH (08:00)
[2020-02-03] MEDS: Polyethylene Glycol 3350 Powder 17 GM Packet PO SCH (08:00)
--- NOTE | 2020-02-03 09:21 | PCM.DCSUM1 ---
Discharge Summary - Hospital Course Free Text/Narrative:: Crissy remained well throughout her hospital stay. Wound care was achievable with oxycodone and tylenol. She developed some itching, mainly on her back, and was noted to have a mild rash. No new issues noted. - Discharge Data Discharge Date: 02/03/20 Discharge Disposition: Home, Self-Care 01 Condition: Good - Referral to Home Health Primary Care Physician: PCP None - Patient Summary/Data Consults: Consultations 01/27/20 14:15 PT Evaluation and Treatment [CONS] Routine Please Evaluate and Treat. PT Reason for Consult: Wound Care This query below is only for informational purposes and is not editable. Admission Diagnosis/Problem: Amputation of lower limb 01/27/20 14:16 OT Evaluation and Treatment [CONS] Routine Please Evaluate and Treat. OT Reason for Consult: Strengthening This query below is only for informational purposes and is not editable. Admission Diagnosis/Problem: Amputation of lower limb - Patient Instructions Diet: Regular Diet as Tolerated Activity: As Tolerated - Discharge Plan *PRESCRIPTION DRUG MONITORING PROGRAM REVIEWED*: Not Applicable *COPY OF PRESCRIPTION DRUG MONITORING REPORT IN PATIENT KSENIA: Not Applicable Home Medications: Home Meds Albuterol [Ventolin HFA] 1 - 2 puff INH Q4H PRN 03/26/19 [History] Betamethasone Dipropionate [Diprosone 0.05% Crm] 1 applic TP BID PRN 03/26/19 [ History] Ferrous Sulfate 325 mg PO DAILY 03/26/19 [History] Metoprolol Tartrate [Lopressor] 12.5 mg PO Q12HR 03/26/19 [History] Warfarin [Coumadin] 2.5 mg PO DAILY 03/26/19 [History] allopurinoL [Zyloprim] 100 mg PO DAILY 03/26/19 [History] atorvaSTATin [Lipitor] 40 mg PO BEDTIME 03/26/19 [History] metFORMIN [Glucophage] 500 mg PO BIDMEALS 03/26/19 [History] oxyCODONE 2.5 mg PO Q6H PRN 03/26/19 [History] polyethylene glycoL 3350 [MiraLAX] 17 gm PO BID 03/26/19 [History] Acetaminophen 500 mg PO Q6HR PRN 01/27/20 [History] Ascorbic Acid [Vitamin C] 250 mg PO DAILY 01/27/20 [History] Collagenase [Santyl Oint] 1 applic TP BID 01/27/20 [History] Cyanocobalamin (Vitamin B-12) [Vitamin B-12] 2,000 mcg PO BEDTIME 01/27/20 [ History] Gabapentin [Neurontin] 300 mg PO BEDTIME 01/27/20 [History] Pnv No.95/Ferrous Fum/Folic AC [ Vitamin Tablet] 1 each PO DAILY [History] Sennosides [Senna] 8.6 mg PO BID 01/27/20 [History] Varenicline [Chantix] 1 mg PO BID 01/27/20 [History] Zinc Sulfate 220 mg PO DAILY 01/27/20 [History] Patient Handouts: Wound Care, Adult - Discharge Summary/Plan Comment DC Time >30 min.: No Discharge Summary/Plan Comment: Discharge planning remarkable for her hospital bed with trapeze ordered and will be delivered today. Reviewed care plan with patient and her daughter. - Patient Data Vitals - Most Recent: Last Vital Signs Temp 97.8 F 02/02/20 20:00 Pulse 98 02/03/20 07:42 Resp 18 02/02/20 20:00 BP 63/41 L 02/03/20 07:42 Pulse Ox 93 L 02/02/20 20:00 Weight - Most Recent: 104 lb 6.4 oz Lab Results - Last 24 hrs: Laboratory Results - last 24 hr 02/03/20 Range/Units 07:18 POC Glucose 113 H (74-110) mg/dL Med Orders - Current: Current Medications Acetaminophen (Tylenol Extra Strength) 500 mg PO Q6HR PRN PRN Reason: Pain Last Admin: 02/02/20 19:23 Dose: 500 mg Albuterol (Ventolin Hfa) 8 gm INH Q4H PRN PRN Reason: Shortness of Breath Allopurinol (Zyloprim) 100 mg PO DAILY [facility] Last Admin: 02/03/20 07:37 Dose: 100 mg Ascorbic Acid (Vitamin C) 250 mg PO DAILY [facility] Last Admin: 02/03/20 07:35 Dose: 250 mg Atorvastatin Calcium (Lipitor) 40 mg PO BEDTIME [facility] Last Admin: 02/02/20 20:11 Dose: 40 mg Cyanocobalamin (Vitamin B12) 2,000 mcg PO DAILY [facility] Last Admin: 02/03/20 07:36 Dose: 2,000 mcg Ferrous Sulfate (Ferrous Sulfate) 325 mg PO DAILY [facility] Last Admin: 02/03/20 07:51 Dose: 325 mg Gabapentin (Neurontin) 300 mg PO BEDTIME [facility] Last Admin: 02/02/20 20:11 Dose: 300 mg Hydroxyzine HCl (Atarax) 25 mg PO Q6H PRN PRN Reason: itchy Last Admin: 02/02/20 20:53 Dose: 25 mg Metformin HCl (Glucophage) 500 mg PO BIDMEALS [facility] Last Admin: 02/03/20 07:38 Dose: 500 mg Metoprolol Tartrate (Lopressor) 12.5 mg PO Q12HR [facility] Last Admin: 02/03/20 07:42 Dose: 12.5 mg Morphine Sulfate (Morphine 20 Mg/Ml Soln) 0 mg PO Q2H PRN PRN Reason: Pain Last Admin: 01/31/20 10:29 Dose: 10 mg Non-Formulary Medication (Betamethasone Dipropionate [Diprosone 0.05% Crm]) 1 applic TP BID PRN PRN Reason: Itching Non-Formulary Medication (Pnv No.95/Ferrous Fum/Folic Ac [ Vitamin Tablet]) 1 each PO DAILY [facility] Non-Formulary Medication (Varenicline [Chantix]) 1 mg PO BID [facility] Non-Formulary Medication (Zinc Sulfate [Zinc Sulfate]) 220 mg PO DAILY [facility] Nystatin (Nystatin Ointment) 0 gm TOP QID PRN PRN Reason: Itching Last Admin: 01/29/20 16:55 Dose: 1 gm Nystatin (Nystop) 0 gm TOP QID PRN PRN Reason: Rash Last Admin: 01/31/20 13:56 Dose: 1 applic Oxycodone HCl (Oxycodone) 2.5 mg PO Q6H PRN PRN Reason: Pain Last Admin: 02/03/20 07:39 Dose: 2.5 mg Polyethylene Glycol (Miralax) 17 gm PO BID [facility] Last Admin: 02/02/20 20:55 Dose: Not Given Senna (Senna) 8.6 mg PO BID [facility] Last Admin: 02/02/20 20:54 Dose: Not Given Warfarin Sodium (Coumadin) 2.5 mg PO DAILY@1800 [facility] Last Admin: 02/02/20 18:04 Dose: 2.5 mg Discontinued Medications Collagenase (Santyl Oint) 0 gm TOP BID JIMMIE Last Admin: 02/01/20 10:50 Dose: Not Given Nystatin (Nystop) Confirm Administered Dose 15 gm .ROUTE .STK-MED ONE Stop: 01/29/20 21:11 Last Admin: 01/29/20 21:17 Dose: Not Given Tuberculin PPD (Aplisol) 5 unit IDERM ONETIME ONE Stop: 01/27/20 14:20
== END 2020-02-03 13:30 | disposition home or self-care (01) | DRG 560 ==
LOC: LB.MS 01-27 15:21
PROVIDERS: ADMIT Family Medicine; ATTEND Family Medicine
DX: Z47.81 Encounter for orthopedic aftercare following surgical amputation (principal); I48.20 Chronic atrial fibrillation, unspecified; Z89.612 Acquired absence of left leg above knee; Z89.611 Acquired absence of right leg above knee; J44.9 Chronic obstructive pulmonary disease, unspecified; Z66 Do not resuscitate; E11.319 Type 2 diabetes mellitus with unspecified diabetic retinopathy without macular edema; L29.9 Pruritus, unspecified; E11.51 Type 2 diabetes mellitus with diabetic peripheral angiopathy without gangrene; K21.9 Gastro-esophageal reflux disease without esophagitis; I48.91 Unspecified atrial fibrillation; Z90.49 Acquired absence of other specified parts of digestive tract; Z87.891 Personal history of nicotine dependence; Z98.49 Cataract extraction status, unspecified eye; Z79.01 Long term (current) use of anticoagulants; Z79.899 Other long term (current) drug therapy; Z88.7 Allergy status to serum and vaccine; Z88.8 Allergy status to other drugs, medicaments and biological substances
CPT/HCPCS: 36415; 80053; 82962; 85025; 85610; 97110-GO; 97110-GP; 97161-GP; 97165-GO; 97530-GO; 97530-GP; 97535-GO; A9270-GY

== ENCOUNTER 2020-02-15 21:20 | Emergency (ER) | payer MEDICARE, OTHER ==
--- NOTE | 2020-02-15 22:28 | EDM.PDOC ---
ED HPI GENERAL MEDICAL PROBLEM - General Chief Complaint: General Stated Complaint: low BP, low BS and not eating Time Seen by Provider: 02/15/20 22:15 Source of Information: Reports: Patient, Family () History Limitations: Reports: No Limitations - History of Present Illness INITIAL COMMENTS - FREE TEXT/NARRATIVE: This patient arrives to the ED via EMS because "I am mad I am not getting better." Her states that she has had a low blood sugar and a low blood pressure today and this evening was complaining of abdominal pain. Her family also noted she had some slurred speech and was "acting weird." Patient denies any pain, has not had a fever. She states she is not drinking fluids because she doesn't like water and hasn't "eaten in days." She denies vomiting or diarrhea. She denies cough, shortness of breath, or sore throat. Onset: Today Onset Date: 02/15/20 Duration: Getting Worse Location: Reports: Generalized - Related Data Allergies Allergy/AdvReac Type Severity Reaction Status Date / Time brimonidine [From Alphagan P] Allergy Cannot Verified 02/15/20 22:40 Remember Tetanus Vaccines and Toxoid Allergy Cannot Verified 02/15/20 22:40 [Tetanus Vaccines & Toxoid] Remember Home Meds: Home Meds Albuterol [Ventolin HFA] 1 - 2 puff INH Q4H PRN 03/26/19 [History] Betamethasone Dipropionate [Diprosone 0.05% Crm] 1 applic TP BID PRN 03/26/19 [ History] Ferrous Sulfate 325 mg PO DAILY 03/26/19 [History] Metoprolol Tartrate [Lopressor] 12.5 mg PO Q12HR 03/26/19 [History] Warfarin [Coumadin] 2.5 mg PO DAILY 03/26/19 [History] allopurinoL [Zyloprim] 100 mg PO DAILY 03/26/19 [History] atorvaSTATin [Lipitor] 40 mg PO BEDTIME 03/26/19 [History] metFORMIN [Glucophage] 500 mg PO BIDMEALS 03/26/19 [History] Ascorbic Acid [Vitamin C] 250 mg PO DAILY 01/27/20 [History] Collagenase [Santyl Oint] 1 applic TP BID 01/27/20 [History] Cyanocobalamin (Vitamin B-12) [Vitamin B-12] 2,000 mcg PO BEDTIME 01/27/20 [ History] Gabapentin [Neurontin] 300 mg PO BEDTIME 01/27/20 [History] Pnv No.95/Ferrous Fum/Folic AC [ Vitamin Tablet] 1 each PO DAILY [History] Varenicline [Chantix] 1 mg PO BID 01/27/20 [History] Zinc Sulfate 220 mg PO DAILY 01/27/20 [History] Betamethasone Dipropionate [Diprosone 0.05% Crm] 1 applic TP BID PRN #1 [Rx] Nystatin [Nystop] 0 gm TOP QID PRN #1 bottle 02/03/20 [Rx] Acetaminophen 1,000 mg PO Q6HR PRN 02/15/20 [History] Aspirin 81 mg PO DAILY 02/15/20 [History] Clopidogrel [Plavix] 75 mg PO DAILY 02/15/20 [History] Past Medical History HEENT History: Reports: Cataract, Impaired Vision, Other (See Below) Other HEENT History: plate in right eye approx 4 years ago in [place] to attemp to lift eyelid in [place] Cardiovascular History: Reports: Afib Other Cardiovascular History: Peripheral artery disease Respiratory History: Reports: COPD, Croup, SOB Other Respiratory History: SOB with activity Gastrointestinal History: Reports: GERD [employer] History: Reports: Musculoskeletal History: Reports: Amputation, Other (See Below) Other Musculoskeletal History: uses a walker at home when she has a sore foot Endocrine/Metabolic History: Reports: Diabetes, Type II Hematologic History: Reports: Blood Transfusion(s) Other Hematologic History: 02/03 Dermatologic History: Reports: Cellulitis - Infectious Disease History Infectious Disease History: Reports: MRSA Other Infectious Disease History: Measles as a child, MRSA positive at [facility] on 01/13[facility]20 - Past Surgical History HEENT Surgical History: Reports: Cataract Surgery Cardiovascular Surgical History: Reports: None Respiratory Surgical History: Reports: None Musculoskeletal Surgical History: Reports: None, Amputation Other Musculoskeletal Surgeries/Procedures:: Bilateral [id number] amputations - History Comment History Comment: Past medical history is remarkable for chronic atrial fibrillation anticoagulated on warfarin history of branch retinal 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 right eye carotid stenosis COPD type 2 diabetes mellitus with diabetic retinopathy and glaucoma history of hypertension although her current blood pressure status runs in the neighborhood of 70 systolic she has severe rosacea past surgical conditions include bilateral [id number] amputations for critical ischemia and gangrene status post remote appendectomy has a history of a Avastin injections in August 2013 as well as bilateral cataract extractions her last colonoscopy I believe was in January 2015 it is not sure when she was recommended for repeat surveillance she had a wound VAC for wounds of her right lower extremity in March 2019 she is status post right femoral endarterectomy status post remote hysterectomy status post multiple other eye surgeries and a history of skin grafting of her right lower extremity Social & Family History - Family History HEENT: Reports: Other (See Below) Other HEENT Family History: states sister has eye problems Cardiac: Reports: Other (See Below) Other Cardiac Family History: Brother with some heart problems Respiratory: Reports: None - Caffeine Use Caffeine Use: Reports: Coffee Other Caffeine Use: 2 coffees, 1 pop/day ED ROS GENERAL - Review of Systems Review Of Systems: See Below Constitutional: Reports: Weakness. Denies: Fever HEENT: Denies: Ear Pain, Eye Pain, Throat Pain Respiratory: Denies: Shortness of Breath, Wheezing, Cough Cardiovascular: Denies: Chest Pain Endocrine: Reports: Low Glucose GI/Abdominal: Reports: Abdominal Pain, Decreased Appetite. Denies: Nausea, Vomiting Skin: Reports: Mottled, Bruising Neurological: Reports: No Symptoms, Other (slurred speech) ED EXAM, GENERAL - Physical Exam Exam: See Below Exam Limited By: No Limitations General Appearance: Alert, WD/WN, No Apparent Distress, Other ("I feel fine now. ") Eye Exam: Bilateral Eye: PERRL Ears: Normal External Exam Nose: Normal Inspection Throat/Mouth: Normal Inspection, Normal Oropharynx Head: Atraumatic, Normocephalic Neck: Normal Inspection, Supple, Non-Tender, Full Range of Motion Respiratory/Chest: No Respiratory Distress, Lungs Clear, Normal Breath Sounds Cardiovascular: Regular Rate, Rhythm GI/Abdominal: Normal Bowel Sounds, Soft, Non-Tender, No Distention Extremities: Other (bilateral [id number] amputee) Psychiatric: Normal Affect, Normal Mood Skin Exam: Warm, Dry, Normal Color, No Rash, Cool (hands) Course - Orders/Labs/Meds Orders: Active Orders 24 hr Category Date Time Status Admission Status [Patient Status] [ADT] Routine ADT 02/15/20 22:49 Active Bedrest Bedside Commode [RC] ASDIRECTED Care 02/15/20 22:50 Active Blood Glucose Check, Bedside [RC] QIDACANDBED Care 02/15/20 22:50 Active Oxygen Therapy [RC] PRN Care 02/15/20 22:51 Active Pulse Oximetry [RC] PRN Care 02/15/20 22:52 Active VTE/DVT Education [RC] Per Unit Routine Care 02/15/20 22:51 Active Vital Signs [RC] Q4H Care 02/15/20 22:51 Active Regular Diet [DIET] Diet 02/16/20 Breakfast Ordered Chest 1V Frontal [CR] Stat Exams 02/15/20 22:17 Taken CBC WITH AUTO DIFF [HEME] AM Lab 02/16/20 05:11 Ordered INR,PT,PROTHROMBIN TIME [COAG] Stat Lab 02/15/20 22:30 Received Acetaminophen [Tylenol Extra Strength] Med 02/15/20 22:54 Active 1,000 mg PO Q6HR PRN Acetaminophen [Tylenol] Med 02/15/20 22:50 Active 650 mg PO Q4H PRN Albuterol [Ventolin HFA] Med 02/15/20 22:54 Ordered DOSE gm INH Q4H PRN Ascorbic Acid [Vitamin C] Med 02/16/20 08:00 Active 250 mg PO DAILY Aspirin Med 02/16/20 08:00 Active 81 mg PO DAILY Clopidogrel [Plavix] Med 02/16/20 08:00 Active 75 mg PO DAILY Cyanocobalamin (Vitamin B-12) [Vitamin B-12] Med 02/16/20 20:00 Active 2,000 mcg PO BEDTIME Ferrous Sulfate Med 02/16/20 08:00 Active 325 mg PO DAILY Gabapentin [Neurontin] Med 02/16/20 20:00 Active 300 mg PO BEDTIME LORazepam [Ativan] Med 02/15/20 22:50 Active 1 mg IV Q6H PRN Metoprolol Tartrate [Lopressor] Med 02/16/20 08:00 Active 12.5 mg PO Q12HR Ondansetron [Zofran] Med 02/15/20 22:50 Ordered 4 mg IV Q4H PRN Varenicline [Chantix] Med 02/15/20 23:00 Active 1 mg PO BID Warfarin [Coumadin] Med 02/16/20 08:00 Active 2.5 mg PO DAILY Zinc Sulfate [Zinc Sulfate] Med 02/16/20 08:00 Active 220 mg PO DAILY allopurinoL [Zyloprim] Med 02/16/20 08:00 Active 100 mg PO DAILY atorvaSTATin [Lipitor] Med 02/16/20 20:00 Active 40 mg PO BEDTIME metFORMIN [Glucophage] Med 02/16/20 08:00 Active 500 mg PO BIDMEALS Transfuse RBC [Transfuse Red Blood Cells] [COMM] Stat Oth 02/15/20 22:47 Ordered Resuscitation Status Routine Resus Stat 02/15/20 22:50 Ordered Medication Orders Acetaminophen (Tylenol) 650 mg PO Q4H PRN PRN Reason: Pain (Mild 1-3)/fever Acetaminophen (Tylenol Extra Strength) 1,000 mg PO Q6HR PRN PRN Reason: Pain Albuterol (Ventolin Hfa) gm INH Q4H PRN PRN Reason: Shortness of Breath Allopurinol (Zyloprim) 100 mg PO DAILY [facility] Aspirin (Aspirin) 81 mg PO DAILY [facility] Atorvastatin Calcium (Lipitor) 40 mg PO BEDTIME [facility] Clopidogrel Bisulfate (Plavix) 75 mg PO DAILY [facility] Ferrous Sulfate (Ferrous Sulfate) 325 mg PO DAILY [facility] Gabapentin (Neurontin) 300 mg PO BEDTIME [facility] Lorazepam (Ativan) 1 mg IV Q6H PRN PRN Reason: Anxiety Metformin HCl (Glucophage) 500 mg PO BIDMEALS [facility] Metoprolol Tartrate (Lopressor) 12.5 mg PO Q12HR [facility] Non-Formulary Medication (Ascorbic Acid [Vitamin C]) 250 mg PO DAILY [facility] Non-Formulary Medication (Cyanocobalamin (Vitamin B-12) [Vitamin B-12]) 2,000 mcg PO BEDTIME [facility] Non-Formulary Medication (Varenicline [Chantix]) 1 mg PO BID [facility] Non-Formulary Medication (Zinc Sulfate [Zinc Sulfate]) 220 mg PO DAILY [facility] Ondansetron HCl (Zofran) 4 mg IV Q4H PRN PRN Reason: Nausea/Vomiting Warfarin Sodium (Coumadin) 2.5 mg PO DAILY [facility] Labs: Laboratory Tests 02/15/20 02/15/20 Range/Units 22:30 22:30 WBC 12.4 H (4.0-11.0) K/uL RBC 1.97 L (3.80-5.80) M/uL Hgb 5.8 L* D (11.5-16.5) g/dL Hct 18.4 L* D (37.0-47.0) % MCV 93 (76-96) fL MCH 29.4 (27.0-32.0) pg MCHC 31.5 (31.0-35.0) g/dL RDW 21.7 H (11.0-16.0) % Plt Count 386 (150-500) K/uL MPV 10.8 H (6.0-10.0) fL Neut % (Auto) 68.0 (45.0-70.0) % Lymph % (Auto) 23.6 (20.0-40.0) % [place] % (Auto) 7.9 (3.0-10.0) % Eos % (Auto) 0.2 L (1.0-5.0) % Baso % (Auto) 0.3 (0.0-0.5) % Neut # (Auto) 8.42 H (2.00-7.50) K/uL Lymph # (Auto) 2.93 (1.50-4.00) K/uL [place] # (Auto) 0.98 H (0.20-0.80) K/uL Eos # (Auto) 0.03 L (0.04-0.40) K/uL Baso # (Auto) 0.04 (0.02-0.10) K/uL Sodium 134 L (136-145) mmol/L Potassium 4.2 (3.5-5.1) mmol/L Chloride 97 L (98-107) mmol/L Carbon Dioxide 29.2 (21.0-32.0) mmol/L Anion Gap 12.0 (5.0-15.0) mmol/L BUN 21 D (8-26) mg/dL Creatinine 0.68 (0.55-1.02) mg/dL Est Cr Clr Drug Dosing TNP Estimated GFR (MDRD) > 60 (>60) MLS/MIN BUN/Creatinine Ratio 30.9 H (6-25) Glucose 153 H (74-100) mg/dL Calcium 8.7 (8.5-10.1) mg/dL Meds: Medications Generic Name Dose Route Start Last Admin Trade Name Freq PRN Reason Stop Dose Admin Acetaminophen 650 mg 02/15/20 22:50 Tylenol PO Q4H PRN Pain (Mild 1-3)/fever Acetaminophen 1,000 mg 02/15/20 22:54 Tylenol Extra Strength PO Q6HR PRN Pain Albuterol gm 02/15/20 22:54 Ventolin Hfa INH Q4H PRN Shortness of Breath Allopurinol 100 mg 02/16/20 08:00 Zyloprim PO DAILY [facility] Aspirin 81 mg 02/16/20 08:00 Aspirin PO DAILY [facility] Atorvastatin Calcium 40 mg 02/16/20 20:00 Lipitor PO BEDTIME [facility] Clopidogrel Bisulfate 75 mg 02/16/20 08:00 Plavix PO DAILY [facility] Ferrous Sulfate 325 mg 02/16/20 08:00 Ferrous Sulfate PO DAILY [facility] Gabapentin 300 mg 02/16/20 20:00 Neurontin PO BEDTIME [facility] Lorazepam 1 mg 02/15/20 22:50 Ativan IV Q6H PRN Anxiety Metformin HCl 500 mg 02/16/20 08:00 Glucophage PO BIDMEALS [facility] Metoprolol Tartrate 12.5 mg 02/16/20 08:00 Lopressor PO Q12HR [facility] Non-Formulary Medication 250 mg 02/16/20 08:00 Ascorbic Acid [Vitamin C] PO DAILY [facility] Non-Formulary Medication 2,000 mcg 02/16/20 20:00 Cyanocobalamin (Vitamin B-12) [Vitamin B-12] PO BEDTIME [facility] Non-Formulary Medication 1 mg 02/15/20 23:00 Varenicline [Chantix] PO BID [facility] Non-Formulary Medication 220 mg 02/16/20 08:00 Zinc Sulfate [Zinc Sulfate] PO DAILY [facility] Ondansetron HCl 4 mg 02/15/20 22:50 Zofran IV Q4H PRN Nausea/Vomiting Warfarin Sodium 2.5 mg 02/16/20 08:00 Coumadin PO DAILY [facility] - Re-Assessments/Exams Free Text/Narrative Re-Assessment/Exam: 02/15/20 23:04 This patient presents to the ED for evaluation. History and clinical findings are most consistent with anemia. She will be admitted to the inpatient unit on observation status for transfusion of 2 units whole blood. Departure - Departure Time of Disposition: 23:15 Disposition: Refer to Observation Condition: Fair Clinical Impression: Anemia - Discharge Information Referrals: PCP,None [Primary Care Provider] - Forms: ED Department Discharge Sepsis Event Note - Focused Exam Date Exam was Performed: 02/15/20 Time Exam was Performed: 23:03 - My Orders Last 24 Hours: My Active Orders 02/15/20 22:17 Chest 1V Frontal [CR] Stat 02/15/20 22:30 INR,PT,PROTHROMBIN TIME [COAG] Stat 02/15/20 22:47 Transfuse RBC [Transfuse Red Blood Cells] [COMM] Stat 02/15/20 22:49 Admission Status [Patient Status] [ADT] Routine 02/15/20 22:50 Bedrest Bedside Commode [RC] ASDIRECTED Blood Glucose Check, Bedside [RC] QIDACANDBED Acetaminophen [Tylenol] 650 mg PO Q4H PRN LORazepam [Ativan] 1 mg IV Q6H PRN Ondansetron [Zofran] 4 mg IV Q4H PRN Resuscitation Status Routine 02/15/20 22:51 Oxygen Therapy [RC] PRN VTE/DVT Education [RC] Per Unit Routine Vital Signs [RC] Q4H 02/15/20 22:52 Pulse Oximetry [RC] PRN 02/15/20 22:54 Acetaminophen [Tylenol Extra Strength] 1,000 mg PO Q6HR PRN Albuterol [Ventolin HFA] DOSE gm INH Q4H PRN 02/15/20 23:00 Varenicline [Chantix] 1 mg PO BID 02/16/20 05:11 CBC WITH AUTO DIFF [HEME] AM 02/16/20 08:00 Ascorbic Acid [Vitamin C] 250 mg PO DAILY Aspirin 81 mg PO DAILY Clopidogrel [Plavix] 75 mg PO DAILY Ferrous Sulfate 325 mg PO DAILY Metoprolol Tartrate [Lopressor] 12.5 mg PO Q12HR Warfarin [Coumadin] 2.5 mg PO DAILY Zinc Sulfate [Zinc Sulfate] 220 mg PO DAILY allopurinoL [Zyloprim] 100 mg PO DAILY metFORMIN [Glucophage] 500 mg PO BIDMEALS 02/16/20 20:00 Cyanocobalamin (Vitamin B-12) [Vitamin B-12] 2,000 mcg PO BEDTIME Gabapentin [Neurontin] 300 mg PO BEDTIME atorvaSTATin [Lipitor] 40 mg PO BEDTIME 02/16/20 Breakfast Regular Diet [DIET] - Assessment/Plan Last 24 Hours: My Active Orders 02/15/20 22:17 Chest 1V Frontal [CR] Stat 02/15/20 22:30 INR,PT,PROTHROMBIN TIME [COAG] Stat 02/15/20 22:47 Transfuse RBC [Transfuse Red Blood Cells] [COMM] Stat 02/15/20 22:49 Admission Status [Patient Status] [ADT] Routine 02/15/20 22:50 Bedrest Bedside Commode [RC] ASDIRECTED Blood Glucose Check, Bedside [RC] QIDACANDBED Acetaminophen [Tylenol] 650 mg PO Q4H PRN LORazepam [Ativan] 1 mg IV Q6H PRN Ondansetron [Zofran] 4 mg IV Q4H PRN Resuscitation Status Routine 02/15/20 22:51 Oxygen Therapy [RC] PRN VTE/DVT Education [RC] Per Unit Routine Vital Signs [RC] Q4H 02/15/20 22:52 Pulse Oximetry [RC] PRN 02/15/20 22:54 Acetaminophen [Tylenol Extra Strength] 1,000 mg PO Q6HR PRN Albuterol [Ventolin HFA] DOSE gm INH Q4H PRN 02/15/20 23:00 Varenicline [Chantix] 1 mg PO BID 02/16/20 05:11 CBC WITH AUTO DIFF [HEME] AM 02/16/20 08:00 Ascorbic Acid [Vitamin C] 250 mg PO DAILY Aspirin 81 mg PO DAILY Clopidogrel [Plavix] 75 mg PO DAILY Ferrous Sulfate 325 mg PO DAILY Metoprolol Tartrate [Lopressor] 12.5 mg PO Q12HR Warfarin [Coumadin] 2.5 mg PO DAILY Zinc Sulfate [Zinc Sulfate] 220 mg PO DAILY allopurinoL [Zyloprim] 100 mg PO DAILY metFORMIN [Glucophage] 500 mg PO BIDMEALS 02/16/20 20:00 Cyanocobalamin (Vitamin B-12) [Vitamin B-12] 2,000 mcg PO BEDTIME Gabapentin [Neurontin] 300 mg PO BEDTIME atorvaSTATin [Lipitor] 40 mg PO BEDTIME 02/16/20 Breakfast Regular Diet [DIET]
[2020-02-15] MEDS ORDERED: Acetaminophen 325 MG Tab PO PRN (22:50)
[2020-02-15] MEDS ORDERED: Ondansetron 4 MG/2 ML SDV IV PRN (22:50)
[2020-02-15] MEDS ORDERED: LORazepam 2 MG/ML SDV IV PRN (22:50)
[2020-02-15] MEDS ORDERED: Acetaminophen 500 MG Tab PO PRN (22:54)
[2020-02-15] MEDS ORDERED: Albuterol 8 GM Inhaler INH PRN (22:54)
[2020-02-15] MEDS ORDERED: VARENICLINE 1 MG PO SCH (23:00)
--- NOTE | 2020-02-15 23:22 | CR ---
CLINICAL DATA: SOB. AP CHEST, 15 FEBRUARY 2020: Comparison is made to a prior exam dated May 18, 2017. The heart size is normal. There is calcification of the aortic arch. The lungs are mildly hyperexpanded but clear. No pneumothorax. No pleural effusions. No evidence of acute intrathoracic disease. Job: [id number] MTDD
[2020-02-15] MEDS ORDERED: Phytonadione 10 MG in Sodium Chloride 0.9% 50 ML IV ONE (23:34)
[2020-02-15] MEDS: Sodium Chloride 0.9% 1,000 ML IV SCH (23:50)
--- NOTE | 2020-02-16 00:06 | PCM.SN ---
- Free Text/Narrative Note: Lab notified of critical values: hemoglobin = 5.8 with INR >10. Guiac positive. Contacted [facility] and spoke with Dr. Simpson in the ED who did agree to accept her in transfer. Whole blood was started along with normal saline. The patient was premedicated with tylenol and Benadryl. Air Transfer initiated through [facility].
[2020-02-16] MEDS ORDERED: diphenhydrAMINE 50 MG/ML SDV IVPUSH PRN (00:07)
[2020-02-16] MEDS ORDERED: Acetaminophen 325 MG Tab PO ONE (00:07)
[2020-02-16] MEDS ORDERED: diphenhydrAMINE 50 MG/ML SDV ONE (00:10)
[2020-02-16] MEDS ORDERED: Acetaminophen 325 MG Tab ONE (00:10)
[2020-02-16] MEDS ORDERED: LORazepam 2 MG/ML SDV ONE (01:18)
[2020-02-16] MEDS ORDERED: DOBUTamine/Dextrose 5%-Water 250 MG/250 ML BAG IV SCH (01:30)
[2020-02-16] MEDS: Sodium Chloride 0.9% 1,000 ML IV SCH (03:35)
[2020-02-16] MEDS ORDERED: ZINC SULFATE 220 MG PO SCH (08:00)
[2020-02-16] MEDS ORDERED: metFORMIN 500 MG Tab PO SCH (08:00)
[2020-02-16] MEDS ORDERED: Warfarin 2.5 MG Tab PO SCH (08:00)
[2020-02-16] MEDS ORDERED: Aspirin 81 MG Tab.Chew PO SCH (08:00)
[2020-02-16] MEDS ORDERED: Metoprolol Tartrate 25 MG Tab PO SCH (08:00)
[2020-02-16] MEDS ORDERED: Allopurinol 100 MG Tab PO SCH (08:00)
[2020-02-16] MEDS ORDERED: Ferrous Sulfate 325 MG Tab PO SCH (08:00)
[2020-02-16] MEDS ORDERED: ASCORBIC ACID 250 MG PO SCH (08:00)
[2020-02-16] MEDS ORDERED: Clopidogrel 75 MG Tab PO SCH (08:00)
--- NOTE | 2020-02-16 09:53 | CR ---
DATE OF SERVICE: 02/16/20 CLINICAL DATA: intubation AP CHEST: Comparison made to a prior exam dated 02/15/20. There is an endotracheal tube in place with its distal tip 2 cm above the guerrero. The heart size is stable. The lungs remain clear. No pneumothorax. No pleural effusions. [id number] [facility]
[2020-02-16] MEDS ORDERED: atorvaSTATin 40 MG Tab PO SCH (20:00)
[2020-02-16] MEDS ORDERED: Gabapentin 300 MG Cap PO SCH (20:00)
[2020-02-16] MEDS ORDERED: Non-Formulary Medication 1 Each (Cyanocobalamin (Vitamin B-12) [Vitamin B-12] 2,000 MCG) PO SCH (20:00)
== END 2020-02-16 03:45 ==
LOC: LB.ED 21:20 → INTOOBSV 22:49 → UNDOADMOB 22:49 → LB.MS 22:49 → UNDODISOB 02-16 03:45 → LB.ED 02-16 03:45
DX: K92.2 Gastrointestinal hemorrhage, unspecified (principal); D64.9 Anemia, unspecified; I48.91 Unspecified atrial fibrillation; I95.9 Hypotension, unspecified; E11.9 Type 2 diabetes mellitus without complications; Z88.8 Allergy status to other drugs, medicaments and biological substances; Z79.899 Other long term (current) drug therapy; Z79.82 Long term (current) use of aspirin
CPT/HCPCS: 36415; 36430; 71045; 80048; 81001; 82272; 85025; 85610; 86850; 86900; 86901; 86920; 86922; 87086; 93005; 96365; 96366; 96375; 99285-25; 99291; 99292; A0425; A0429; A9270-GY; J1200; J1250; J2060; J7030; P9016